=== PATIENT | male | born 1975 | race Caucasian/White ===

== ENCOUNTER 2024-06-02 18:22 | Outpatient (CLI) | payer OTHER, SELFPAY ==
[2024-06-02 18:29] LABS: Abs Immature Grans 0.01 10^3/uL (0.0-0.06); Absolute Basophil Count 0.06 10^3/uL (0.0-0.2); Absolute Eosinophil Count 0.09 10^3/uL (0.0-0.7); Absolute Lymphocyte Count 2.06 10^3/uL (1.2-3.4); Absolute Monocyte Count 0.54 10^3/uL (0.1-0.8); Absolute Neutrophil Count 3.02 10^3/uL (1.2-6.7); Eosinophils % 1.6 %; HCT 42.6 % (40.0-50.0); HGB 14.4 g/dL (13.5-17.5); Immature Grans % 0.2 %; Lymphocytes % 35.6 %; MCH 28.3 pg (27.0-33.0); MCHC 33.8 % (32.0-36.0); MCV 84 fL (80-95); Monocytes % 9.3 %; Neutrophils % 52.3 %; Platelet Count 220 10^3/uL (130-400); RBC 5.08 10^6/uL (4.36-5.78); RDW 12.6 % (11.8-14.1); RDW-SD 38.6 fL; WBC 5.78 10^3/uL (4.4-10.8)
[2024-06-02 18:44] LABS: ALT 31 U/L (16-63); AST 22 U/L (15-37); Albumin 4.4 g/dL (3.4-5.0); Alkaline Phosphatase 47 U/L (46-116); BUN 10 mg/dL (7-18); Bilirubin, Total 0.64 mg/dL (0.2-1.0); Calcium 8.9 mg/dL (8.5-10.1); Calculated LDL 93 mg/dL (<100); Chloride 105 mmol/L (98-107); Cholesterol 191 mg/dL (<200); Estimated GFR 93.42 (mL/min/1.73m2); Glucose 103 mg/dL (74-106); HDL Cholesterol 63 mg/dL (40-60); Potassium 4.5 mmol/L (3.5-5.1); Sodium 139 mmol/L (136-145); Total Protein 8.2 g/dL (6.4-8.2); Triglyceride 176 mg/dL (<150)
== END 2024-06-02 18:23 | disposition home or self-care (01) ==
LOC: LBO 18:23
PROVIDERS: PCP Nurse Practitioner; Visit Provider Nurse Practitioner
DX: I10 Essential (primary) hypertension (principal); E78.5 Hyperlipidemia, unspecified
CPT/HCPCS: 80053; 80061; 85025

== ENCOUNTER 2024-11-27 15:39 | Outpatient (CLI) | payer BC, SELFPAY ==
--- OUTSIDE RECORDS SUMMARY | 2024-11-27 15:41 | XMS_ITS | Referral Summary ---
Author Organization [facility] Address [address] [place] [address] Care Team Providers Care Hand Cigar Making Supervisor Name Role Phone None, Provider Primary Care Provider Unavailabl e Encounters Date Type Department Care Team Description 10/26/2024 Travel 10/26/2024 7:11 EST - 10/26/2024 7:37 EST Emergency [facility] Emergency Department [address] [place] [address] Raymundo Leslie MD Hypertension, unspecified type (Primary Dx) Discharge Disposition: Home or Self Care 10/24/2024 7:45 EST Phlebotomy Only [facility] - Outpatient Phlebotomy Drawing [address] [place], [place] [id number] Lab, [facility] Op Phlebotomy Immunity status testing from Last 3 Months Allergies No known active allergies Medications LORazepam (ATIVAN) 0.5 mg tabletIndications: Moderate anxiety,Psychophys iological insomnia Take 1 Tablet by mouth daily as needed for Anxiety. Daily Max: 0.5 mg 14 Tablet 1 2 Active polyethylene glycol 3350 (MIRALAX) 17 gram packet Take 17 g by mouth daily. Active irbesartan (AVAPRO) 300 mg tabletIndications: Essential (primary) hypertension Take 1 Tablet by mouth daily. 90 Tablet 3 3 Active fluocinonide (LIDEX) 0.05 % creamIndications:E czema, unspecified type 1 linda applied topically 3 times a day 30 g 1 3 Active rosuvastatin (CRESTOR) 20 mg tabletIndications: Mixed hyperlipidemia 1 tab(s) orally once a day (at bedtime) 90 Tablet 3 3 Active irbesartan (AVAPRO) 300 mg tablet Take 1 Tablet by mouth daily. 30 Tablet 4 Active Active Problems Problem Noted Date Diagnosed Date Essential (primary) hypertension 12/01/2019 Eczema 12/01/2019 Mixed hyperlipidemia 11/09/2019 Resolved Problems Problem Noted Date Diagnosed Date Resolved Date Ankle instability, left 12/29/2019/1 BMI 30.0-30.9,adult 12/29/2019 03/30/20 22 Hemangioma 12/29/2019 01/08/2020 History of basal cell cancer 12/29/2019 01/08/2020 Immunizations Name Administration Dates Next Due Covid-19 mRNA Booster Vaccin e (MODERNA COVID-19 BOOSTER) PF 0.25 mL IM (18 yrs+) 10/14/2021 Covid-19 mRNA Vaccine (MODER NA COVID-19) PF 0.5 ml IM (12 yrs+) 04/18/2021,03/21/2021 Covid-19 mRNA-LNP Bivalent V accine (Wellness[employer] BIVALENT VACCINE) PF 0.3 mL IM (12 yrs+) 12/07/2022 Hepatitis B Vaccine Adult IM 07/07/2021,02/04/20 21,01/03/2021 Historical Influenza Vaccine, Unspecified 2020 Influenza Vaccine Quad (AFLU MERON) PF 0.5 ml IM (3 yrs+) 09/22/2019,12/25/2016 Influenza Vaccine Quad (FLUZ ONE) MDV w/preserv 0.5 ml IM (6 mos+) 12/07/2022 Influenza Vaccine Quad PF 0. 5 ml IM (6 mos+) 08/30/2020 PPD Skin Test Placement 04/16/2021 Td (Adult) (TDVAX) 2 Lf Vaccine =>7yo IM 021,01/08/2020 Tdap Vaccine =>7YO IM 01/29/2010 Social History Tobacco Use Types Packs/Day Years Used Date Smoking Tobacco: Former Smokeless Tobacco: Never Tobacco Cessation:Counseling Given: Not Answered Humiliation, Afraid, Rape, and Kick questionnair e Answer Date Recorded Within the last year, have y ou been afraid of your partner or ex-partner? No 07/08/2020 Within the last year, have y ou been humiliated or emotionally abused in other ways by your partner or ex-partner? No Within the last year, have y ou been kicked, hit, slapped, or otherwise physically hurt by your partner or ex-partner? No 07/08/2020 Within the last year, have y ou been raped or forced to have any kind of sexual activity by your partner or ex-partner? No 07/08/2020 Overall Financial Resource Strain (CARDIA) Answe r Date Recorded How hard is it for you to pa y for the very basics like food, housing, medical care, and heating? Not hard at all 12/02/2021 PHQ-2 Answer Date Recorded PHQ-2 SUBTOTAL 0 05/06/2022 Hunger Vital Sign Answer Date Recorded Within the past 12 months, y ou worried that your food would run out before you got the money to buy more. Never true 12/02/19 22 Within the past 12 months, t he food you bought just didn't last and you didn't have money to get more. Never true 12/02/2021 PRAPARE - Transportation Answer Date Re corded In the past 12 months, has l ack of transportation kept you from medical appointments or from getting medications? No 02/2022 In the past 12 months, has l ack of transportation kept you from meetings, work, or from getting things needed for daily living? No 12/02/2021 Housing Stability Vital Sign Answer Brenton e Recorded In the last 12 months, was t here a time when you were not able to pay the mortgage or rent on time? No 12/02/2021 Number of Places Lived in the Last Year Not on f ile 12/02/2021 In the last 12 months, was t here a time when you did not have a steady place to sleep or slept in a assisted (including now)? No 12/02/2021 Interpersonal Safety Answer Date Record ed How often does anyone, melvin jeong family, hit, punch or physically hurt you? Never 12/02/2021 How often does anyone, melvin jeong family, insult, scream, curse or threaten to hurt you? Never 12/02/2021 Sex and Gender Information Value Date Recorded Sex Assigned at Male 10/24/2024 7:41 EST Legal Sex Male 18:41 EST Gender Identity Male 01/03/2020 14:38 EST Sexual Orientation Not on file Last Filed Vital Signs Vital Sign Reading Time Taken Comments Blood Pressure 180/106 10/26/2024 0737 EST Pulse 45 10/26/2024 0737 EST Temperature 36.7 ??C (98 ??F) 10/26/2024 0712 EST Respiratory Rate 16 10/26/2024 0737 EST Oxygen Saturation 99% 10/26/2024 0737 EST Inhaled Oxygen Concentration - - Weight 93.4 kg (206 lb) 10/26/2024 0727 EST Height 172.7 cm (5' 8) 10/26/2024 0721 EST Body Mass Index 31.32 10/26/2024 0721 EST Plan of Treatment Not on file Procedures Procedure Name Priority Date/Time Associated Diagnosis Comments HEPATITIS B SURFACE ANTIBODY Routine 10/24/2024 7:47 EST Immunity status testing VARICELLA IGG ANTIBODY Routine 10/24/2024 7:47 EST Immunity status testing HEPATITIS C AB W REFLEX TO HCV RNA BY PCR Routine 12/15/2022 12:55 EST Routine screening for STI (sexually transmitted infection) HIV 1/2 ANTIGEN AND ANTIBODY, 4TH GENERATION Routine 12/15/2022 12:55 EST Routine screening for STI (sexually transmitted infection) LIPID PROFILE (INCLUDES CHOLESTEROL, TRIGLYCERIDES, HDL, LDL) Routine 12/15/2022 12:55 EST Mixed hyperlipidemia from Last 3 Months or Most Recently Relevant to Health Maintenance Results * HEPATITIS B SURFACE ANTIBODY (10/24/2024 7:47 EST) Hep B Surface Ab, Quantitative >1,000.0 See Note mIU/mL 10/24/2024 12:28 EST [facility] Comment: Clinical Interpretation of Immune Status: Anti-HBs detected at >10 mIU/mL. Patient is considered to be immune to infection with HBV. It has not been determined what the clinical significance is for values greater than or = 12 mIU/mL, other than the individual is considered to be immune to HBV infection. Reference Range for Hep B Surface Ab, Quant: Positive: ?>= 12.00 mIU/mL Negative: ?< 5.00 mIU/mL Indeterminate: ??>= 5.00 mIU/mL and < 12.00 mIU/mL Blood VENOUS BLOOD / Unknown Venipuncture / Unknown 10/24/2024 7:47 EST 10/24/2024 8:39 EST us Alondra Head MD CHEMISTRY & BLOOD GAS ORDERABL ES Final Result Performing Organization Address [facility] Co de Phone Number [facility] [address] [place] [phone] * VARICELLA IGG ANTIBODY (10/24/2024 7:47 EST) Varicella IgG Ab Positive See Note 10/24/2024 20:49 EST [facility] Blood VENOUS BLOOD / Unknown Venipuncture / Unknown 10/24/2024 7:47 EST 10/24/2024 8:39 EST us Alondra Head MD IMMUNOLOGY AND SEROLOGY ORDERA BLES Final Result Performing Organization Address [facility] Co de Phone Number [facility] [address] [place], [place] [phone] * HEPATITIS C AB W REFLEX TO HCV RNA BY PCR (12/15/2022 12:55 EST) Hep C Antibody Negative Negative 12/15/2022 15:23 EST [facility] Blood VENOUS BLOOD / Unknown Venipuncture / Unknown 12/15/2022 12:55 EST 12/15/2022 13:49 EST Carlee Castillo DNP CHEMISTRY & BLOOD GAS ORDERABLES Final Result Performing Organization Address [facility]/ZIP Co de Phone Number [facility] [address] [place] [address] * HIV 1/2 ANTIGEN AND ANTIBODY, 4TH GENERATION (12/15/2022 12:55 EST) Pathologist [facility] HIV 1 and 2 Antibody/p24 Antigen, 4th Generation Negative Negative 12/15/2022 15:10 [facility] Comment:If acute HIV-1 infec tion is suspected in a high risk patient, submit plasma specimen for HIV-1 RNA quantitation test. Blood VENOUS BLOOD / Unknown Venipuncture / Unknown 12/15/2022 12:55 EST 12/15/2022 13:49 EST us Carlee Castillo DNP IMMUNOLOGY AND SEROLOGY ORDERABL ES Final Result [facility] [address] [place] [address] * (ABNORMAL) LIPID PROFILE (INCLUDES CHOLESTEROL, TRIGLYCERIDES, HDL, LDL) (12/15/2022 12:55 EST) [facility] Cholesterol 167 <200 mg/dL 12/15/2022 14:32 [facility] Comment:Note that therapeuti c goals will differ between patients based on cardiac risk factors and current medical therapy. HDL 54 >=40 mg/dL 12/15/2022 14:32 [facility] Comment:Note that therapeuti c goals will differ between patients based on cardiac risk factors and current medical therapy. LDL, Calculated 67 <160 mg/dL 14:32 [facility] Comment:Note that therapeuti c goals will differ between patients based on cardiac risk factors and current medical therapy. Triglyceride 232(H) <=150 mg/dL 12/15/2022 14:32 [facility] Comment:Note that therapeuti c goals will differ between patients based on cardiac risk factors and current medical therapy. Chol/HDL Ratio 3.1 See Note 12/15/2022 14:32 [facility] Comment: NOTE: Desirable Ratio = <4.1 Patient At Risk Ratio = >5.0(Males) ?>6.0(Females) Non HDL Cholesterol 113 <160 mg/dL 12/15/2022 14:32 EST [facility] Comment:Note that therapeuti c goals will differ between patients based on cardiac risk factors and current medical therapy. Blood VENOUS BLOOD / Unknown Venipuncture / Unknown 12/15/2022 12:55 EST 12/15/2022 13:49 EST Carlee Jonathan DNP CHEMISTRY & BLOOD GAS ORDERABLES Final Result Performing Organization Address City/State/[facility] Co de Phone Number [facility] [address] [place] [phone] from Last 3 Months or Most Recently Relevant to Health Maintenance Insurance [facility] Care Teams Hand Cigar Making Supervisor Relationship Specialty Start Date End Date None, Provider PCP - General 10/24/24
--- OUTSIDE RECORDS SUMMARY | 2024-11-27 15:41 | XMS_ITS | Clinical Summary ---
Author Organization [facility] Address [address] [place] [address] Care Team Providers Care Industrial Maintenance Repairer Helper Name Role Phone None, Provider Primary Care Provider Unavailabl e Allergies No known active allergies Medications LORazepam [...] Diagnosed Date Resolved Date Ankle instability, left 12/29/201912/30 BMI 30.0-30.9,adult 12/29/2019 03/30/20 22 Hemangioma 12/29/2019 01/08/2020 History of basal cell cancer 12/29/2019 01/08/2020 Encounters Date Type Department Care Team Description 10/26/2024 7:11 EST - 10/26/2024 7:37 EST Emergency [facility] Emergency Department [address] [place] [address] Raymundo Leslie MD Hypertension, unspecified type (Primary Dx) Discharge Disposition: Home or Self Care 10/26/2024 Travel 10/24/2024 7:45 EST Phlebotomy Only [facility] - Outpatient Phlebotomy Drawing [address] [place] [address] Lab, [facility] Op Phlebotomy Immunity status testing from Last 3 Months Immunizations Name Administration Dates Next Due Covid-19 mRNA Booster Vaccin e (MODERNA COVID-19 BOOSTER) PF 0.25 mL IM (18 yrs+) 10/14/2021 Covid-19 mRNA Vaccine (MODER NA COVID-19) PF 0.5 ml IM (12 yrs+) 04/18/2021,03/21/2021 Covid-19 mRNA-LNP Bivalent V accine ([employer] BIVALENT VACCINE) PF 0.3 mL IM (12 [...] IM 021,01/08/2020 Tdap Vaccine =>9YO IM 01/29/2010 Surgical History Surgery Date Site/Laterality Comments SKIN CANCER EXCISION age 24, basal cell VASECTOMY 11/29/2016 - 11/28/2017 Medical History Medical History Date Comments Hypertension Eczema Facial basal cell cancer Hyperlipemia Hemangioma 12/29/2019 History of basal cell cancer 12/29/2019 Ankle instability, left 12/29/2019 Family History Medical History Relation Comments Arthritis Father Colon Cancer Maternal Grandfather Cancer Mother High Cholesterol Mother Myelodysplastic syndrome Mother Anxiety Disorder Sister Depression Sister Relation Status Comments Brother Daughter 1 Alive Daughter 2 Alive Father Alive Maternal Grandfather Mother Sister Alive Social History Tobacco Use Types Packs/Day Years [...] place to sleep or slept in a longterm (including now)? No 12/02/2021 Interpersonal Safety Answer Date Record ed How often does anyone, incldejan jeong family, hit, punch or physically hurt you? Never 12/02/2021 How often does anyone, incldejan jeong family, insult, scream, curse or threaten to hurt you? Never 12/02/2021 Sex and Gender Information Value Date Recorded Sex Assigned at Male 10/24/2024 7:41 EST Legal Sex Male 18:41 EST Gender Identity Male 01/03/2020 14:38 EST Sexual Orientation Not on file Obstetrics History Last Filed Vital Signs Vital Sign Reading [...] 31.32 10/26/2024 0721 EST Plan of Treatment Health Maintenance Due Date Last Done Comments Advance Directive 1995 Preventive Care Visit 01/08/2022 01/08/2020 Cologuard (Colon Cancer Screening) 2022 Colonoscopy (Colon Cancer Screening) 2022 Colorectal Cancer Screening 2022 FIT Test (Colon Cancer Screening) 2022 Sigmoidoscopy (Colon Cancer Screening) 2022 Social Determinants Of Healt h (SDOH) 12/02/2022 12/02/2021, 07/08/2020 Depression Screening 05/06/2023 05/06/2022, 06/26/2021, 01/08/2020 COVID-19 Vaccine (2023- 5 season) 2024 12/07/2022, 10/14/2021, 04/18/2021, Additional history exists Influenza Immunization (Adul t) (#1) 2024 12/07/2022, 09/09/2021, 08/30/2020, Additional history exists Lipid Profile Screening (Cholesterol) 12/15/2027 12/15/2022, 12/11/2021, 10/30/2021, Additional history exists Tetanus (Adult) Immunization 12/06/203006/2021, 01/08/2020, 01/29/2010 Pertussis (Adult) Immunization Completed 01/29/2010 Hepatitis B Vaccine Completed 07/07/2021, 02/03/2021, 01/03/2021 HIV Screening Completed 12/15/2022, 10/30/2021 Hepatitis C Screen Completed 12/15/2022, 10/30/2021 Procedures Procedure Name Priority Date/Time Associated Diagnosis [...] HEPATITIS B SURFACE ANTIBODY (10/24/2024 7:47 EST) [facility] Signature Hep B Surface Ab, Quantitative >1,000.0 See Note mIU/mL 10/24/2024 12:28 EST [facility] Comment: Clinical Interpretation of [...] ORDERABL ES Final Result Performing Organization Address [facility]/ZIP Co de Phone Number [facility] [address] [place] [address] * VARICELLA IGG ANTIBODY (10/24/2024 7:47 EST) Pathologist [facility] Varicella IgG Ab Positive See Note 10/24/2024 20:49 EST [facility] Blood VENOUS BLOOD / Unknown Venipuncture / Unknown 10/24/2024 7:47 EST 10/24/2024 8:39 EST Result [facility] Alondra Head MD IMMUNOLOGY AND SEROLOGY ORDERA BLES Final Result Performing Organization Address [facility] Co de Phone Number [facility] [address] [place] [phone] * HEPATITIS C AB W REFLEX TO HCV RNA BY PCR (12/15/2022 12:55 EST) Pathologist [facility] Hep C Antibody Negative Negative 12/15/2022 15:23 EST [facility] Blood VENOUS BLOOD / Unknown Venipuncture / Unknown 12/15/2022 12:55 EST 12/15/2022 13:49 EST us Carlee Castillo DNP CHEMISTRY & BLOOD GAS ORDERABLES Final Result Performing Organization Address [facility] Co de Phone Number [facility] [address] [place] [address] * HIV 1/2 ANTIGEN AND ANTIBODY, 4TH GENERATION (12/15/2022 12:55 EST) Pathologist [facility] HIV 1 and 2 Antibody/p24 Antigen, 4th Generation Negative Negative 12/15/2022 15:10 EST [facility] Comment:If acute HIV-1 infec tion is suspected in a high risk patient, submit plasma specimen for HIV-1 RNA quantitation test. Blood VENOUS BLOOD / Unknown Venipuncture / Unknown 12/15/2022 12:55 EST 12/15/2022 13:49 EST us Carlee Castillo DNP IMMUNOLOGY AND SEROLOGY ORDERABL ES Final Result [facility] [address] [place] [address] * (ABNORMAL) LIPID PROFILE (INCLUDES CHOLESTEROL, TRIGLYCERIDES, HDL, LDL) (12/15/2022 12:55 EST) [facility] Cholesterol 167 <200 mg/dL 12/15/2022 14:32 [facility] Comment:Note that therapeuti c goals will differ between patients based on cardiac risk factors and current medical therapy. HDL 54 >=40 mg/dL 12/15/2022 14:32 [facility] Comment:Note that therapeuti c goals will differ between patients based on cardiac risk factors and current medical therapy. LDL, Calculated 67 <160 mg/dL 14:32 [facility] Comment:Note that therapeuti c goals will differ between patients based on cardiac risk factors and current medical therapy. Triglyceride 232(H) <=150 mg/dL 12/15/2022 14:32 [facility] Comment:Note that therapeuti c goals will differ between patients based on cardiac risk factors and current medical therapy. Chol/HDL Ratio 3.1 See Note 12/15/2022 14:32 [facility] Comment: NOTE: Desirable Ratio = <4.1 Patient At Risk Ratio = >5.0(Males) ?>6.0(Females) Non HDL Cholesterol 113 <160 mg/dL 12/15/2022 14:32 [facility] Comment:Note that therapeuti c goals will differ between patients based on cardiac risk factors and current medical therapy. Blood VENOUS BLOOD / Unknown Venipuncture / Unknown 12/15/2022 12:55 EST 12/15/2022 13:49 EST Carlee Castillo DNP CHEMISTRY & BLOOD GAS ORDERABLES Final Result [facility] [address] [place] [address] from Last 3 Months or Most Recently Relevant to Health Maintenance Insurance [facility] Care Teams Industrial Maintenance Repairer Helper Relationship Specialty Start Date End Date None, Provider PCP - General 10/24/24
--- OUTSIDE RECORDS SUMMARY | 2024-11-27 15:42 | XMS_ITS | Encounter Summary ---
Author Organization [facility] Address [address] [place] [address] Care Team Providers Care Teachers' Assistant Name Role Phone Carlee Castillo DNP Primary Care Provider [phone] Encounter Details Date Type Department Care Team (Late st Contact Info) Description 12/15/2022 12:50 EST Phlebotomy Only [facility] - Outpatient Phlebotomy Drawing [address] [place], [place] [id number] Lab, [facility]omy Essential (primary) hypertension; Mixed hyperlipidemia; Routine screening for STI (sexually transmitted infection) Social History Tobacco Use Types Packs/Day Years Used Date Smoking Tobacco: Former Smokeless Tobacco: Never Humiliation, Afraid, Rape, and Kick questionnair e [...] place to sleep or slept in a long term (including now)? No 12/02/2021 Interpersonal Safety Answer Date Record ed How often does anyone, inclu adenike family, hit, punch or physically hurt you? Never 12/02/2021 How often does anyone, inclu adenike family, insult, scream, curse or threaten to hurt you? Never 12/02/2021 Sex and Gender Information Value Date Recorded Sex Assigned at Male 10/24/2024 7:41 EST Legal Sex Male 18:41 EST Gender Identity Male 01/03/2020 14:38 EST Sexual Orientation Not on file documented as of this encounter Plan of Treatment Not on file documented as of this encounter Procedures Procedure Name Priority Date/Time Associated Diagnosis Comments SYPHILIS RPR SCREEN W/REFLEX Routine 12/15/2022 12:55 EST Routine screening for STI (sexually transmitted infection) CHLAMYDIA/N. GONORRHOEAE AMPLIFIED NUCLEIC ACID Routine 12/15/2022 12:55 EST Routine screening for STI (sexually transmitted infection) HEPATITIS C AB W REFLEX TO HCV RNA BY PCR Routine 12/15/2022 12:55 EST Routine screening for STI (sexually transmitted infection) HIV 1/2 ANTIGEN AND ANTIBODY, 4TH GENERATION Routine 12/15/2022 12:55 EST Routine screening for STI (sexually transmitted infection) LIPID PROFILE (INCLUDES CHOLESTEROL, TRIGLYCERIDES, HDL, LDL) Routine 12/15/2022 12:55 EST Mixed hyperlipidemia COMPREHENSIVE METABOLIC PANEL (CMP) Routine 12/15/2022 12:55 EST Essential (primary) hypertension Mixed hyperlipidemia documented in this encounter Results * SYPHILIS RPR SCREEN W/REFLEX (12/15/2022 12:55 EST) Rapid Plasma Reagin Screen (RPR) Nonreactive Nonreactive 12/17/2022 8:[address] [facility] Blood VENOUS BLOOD / Unknown Venipuncture / Unknown 12/15/2022 12:55 EST 12/15/2022 13:49 EST Carlee Castillo DNP IMMUNOLOGY AND SEROLOGY ORDERABL ES Final Result [facility] [address] [place] [address] * HEPATITIS C AB W REFLEX TO HCV RNA BY PCR (12/15/2022 12:55 EST) Hep C Antibody Negative Negative 12/15/2022 15:[address] [facility] Blood VENOUS BLOOD / Unknown Venipuncture / Unknown 12/15/2022 12:55 EST 12/15/2022 13:49 EST Carlee Castillo DNP CHEMISTRY & BLOOD GAS ORDERABLES Final Result [facility] [address] [place] [address] * HIV 1/2 ANTIGEN AND ANTIBODY, 4TH GENERATION (12/15/2022 12:55 EST) HIV 1 and 2 Antibody/p24 Antigen, 4th Generation Negative Negative 12/15/2022 15:[address] [facility] Comment:If acute HIV-1 infec tion is suspected in a high risk patient, submit plasma specimen for HIV-1 RNA quantitation test. Blood VENOUS BLOOD / Unknown Venipuncture / Unknown 12/15/2022 12:55 EST 12/15/2022 13:49 EST Carlee Castillo DNP IMMUNOLOGY AND SEROLOGY ORDERABL ES Final Result Performing Organization Address [facility] Co de Phone Number [facility] [address] [place] [address] * CHLAMYDIA/N. GONORRHOEAE AMPLIFIED RNA (12/15/2022 12:55 EST) Neisseria gonorrhoeae Result Negative Negative 12/15/2022 16:[address] [facility] Chlamydia trachomatis Result Negative Negative 12/15/2022 16:[address] [facility] Urine URINE / Unknown Urine Collect / Unknown 12/15/2022 12:55 EST 12/15/2022 13:[address] [facility] - 12/15/2022 16:57 EST ? ? Xpert CT/NG Assay performance has not been evaluated in patients less than 14 years of age. Carlee Castillo DNP MICROBIOLOGY - GENERAL ORDERABLE S Final Result Performing Organization Address [facility] de Phone Number [facility] [address] [place] [address] * (ABNORMAL) LIPID PROFILE (INCLUDES CHOLESTEROL, TRIGLYCERIDES, HDL, LDL) (12/15/2022 12:55 EST) Cholesterol 167 <200 mg/dL 12/15/2022 14:32 [facility] Comment:Note that therapeuti c goals will differ between patients based on cardiac risk factors and current medical therapy. HDL 54 >=40 mg/dL 12/15/2022 14:32 [facility] Comment:Note that therapeuti c goals will differ between patients based on cardiac risk factors and current medical therapy. LDL, Calculated 67 <160 mg/dL 14:32 [facility] Comment:Note that therapeuti c goals will differ between patients based on cardiac risk factors and current medical therapy. Triglyceride 232(H) <=150 mg/dL 12/15/2022 14:32 [facility] Comment:Note that therapeuti c goals will differ between patients based on cardiac risk factors and current medical therapy. Chol/HDL Ratio 3.1 See Note 12/15/2022 14:32 [facility] Comment: NOTE: Desirable Ratio = <4.1 Patient At Risk Ratio = >5.0(Males) ?>6.0(Females) Non HDL Cholesterol 113 <160 mg/dL 12/15/2022 14:32 [facility] Comment:Note that therapeuti c goals will differ between patients based on cardiac risk factors and current medical therapy. Blood VENOUS BLOOD / Unknown Venipuncture / Unknown 12/15/2022 12:55 EST 12/15/2022 13:49 EST Carlee Castillo [facility] CHEMISTRY & BLOOD GAS ORDERABLES Final Result [facility] [address] [place] [address] * (ABNORMAL) COMPREHENSIVE METABOLIC PANEL (CMP) (12/15/2022 12:55 EST) Sodium 142 136 - 145 mmol/L 12/15/2022 14:32 [facility] Potassium 4.5 3.5 - 5.0 mmol/L 12/15/2022 14:32 [facility] Chloride 103 96 - 110 mmol/L 12/15/2022 14:32 [facility] CO2 Total 27 22 - 32 mmol/L 12/15/2022 14:32 [facility] Glucose 101(H) 70 - 100 mg/dL 12/15/2022 14:32 [facility] BUN 12 10 - 26 mg/dL 12/15/2022 14:32 [facility] Creatinine 0.79 0.66 - 1.25 mg/dL 12/15/2022 14:32 [facility] eGFR 112 >60 mL/min/1.7 3m2 12/15/2022 14:32 [facility] Total Protein 7.9 6.3 - 8.2 g/dL 12/15/2022 14:32 [facility] Albumin 5.0(H) 3.4 - 4.9 g/dL 12/15/2022 14:32 [facility] Alkaline Phosphatase 43 38 - 126 U/L 12/15/2022 14:32 [facility] AST 28 15 - 46 U/L 12/15/2022 14:32 [facility] ALT 32 <50 U/L 12/15/2022 14:32 [facility] Bilirubin, Total 0.5 <1.4 mg/dL 12/15/19 14:32 [facility] Calcium 9.3 8.5 - 10.5 mg/dL 12/15/2022 14:32 [facility] Albumin/Globulin Ratio 1.7 1.0 - 2.5 12/15/2022 14:32 [facility] Anion Gap 12 5 - 14 12/15/2022 14:32 [facility] Blood VENOUS BLOOD / Unknown Venipuncture / Unknown 12/15/2022 12:55 EST 12/15/2022 13:49 EST Carlee Castillo DNP CHEMISTRY & BLOOD GAS ORDERABLES Final Result Performing Organization Address City/State/[facility] Co de Phone Number [facility] [address] [place] [address] documented in this encounter Visit Diagnoses Diagnosis Essential (primary) hypertension Unspecified essential hypertension Mixed hyperlipidemia Routine screening for STI (sexually transmitted infection) Screening examination for venereal disease documented in this encounter Care Teams Teachers' Assistant Relationship Specialty Start Date End Date Carlee Castillo DNP [address] [place] [id number] PCP - General 10/25/19 07/20/23 documented as of this encounter
--- OUTSIDE RECORDS SUMMARY | 2024-11-27 15:42 | XMS_ITS | Encounter Summary ---
Author Organization [facility] Address [address] [place] [address] Care Team Providers Care Labview Programmer Name Role Phone Carlee Castillo DNP Primary Care Provider [phone] None, Provider Primary Care Provider Unavailabl e Reason for Visit * Reason Onset Date Comments Appointment Related 07/22/2022 Encounter Details Date Type Department Care Team (Late st Contact Info) Description 07/22/2022 Telephone [facility] General Surgery [address] [place] [address] Ted Aranda MD [address] [facility], [facility] [address] [place] [address] Appointment Related Social History Tobacco Use Types Packs/Day Years [...] place to sleep or slept in a fpc (including now)? No 12/02/2021 Interpersonal Safety Answer [...] on file documented as of this encounter Miscellaneous Notes * Telephone Encounter - Wendy Avina - 07/22/2022 1702 EDT Left message for patient to call back to reschedule his appointment. Please transfer the call to Wendy to schedule documented in this encounter Plan of Treatment Not on file documented as of this encounter Visit Diagnoses Not on filedocumented in this encounter Care Teams Labview Programmer Relationship Specialty Start Date End Date Carlee Castillo DNP [address] [place] [id number] PCP - General 10/25/19 07/20/23 None, Provider PCP - General 10/24/24 documented as of this encounter
--- OUTSIDE RECORDS SUMMARY | 2024-11-27 15:42 | XMS_ITS | Encounter Summary ---
Author Organization [facility] Address [address] [place] [address] Care Team Providers Care Community Cultural Development Officer Name Role Phone Unavailable Primary Care Provider Unavailabl e Encounter Details Date Type Department Care Team (Late st Contact Info) Description 07/06/2024 10:25 EDT Phlebotomy Only [facility] - Outpatient Phlebotomy Drawing [address] [place] [address] Lab, [facility] [place] [facility] Phlebotomy Immunity status testing; Screening-pulmonary TB Social History Tobacco Use Types Packs/Day Years [...] place to sleep or slept in a snf (including now)? No 12/02/2021 Interpersonal Safety Answer [...] Procedure Name Priority Date/Time Associated Diagnosis Comments QUANTIFERON MITOGEN (PERFORMABLE) Routine 07/06/2024 10:40 EDT Screening-pulmonar y TB QUANTIFERON TB2 (PERFORMABLE) Routine 07/06/2024 10:40 EDT Screening-pulmonar y TB QUANTIFERON TB1 (PERFORMABLE) Routine 07/06/2024 10:40 EDT Screening-pulmonar y TB QUANTIFERON NIL (PERFORMABLE) Routine 07/06/2024 10:40 EDT Screening-pulmonar y TB QUANTIFERON INTERPRETATION (PERFORMABLE) Today 07/06/2024 10:40 EDT Screening-pulmonar y TB QUANTIFERON TB GOLD PLUS Routine 07/06/2024 10:40 EDT Screening-pulmonar y TB MEASLES IGG AB Routine 07/06/2024 10:40 EDT Immunity status testing RUBELLA IGG ANTIBODY Routine 07/06/2024 10:40 EDT Immunity status testing HEPATITIS B SURFACE ANTIBODY Routine 07/06/2024 10:40 EDT Immunity status testing VARICELLA IGG ANTIBODY Routine 10:40 EDT Immunity status testing MUMPS ANTIBODY IGG Routine 07/06/2024 10 :40 EDT Immunity status testing documented in this encounter Results * QUANTIFERON INTERPRETATION (PERFORMABLE) (07/06/2024 10:40 EDT) [facility] Quantiferon Interpretation Negative Negative 07/10/2024 12:33 EDT [facility] Comment:No interferon-gamma response to M. tuberculosis antigens was detected. ??Infection with M. tuberculosis is unlikely. A single negative result does not exclude infection with M. tuberculosis. ??In patients at high risk for M. tuberculosis infection, a second test should be considered. TB1 Ag minus Nil 0.00 IU/ml 07/10/20 24 12:33 EDT [facility] TB2 Ag minus Nil 0.00 IU/mL 07/10/20 24 12:33 EDT [facility] Blood VENOUS BLOOD / Unknown Venipuncture / Unknown 07/06/2024 10:40 EDT 07/10/2024 11:46 EDT us Alondra Head MD IMMUNOLOGY AND SEROLOGY ORDERA BLES Final Result [facility] [address] [place] [address] * QUANTIFERON MITOGEN (PERFORMABLE) (07/06/2024 10:40 EDT) Blood VENOUS BLOOD / Unknown Venipuncture / Unknown 07/06/2024 10:40 EDT 07/06/2024 15:24 EDT us Alondra Head MD IMMUNOLOGY AND SEROLOGY ORDERA BLES Final Result Performing Organization Address City/[facility]/ZIP Co de Phone Number [facility] [address] [place] [address] * QUANTIFERON TB2 (PERFORMABLE) (07/06/2024 10:40 EDT) Blood VENOUS BLOOD / Unknown Venipuncture / Unknown 07/06/2024 10:40 EDT 07/06/2024 12:45 EDT us Alondra Head MD IMMUNOLOGY AND SEROLOGY ORDERA BLES Final Result Performing Organization Address [facility] Co de Phone Number [facility] [address] [place] [phone] * QUANTIFERON TB1 (PERFORMABLE) (07/06/2024 10:40 EDT) Blood VENOUS BLOOD / Unknown Venipuncture / Unknown 07/06/2024 10:40 EDT 07/06/2024 12:45 EDT us Alondra Head MD IMMUNOLOGY AND SEROLOGY ORDERA BLES Final Result Performing Organization Address City/[facility]/ZIP Co de Phone Number [facility] [address] [place] [address] * QUANTIFERON NIL (PERFORMABLE) (07/06/2024 10:40 EDT) Blood VENOUS BLOOD / Unknown Venipuncture / Unknown 07/06/2024 10:40 EDT 07/06/2024 12:45 EDT us Alondra Head MD IMMUNOLOGY AND SEROLOGY ORDERA BLES Final Result Performing Organization Address City/[facility]/ZIP Co de Phone Number [facility] [address] [place] [phone] * HEPATITIS B SURFACE ANTIBODY (07/06/2024 10:40 EDT) Hep B Surface Ab, Quantitative 4.3 See Note mIU/mL 07/06/2024 12:45 EDT [facility] Comment: Clinical Interpretation of Immune Status: Patient is considered to be not immune to infection with HBV. Reference Range for Hep B Surface Ab, Quant: Positive: ?>= 12.00 mIU/mL Negative: ?< 5.00 mIU/mL Indeterminate: ??>= 5.00 mIU/mL and < 12.00 mIU/mL Blood VENOUS BLOOD / Unknown Venipuncture / Unknown 07/06/2024 10:40 EDT 07/06/2024 11:30 EDT us Alondra Head MD CHEMISTRY & BLOOD GAS ORDERABL ES Final Result Performing Organization Address City/[facility]/ZIP Co de Phone Number [facility] [address] [place] [address] * VARICELLA IGG ANTIBODY (07/06/2024 10:40 EDT) Pathologist [facility] Varicella IgG Ab Negative See Note 07/07/2024 23:29 EDT [facility] Blood VENOUS BLOOD / Unknown Venipuncture / Unknown 07/06/2024 10:40 EDT 07/06/2024 11:30 EDT us Alondra Head MD IMMUNOLOGY AND SEROLOGY ORDERA BLES Final Result Performing Organization Address [facility]/ZIP Co de Phone Number [facility] [address] [place] [address] * RUBELLA IGG ANTIBODY (07/06/2024 10:40 EDT) Rubella IgG Ab Positive See Note 07/06/2024 12:24 EDT [facility] Comment:The presence of Rube lla IgG suggests immunity against Rubella. Blood VENOUS BLOOD / Unknown Venipuncture / Unknown 07/06/2024 10:40 EDT 07/06/2024 11:30 EDT us Alondra Head MD CHEMISTRY & BLOOD GAS ORDERABL ES Final Result Performing Organization Address [facility]/ZIP Co de Phone Number [facility] [address] [place] [address] * MUMPS ANTIBODY IGG (07/06/2024 10:40 EDT) Mumps Antibody IgG Positive See Note 07/07/2024 22:21 EDT [facility] Comment:Presence of detectab le mumps virus IgG antibodies. Blood VENOUS BLOOD / Unknown Venipuncture / Unknown 07/06/2024 10:40 EDT 07/06/2024 11:30 EDT us Alondra Head MD IMMUNOLOGY AND SEROLOGY ORDERA BLES Final Result Performing Organization Address [facility] Co de Phone Number [facility] [address] [place] [address] * MEASLES IGG AB (07/06/2024 10:40 EDT) Measles IgG Ab Positive See Note 07/07/2024 22:22 EDT [facility] Comment:Presence of detectab le measles virus IgG antibodies. Blood VENOUS BLOOD / Unknown Venipuncture / Unknown 07/06/2024 10:40 EDT 07/06/2024 11:30 EDT us Alondra Head MD IMMUNOLOGY AND SEROLOGY ORDERA BLES Final Result Performing Organization Address [facility]/ZIP Co de Phone Number [facility] [address] [place] [phone] documented in this encounter Visit Diagnoses Diagnosis Immunity status testing Antibody response examination Screening-pulmonary TB Screening examination for pulmonary tuberculosis documented in this encounter
--- OUTSIDE RECORDS SUMMARY | 2024-11-27 15:42 | XMS_ITS | Encounter Summary ---
Author Organization [facility] Address [address] [place] [address] Care Team Providers Care Associate Biological Sales Name Role Phone None, Provider Primary Care Provider Unavailabl e Encounter Details Date Type Department Care Team (Late st Contact Info) Description 09/23/2023 Lab Requisition [facility] Pathology & Laboratory Medicine - [facility] [address] [place] [address] Outr Resulting Lab, Provider Social History Tobacco Use Types Packs/Day Years [...] place to sleep or slept in a long-term (including now)? No 12/02/2021 Interpersonal Safety Answer [...] Date/Time Associated Diagnosis Comments QUANTIFERON MITOGEN (PERFORMABLE) Today 09/22/2023 14:10 EDT QUANTIFERON TB2 (PERFORMABLE) Today 09/22/2023 14:10 EDT QUANTIFERON TB1 (PERFORMABLE) Today 09/22/2023 14:10 EDT QUANTIFERON NIL (PERFORMABLE) Today 09/22/2023 14:10 EDT QUANTIFERON INTERPRETATION (PERFORMABLE) Today 09/22/2023 14:10 EDT QUANTIFERON TB GOLD PLUS Routine 09/22/2023 14:10 EDT documented in this encounter Results * QUANTIFERON INTERPRETATION (PERFORMABLE) (09/22/2023 14:10 EDT) Quantiferon Interpretation Negative Negative 09/24/2023 11:32 EDT [facility] Comment:No interferon-gamma response to M. tuberculosis antigens was detected. ??Infection with M. tuberculosis is unlikely. A single negative result does not exclude infection with M. tuberculosis. ??In patients at high risk for M. tuberculosis infection, a second test should be considered. TB1 Ag minus Nil 0.00 IU/ml 09/24/20 11:32 EDT [facility] TB2 Ag minus Nil 0.00 IU/mL 09/24/20 11:32 EDT [facility] Blood VENOUS BLOOD / Unknown 09/22/2023 14:10 EDT 09/24/2023 10:40 EDT Narrative [facility] - 09/24/2023 11:32 EDT Results were obtained with the [employer] QuantiFERON-TB Gold Plus CLIA. New platform in use 08/06/2021 us Provider Outr Resulting Lab IMMUNOLOGY AND SEROL OGY ORDERABLES Final Result Performing Organization Address [facility] Co de Phone Number [facility] [address] [place] [address] * QUANTIFERON MITOGEN (PERFORMABLE) (09/22/2023 14:10 EDT) Blood VENOUS BLOOD / Unknown 09/22/2023 14:10 EDT 09/23/2023 19:35 EDT us Provider Outr Resulting Lab IMMUNOLOGY AND SEROL OGY ORDERABLES Final Result Performing Organization Address City/[facility]/ZIP Co de Phone Number [facility] [address] [place] [address] * QUANTIFERON TB2 (PERFORMABLE) (09/22/2023 14:10 EDT) Blood VENOUS BLOOD / Unknown 09/22/2023 14:10 EDT 09/23/2023 19:35 EDT us Provider Outr Resulting Lab IMMUNOLOGY AND SEROL OGY ORDERABLES Final Result Performing Organization Address City/[facility]/ZIP Co de Phone Number [facility] [address] [place] [address] * QUANTIFERON TB1 (PERFORMABLE) (09/22/2023 14:10 EDT) Blood VENOUS BLOOD / Unknown 09/22/2023 14:10 EDT 09/23/2023 19:35 EDT us Provider Outr Resulting Lab IMMUNOLOGY AND SEROL OGY ORDERABLES Final Result Performing Organization Address [facility] Co de Phone Number [facility] [address] [place] [address] * QUANTIFERON NIL (PERFORMABLE) (09/22/2023 14:10 EDT) Blood VENOUS BLOOD / Unknown 09/22/2023 14:10 EDT 09/23/2023 19:35 EDT us Provider Outr Resulting Lab IMMUNOLOGY AND SEROL OGY ORDERABLES Final Result Performing Organization Address City/[facility] Co de Phone Number [facility] [address] [place] [address] documented in this encounter Visit Diagnoses Not on filedocumented in this encounter Care Teams Associate Biological Sales Relationship Specialty Start Date End Date None, Provider PCP - General 10/24/24 documented as of this encounter
--- OUTSIDE RECORDS SUMMARY | 2024-11-27 15:42 | XMS_ITS | Encounter Summary ---
Author Organization [facility] Address [address] [place] [address] Care Team Providers Care Electric Deicer Inspector Name Role Phone Carlee Castillo DNP Primary Care Provider [phone] Reason for Visit * Reason Comments Mood Disorder Follow up Encounter Details Date Type Department Care Team (Latest Contact Info) Description 05/06/2022 14:00 EDT Office Visit [facility] Family Medicine [address] [address] Carlee Castillo DNP [address] [place] [address] Anxiety (Primary Dx); Mild depression (HCC-CMS); Essential (primary) hypertension; Mixed hyperlipidemia Social History Tobacco Use Types Packs/Day Years [...] 14:38 EST Sexual Orientation Not on file COVID-19 Exposure Response Date Recorded In the last 10 days, have yo u been in contact with someone who was confirmed or suspected to have Coronavirus/COVID-19? No / Unsure 05/06/2022 13:53 EDT documented as of this encounter Last Filed Vital Signs Vital Sign Reading Time Taken Comments Blood Pressure 129/82 05/06/2022 1402 EDT Pulse 86 05/06/2022 1356 EDT Temperature 36.7 ??C (98 ??F) 05/06/2022 1356 EDT Respiratory Rate 18 05/06/2022 1356 EDT Oxygen Saturation 99% 05/06/2022 1356 EDT Inhaled Oxygen Concentration - - Weight - - Height - - Body Mass Index - - documented in this encounter Progress Notes * Carlee Castillo NP - 05/06/2022 1400 EDT [facility] [place] Subjective: Chief Complaint(s): Mood Disorder (Follow up) JERRY Mckeon is here for follow-up of hypertension and hyperlipidemia. Medications: compliant with irbesartan 100mg/day and rosuvastatin 20mg/day Side effects: None Home BP monitoring: checks occasionally at home Diet: Healthy Exercise: Active with gardening Weight change: No change Last BMP: 12/11/2021 Follow up mood. He reports he is feeling good, less anxious and stressed. Continues counseling. Is taking sertraline 50mg/day. Behavioral Health Screen Summary Interpretation PHQ-2: 0 PHQ-9: 3 Minimal Depression JASMIN-2: 1 JASMIN-7: 1 Minimal Anxiety SASQ: More than once AUDIT-10: 4 Low-risk alcohol use. SSASQ: Never DAST-10: . I have reviewed patient's tobacco history: reports that he has quit smoking. He has never used smokeless tobacco. I have reviewed current problem list and current medications. Medications: Current Outpatient Medications on File Prior to Visit Medication Sig Dispense Refill ??? fluocinonide (LIDEX) 0.05 % cream 1 linda applied topically 3 times a day 30 g 1 ??? irbesartan (AVAPRO) 300 mg tablet Take 1 Tablet by mouth daily. 90 Tablet 4 ??? LORazepam (ATIVAN) 0.5 mg tablet Take 1 Tablet by mouth daily as needed for Anxiety. Daily Max:0.5 mg 14 Tablet 1 ??? rosuvastatin (CRESTOR) 20 mg tablet 1 tab(s) orally once a day (at bedtime) 90 Tablet 3 ??? sertraline (ZOLOFT) 50 mg tablet Take 1 Tablet by mouth daily. 90 Tablet 1 ??? zolpidem (AMBIEN) 10 mg tablet Take 1 Tablet by mouth at bedtime as needed for Sleep. Daily Max: 10 mg 30 Tablet 0 No current facility-administered medications on file prior to visit. Review of Systems Constitutional: Negative for fatigue and unexpected weight change. Eyes: Negative for visual disturbance. Cardiovascular: Negative for chest pain, palpitations and leg swelling. Psychiatric/Behavioral: Negative for dysphoric mood and sleep disturbance. The patient is not nervous/anxious. Objective: Examination: Vitals: BP 129/82 Pulse 86 Temp 36.7 ??C (98 ??F) Resp 18 SpO2 99% There is no height or weight on file to calculate BMI. Physical Exam Vitals reviewed. Constitutional: Appearance: Normal appearance. Cardiovascular: Heart sounds: Normal heart sounds. No murmur heard. Neurological: Mental Status: He is alert. Psychiatric: Attention and Perception: Attention and perception normal. Mood and Affect: Mood and affect normal. Speech: Speech normal. Behavior: Behavior normal. Thought Content: Thought content normal. Judgment: Judgment normal. Data reviewed with patient (past results): Reviewed and/or ordered active problem list, medication list, allergies, social history, health maintenance, notes from last encounter Assessment & Plan: Mike was seen today for mood disorder. Diagnoses and all orders for this visit: Anxiety Improvement in mood with reduced anxiety and depression as the stressors with his divorce and custody decrease. He will continue sertraline for the next few weeks and then taper off of this medication. We will send an update if his symptoms worsen. We will continue counseling and other self-care activities. Mild depression (HCC-CMS) (HCC) Same as above. Essential (primary) hypertension Blood pressure reviewed, at goal. Continue irbesartan 300 mg daily along with eating a low-salt healthy diet and regular exercise. Follow-up in approximately 6 months. Go for fasting blood work priorto this appointment. Return in about 7 months (around 12/06/2022) for HTN, mood, lipids after fasting labs. Speech recognition software was used to complete this progress note. Typographical errors may be present. documented in this encounter Plan of Treatment Not on file documented as of this encounter Results * (ABNORMAL) LIPID PROFILE (INCLUDES CHOLESTEROL, TRIGLYCERIDES, [...] 12:55 EST 12/15/2022 13:49 EST Carlee Castillo [facility] CHEMISTRY & BLOOD GAS ORDERABLES Final Result [facility] [address] [place] [address] * (ABNORMAL) COMPREHENSIVE METABOLIC PANEL (CMP) (12/15/2022 [...] CHEMISTRY & BLOOD GAS ORDERABLES Final Result [facility] [address] [place] [address] documented in this encounter Visit Diagnoses Diagnosis Anxiety- Primary Anxiety state, unspecified Mild depression Depressive disorder, not elsewhere classified Essential (primary) hypertension Unspecified essential hypertension Mixed hyperlipidemia documented in this encounter Care Teams Electric Deicer Inspector Relationship Specialty Start Date End Date Carlee Castillo DNP [address] [place] [phone] PCP - General 10/25/19 07/20/23 documented as of this encounter
--- OUTSIDE RECORDS SUMMARY | 2024-11-27 15:42 | XMS_ITS | Encounter Summary ---
Author Organization [facility] Address [address] [place] [address] Care Team Providers Care Activated Sludge Attendant Name Role Phone Carlee Castillo DNP Primary Care Provider [phone] Reason for Visit * Reason Onset Date Comments Medications Refill 01/18/2023 Encounter Details Date Type Department Care Team (Late st Contact Info) Description 01/18/2023 Refill [facility] Integrative Family Medicine [address] [address] Carlee Castillo DNP [address] [place] [address] Medications Refill Social History Tobacco Use Types Packs/Day Years [...] place to sleep or slept in a mcc (including now)? No 12/02/2021 Interpersonal Safety Answer [...] suspected to have Coronavirus/COVID-19? No / Unsure 01/05/2023 14:18 EST documented as of this encounter Ordered Prescriptions Prescription Sig Dispense Quantity Refills Last Filled Start Date End Date fluocinonide (LIDEX) 0.05 % creamIndications:E czema, unspecified type 1 linda applied topically 3 times a day 30 g 1 01/18/2023 documented in this encounter Miscellaneous Notes * Telephone Encounter - Deidra Tomas RN - 01/18/2023 1524 EST LIONEL - 01/05/23 NOV - 07/08/23 Rx(s) escribed to pharmacy. * Telephone Encounter - Deidra Tomas RN - 01/18/2023 1523 ESTFrom: Mike Stovall To: Office of Carlee Castillo NP Sent: 01/18/2023 11:54 EST Subject: Medication Renewal Request Refills have been requested for the following medications: fluocinonide (LIDEX) 0.05 % cream [Carlee Castillo] Patient Comment: Refill order 11/11/22 Preferred pharmacy: [id number] documented in this encounter Plan of Treatment Not on file documented as of this encounter Visit Diagnoses Diagnosis Eczema, unspecified type- Primary documented in this encounter Discontinued Medications Medication Sig Discontinue Reason Start Date End Da te fluocinonide (LIDEX) 0.05 % creamIndications:Eczema , unspecified type 1 linda applied topically 3 times a day Reorder 11/11/2021 01/18/2023 documented as of this encounter Care Teams Activated Sludge Attendant Relationship Specialty Start Date End Date Carlee Castillo DNP [address] [place] [id number] PCP - General 10/25/19 07/20/23 documented as of this encounter
--- OUTSIDE RECORDS SUMMARY | 2024-11-27 15:42 | XMS_ITS | Encounter Summary ---
Author Organization [facility] Address [address] [place] [address] Care Team Providers Care [employer] Social Science Teacher Name Role Phone Carlee Castillo DNP Primary Care Provider [phone] Reason for Visit * Reason Comments Follow-up Hypertension Encounter Details Date Type Department Care Team (Latest Contact Info) Description 01/05/2023 14:30 EST Office Visit [facility] Integrative Family Medicine [address] [address] Carlee Castillo DNP [address] [place] [address] Essential (primary) hypertension (Primary Dx); Mixed hyperlipidemia Social History Tobacco Use Types [...] 14:18 EST documented as of this encounter Last Filed Vital Signs Vital Sign Reading Time Taken Comments Blood Pressure 146/94 01/05/2023 1419 EST Pulse 53 01/05/2023 1419 EST Temperature - - Respiratory Rate - - Oxygen Saturation 97% 01/05/2023 1419 EST Inhaled Oxygen Concentration - - Weight 91.4 kg (201 lb 6.4 oz) 01/05/[address] Height 172.7 cm (5' 8) 01/05/2023 1419 EST Body Mass Index 30.62 01/05/2023 1419 EST documented in this encounter Ordered Prescriptions Prescription Sig Dispense Quantity Refills Last Filled Start Date End Date amLODIPine (NORVASC) 2.5 mg tabletIndications: Essential (primary) hypertension Take 1 Tablet by mouth daily. 90 Tablet 2 01/05/2023 02/01/2023 documented in this encounter Progress Notes * Carlee Castillo, HARJIT - 01/05/2023 1430 EST [facility] [place] Subjective: Chief Complaint(s): Follow-up and Hypertension HPI Mike is here for follow-up of hypertension and hyperlipidemia. Medications: compliant with irbesartan 300mg/day. Side effects: None Home BP monitoring: Occasionally, 140's/ 80's-90's Diet: No change Exercise: Active, no formal exercise. Weight change:No change Sleep apnea: None Last BMP: 12/15/2022 Denies: chest pain, shortness of breath, edema, dizziness, syncope. I have reviewed patient's tobacco history: reports [...] Tablet by mouth daily. 90 Tablet 3 ??? LORazepam (ATIVAN) 0.5 mg tablet Take 1 Tablet by mouth daily as needed for Anxiety. Daily Max:0.5 mg 14 Tablet 1 ??? polyethylene glycol 3350 (MIRALAX) 17 gram packet Take 17 g by mouth daily. ??? rosuvastatin (CRESTOR) 20 mg tablet 1 tab(s) orally once a day (at bedtime) 90 Tablet 3 No current facility-administered medications on file prior to visit. Review of Systems Respiratory: Negative for apnea. Cardiovascular: Negative for chest pain, palpitations and leg swelling. Neurological: Negative for dizziness and light-headedness. Objective: Examination: Vitals: BP (!) 146/94 (BP Cuff Location: Right arm, BP Patient Position: Sitting, BP Cuff Sizes: Adult, regular) Pulse 53 Ht 172.7 cm (68) Wt 91.4 kg (201 lb 6.4 oz) SpO2 97% BMI 30.62 kg/m?? Bodymass index is 30.62 kg/m??. Physical Exam Vitals reviewed. Constitutional: Appearance: Normal appearance. Eyes: Conjunctiva/sclera: Conjunctivae normal. Cardiovascular: Rate and Rhythm: Bradycardia present. Heart sounds: Normal heart sounds. Pulmonary: Effort: Pulmonary effort is normal. Breath sounds: Normal breath sounds. Skin: General: Skin is warm and dry. Neurological: Mental Status: He is alert. Psychiatric: Mood and Affect: Mood normal. Behavior: Behavior normal. Data reviewed with patient (past results): Reviewed and/or ordered active problem list, medication list, allergies, family history, social history, health maintenance, lab results Recent Results (from the past 672 hour(s)) COMPREHENSIVE METABOLIC PANEL (CMP) Collection Time: 12/15/22 12:55 Result Value Ref Range Sodium 142 136 - 145 mmol/L Potassium 4.5 3.5 - 5.0 mmol/L Chloride 103 96 - 110 mmol/L CO2 Total 27 22 - 32 mmol/L Glucose 101 (H) 70 - 100 mg/dL BUN 12 10 - 26 mg/dL Creatinine 0.79 0.66 - 1.25 mg/dL eGFR 112 >60 mL/min/1.73m2 Total Protein 7.9 6.3 - 8.2 g/dL Albumin 5.0 (H) 3.4 - 4.9 g/dL Alkaline Phosphatase 43 38 - 126 U/L AST 28 15 - 46 U/L ALT 32 <50 U/L Bilirubin, Total 0.5 <1.4 mg/dL Calcium 9.3 8.5 - 10.5 mg/dL Albumin/Globulin Ratio 1.7 1.0 - 2.5 Anion Gap 12 5 - 14 LIPID PROFILE (INCLUDES CHOLESTEROL, TRIGLYCERIDES, HDL, LDL) Collection Time: 12/15/22 12:55 Result Value Ref Range Cholesterol 167 <200 mg/dL HDL 54 >=40 mg/dL LDL, Calculated 67 <160 mg/dL Triglyceride 232 (H) <=150 mg/dL Chol/HDL Ratio 3.1 See Note Non HDL Cholesterol 113 <160 mg/dL CHLAMYDIA/N. GONORRHOEAE AMPLIFIED RNA Collection Time: 12/15/22 12:55 Specimen: Urine, Initial Void Result Value Ref Range Gonococcus Result Negative Negative Chlamydia Result Negative Negative Narrative ??? Xpert CT/NG Assay performance has not been evaluated in patients less than 14 years of age. HIV 1/2 ANTIGEN AND ANTIBODY, 4TH GENERATION Collection Time: 12/15/22 12:55 Result Value Ref Range HIV 1 and 2 Antibody/p24 Antigen, 4th Generation Negative Negative HEPATITIS C AB W REFLEX TO HCV RNA BY PCR Collection Time: 12/15/22 12:55 Result Value Ref Range Hep C Antibody Negative Negative SYPHILIS RPR SCREEN W/REFLEX Collection Time: 12/15/22 12:55 Result Value Ref Range Rapid Plasma Reagin Screen (RPR) Nonreactive Nonreactive Nonfasting labs The 10-year ASCVD risk score (Soni ADKINS, et al., 2019) is: 2% Values used to calculate the score: Age: 47 years Sex: Male Is Non- : No Diabetic: No Tobacco smoker: No Systolic Blood Pressure: 146 mmHg Is BP treated: Yes HDL Cholesterol: 54 mg/dL Total Cholesterol: 167 mg/dL Assessment & Plan: Mike was seen today for follow-up and hypertension. Diagnoses and all orders for this visit: Essential (primary) hypertension Blood pressure reviewed, above goal which has been consistent with his readings at home and in other medical offices. I recommend continuing irbesartan 300 mg daily and start amlodipine 2.5 mg daily.Monitor your blood pressure at home, if your readings are consistently greater than 140/90 then increase amlodipine to 5 mg daily. We will continue to titrate to 10 mg if needed. Continue a low-salt, heart healthy diet. Try to incorporate some aerobic exercise at least 30 minutes most days of the week. Follow-up in 6 months and as needed. - amLODIPine (NORVASC) 2.5 mg tablet; Take 1 Tablet by mouth daily. Mixed hyperlipidemia Nonfasting lipid panel reviewed. Continue rosuvastatin 20 mg daily. Return in about 6 months (around 07/05/2023) for HTN. Speech recognition software was used to complete this progress note. Typographical errors may be present. documented in this encounter Plan of Treatment Not on file documented as of this encounter Visit Diagnoses Diagnosis Essential (primary) hypertension- Primary Unspecified essential hypertension Mixed hyperlipidemia documented in this encounter Care Teams [employer] Social Science Teacher Relationship Specialty Start Date End Date Carlee Castlilo DNP [address] [place] [id number] PCP - General 10/25/19 07/20/23 documented as of this encounter
--- OUTSIDE RECORDS SUMMARY | 2024-11-27 15:42 | XMS_ITS | Encounter Summary ---
Author Organization [facility] Address [address] [place] [address] Care Team Providers Care Adzing And Boring Machine Helper Name Role Phone None, Provider Primary Care Provider Unavailabl e Reason for Visit * Reason Comments Hypertension Arrives with elevate d BP, mild headache. Was using the restroom when he noticed his nose was bleeding. BP 200 systolic. Hx of htn, on medication but has been out for several weeks while trying to change pharmacies. Encounter Details Date Type Department Care Team (Late st Contact Info) Description 10/26/2024 7:11 EST - 10/26/2024 7:37 EST Emergency [facility] Emergency Department [address] [place] [address] Raymundo Leslie MD [address] [place] [address] Hypertension, unspecified type (Primary Dx) Discharge Disposition: Home or Self Care Social History Tobacco Use Types Packs/Day Years [...] place to sleep or slept in a correction (including now)? No 12/02/2021 Interpersonal Safety Answer Date Record ed How often does anyone, incldejan adenike family, hit, punch or physically hurt you? Never 12/02/2021 How often does anyone, incldejan adenike family, insult, scream, curse or threaten to hurt you? Never 12/02/2021 Sex and Gender Information Value Date Recorded Sex Assigned at Male 10/24/2024 7:41 EST Legal Sex Male 18:41 EST Gender Identity Male 01/03/2020 14:38 EST Sexual Orientation Not on file documented as of this encounter Last Filed [...] Body Mass Index 31.32 10/26/2024 0721 EST documented in this encounter Discharge Instructions * Discharge Instructions* Raymundo Leslie MD - 10/26/2024 7:23 EST You were seen in the ED for high blood pressure. Resume your usual dose of irbesartan 300 mg daily. Consider checking your blood pressure at home a few times per week. It is best to take your blood pressure about an hour after taking your blood pressure medication when you have been sitting with your legs uncrossed for least 10 to 15 minutes. Please follow-up with your primary care provider. Return to the ED for any worsening symptoms. documented in this encounter Medications at Time of Discharge fluocinonide (LIDEX) 0.05 % creamIndications:Ecz kaden, unspecified type 1 linda applied topically 3 times a day 30 g 1 01/18/2023 irbesartan (AVAPRO) 300 mg tablet Take 1 Tablet by mouth daily. 30 Tablet 10/26/2024 irbesartan (AVAPRO) 300 mg tabletIndications:Es sential (primary) hypertension Take 1 Tablet by mouth daily. 90 Tablet 3 12/07/2022 LORazepam (ATIVAN) 0.5 mg tabletIndications:Mo derate anxiety,Psychophysio logical insomnia Take 1 Tablet by mouth daily as needed for Anxiety. Daily Max: 0.5 mg 14 Tablet 1 02/13/2022 polyethylene glycol 3350 (MIRALAX) 17 gram packet Take 17 g by mouth daily. rosuvastatin (CRESTOR) 20 mg tabletIndications:Mi xed hyperlipidemia 1 tab(s) orally once a day (at bedtime) 90 Tablet 3 02/01/2023 documented as of this encounter Ordered Prescriptions Prescription Sig Dispense Quantity Refills Last Filled Start Date End Date irbesartan (AVAPRO) 300 mg tablet Take 1 Tablet by mouth daily. 30 Tablet 10/26/2024 documented in this encounter Discharge Disposition Disposition Code Departure Means Destination Comment s Home or Self Assisted documented in this encounter ED Notes * Raymundo Leslie MD - 10/26/2024 0707 EST Emergency Department Visit Medical Decision Making 49 y.o. patient with hypertension and hyperlipidemia who presents to the ED for hypertension in thesetting of being out of his irbesartan 300 mg daily for the last 2 weeks. Had a nosebleed and mild headache during his shift last night but currently asymptomatic without any evidence of endorgan damage. Blood pressure in the ED is 221/118. He was given his usual dose of irbesartan 300 mg and I wrote a prescription for a 30-day supply. I recommended he take his blood pressure a few times per weekat home and follow-up with his PCP. Medical Decision Making Final diagnoses: Hypertension, unspecified type Disposition: Discharged Chief complaint: Hypertension HPI Mike Stovall is a 49 y.o. patient with hypertension and hyperlipidemia who presents to the ED for hypertension. 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 A colleague took his blood pressure and it was 200/110. He takes irbesartan 300 mg daily for blood pressure but has been out of his medication for about 2 weeks because he is changing pharmacies and his PCP is at [facility]. Had a slight headache last night as well that has resolved. Nosebleed resolved. Denies chest pain, severe headache, severe abdominal pain, syncope. History was provided by: Patient Patient's pertinent PMH, FH, SH were reviewed and edited as necessary. Nursing notes reviewed. A medical screening exam was performed. Physical Exam BP (!) 221/118 (BP Cuff Location: Left arm, BP Patient Position: Sitting) Pulse 50 Temp 36.7 ??C (98 ??F) (Oral) Resp 16 Ht 172.7 cm (68) Wt 93 kg (205 lb) SpO2 98% BMI 31.17 kg/m?? Physical Exam Vitals and nursing note reviewed. Constitutional: General: He is not in acute distress. Appearance: Normal appearance. HENT: Head: Normocephalic and atraumatic. Right Ear: External ear normal. Left Ear: External ear normal. Nose: Nose normal. Mouth/Throat: Mouth: Mucous membranes are moist. Eyes: Extraocular Movements: Extraocular movements intact. Conjunctiva/sclera: Conjunctivae normal. Pupils: Pupils are equal, round, and reactive to light. Cardiovascular: Rate and Rhythm: Normal rate and regular rhythm. Heart sounds: Normal heart sounds. Pulmonary: Effort: Pulmonary effort is normal. Breath sounds: Normal breath sounds. Musculoskeletal: General: No swelling or deformity. Normal range of motion. Cervical back: Normal range of motion and neck supple. Skin: General: Skin is warm and dry. Neurological: General: No focal deficit present. Mental Status: He is alert and oriented to person, place, and time. Psychiatric: Mood and Affect: Mood normal. Behavior: Behavior normal. Procedures Procedures documented in this encounter Plan of Treatment Not on file documented as of this encounter Visit Diagnoses Diagnosis Hypertension, unspecified type- Primary documented in this encounter Administered Medications Inactive Administered Medications - up to 3 most recent administrations Medication Order MAR Action Action Date Dose Rate Site irbesartan (AVAPRO) tablet 300 mg 300 mg, oral, NOW X1, 1 dose, On Hellen 10/26/24 at 0745, Routine Given 10/26/2024 7:35 EST 300 mg documented in this encounter Discontinued Medications Medication Sig Discontinue Reason Start Date End Da te amLODIPine (NORVASC) 10 mg tabletIndications:Essenti al (primary) hypertension Take 1 Tablet by mouth daily. 02/01/2023 10/26/2024 documented as of this encounter Active and Recently Administered Medications Times are shown in EST. Scheduled Medication Order 10/24/2024 10/25/2024 10/26/2024 irbesartan (AVAPRO) tablet 300 mg (COMPLETED) 300 mg, oral, NOW X1, 1 dose, On Hellen 10/26/24 at 0745, Routine 0735 (Given - Provid er: Guanako aTpia RN) documented in this encounter Orders Medications Ordered That [place] ht Not Have Been Administered Count Last Ordered Date First Ordered Date irbesartan (AVAPRO) tablet 300 mg 1 024 documented in this encounter Care Teams Adzing And Boring Machine Helper Relationship Specialty Start Date End Date None, Provider PCP - General 10/24/24 documented as of this encounter
--- OUTSIDE RECORDS SUMMARY | 2024-11-27 15:42 | XMS_ITS | Encounter Summary ---
Author Organization [facility] Address [address] [place] [address] Care Team Providers Care Senior Procurement Specialist Name Role Phone Carlee Castillo DNP Primary Care Provider [phone] Reason for Visit * Reason Onset Date Comments Appointment Related 07/22/2022 Encounter Details Date Type Department Care Team (Late st Contact Info) Description 07/22/[address] [facility] [address] [place] [address] Carlee Castillo DNP [address] [place] [phone] Appointment Related Social History Tobacco Use Types [...] encounter Miscellaneous Notes * Telephone Encounter - Miesha Covarrubias - 07/22/2022 1521 EDT Patient needs to reschedule his new patient appointment on 07/31/2022 as something has come up. Please call at [phone] documented in this encounter Plan of Treatment Not on file documented as of this encounter Visit Diagnoses Not on filedocumented in this encounter Care Teams Senior Procurement Specialist Relationship Specialty Start Date End Date Carlee Castillo DNP [address] [place] [address] PCP - General 10/25/19 07/20/23 documented as of this encounter
--- OUTSIDE RECORDS SUMMARY | 2024-11-27 15:42 | XMS_ITS | Encounter Summary ---
Author Organization [facility] Address [address] [place] [address] Care Team Providers Care Prepleater Name Role Phone Carlee Castillo DNP Primary Care Provider [phone] Reason for Visit * Laboratory Services (Routine) - New Request Specialty Diagnoses / Procedures [facility] Referred To Contact Diagnoses Essential (primary) hypertension Procedures COMPREHENSIVE METABOLIC PANEL (CMP) Carlee Castillo DNP Phone: tel: fax: Referral ID Status Reason Start Date Expiration Date V isits Requested Visits Authorized [id number] New Request 06/03/2021 1 1 Encounter Details Date Type Department Care Team (Late st Contact Info) Description 12/11/2021 11:30 EST Phlebotomy Only [facility] - Outpatient Phlebotomy Drawing [address] [place] [address] Lab, [facility] [place] Op Phlebotomy No immunization history record; Essential (primary) hypertension; Mixed hyperlipidemia; 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 No 12/02/2021 Interpersonal Safety Answer [...] Exposure Response Date Recorded In the last month, have you been in contact with someone who was confirmed or suspected to have Coronavirus / COVID-19? No / Unsure 12/02/2021 7:50 EST documented as of this encounter Plan of Treatment Not on file documented as of this encounter Procedures Procedure Name Priority Date/Time Associated Diagnosis Comments RUBELLA IGG ANTIBODY Routine 12/11/2021 11:34 EST No immunization history record HEPATITIS B SURFACE ANTIBODY Routine 12/11/2021 11:34 EST Lack of immunity to hepatitis B virus demonstrated by serologic test LIPID PROFILE (INCLUDES CHOLESTEROL, TRIGLYCERIDES, HDL, LDL) Routine 12/11/2021 11:34 EST Mixed hyperlipidemia COMPREHENSIVE METABOLIC PANEL (CMP) Routine 12/11/2021 11:34 EST Essential (primary) hypertension documented in this encounter Results * HEPATITIS B SURFACE ANTIBODY (12/11/2021 11:34 EST) Hep B Surface Ab, Quantitative 196.0 See Note mIU/mL 12/11/2021 14:[address] [facility] Comment: Clinical Interpretation of Immune Status: Anti-HBs detected at >10 mIU/mL. Patient is considered to be immune to infection with HBV. It has not been determined what the clinical significance is for values greater than or = 12 mIU/mL, other than the individual is considered to be immune to HBV infection. The results of this assay can be falsely lowered due to the consumption of Biotin. Reference Range for Hep B Surface Ab, Quant: Positive: ?>= 12.00 mIU/mL Negative: ?< 5.00 mIU/mL Indeterminate: ??>= 5.00 mIU/mL and < 12.00 mIU/mL Blood VENOUS BLOOD / Unknown Venipuncture / Unknown 12/11/2021 11:34 EST 12/11/2021 12:41 EST us Carlee Castillo DNP CHEMISTRY & BLOOD GAS ORDERABLES Final Result [facility] [address] [place] [address] * LIPID PROFILE (INCLUDES CHOLESTEROL, TRIGLYCERIDES, HDL, LDL) (12/11/2021 11:34 EST) Cholesterol 198 See Note mg/dL 12/11/2021 13:11 [facility] Comment: Acceptable: ?<200 mg/dL Borderline High: 200-239 mg/dL High: ?> or = 240 mg/dL HDL 52 See Note mg/dL 12/11/2021 13:11 [facility] Comment: Low: ? <40 mg/dL Normal: ??40-60 mg/dL High: ?>60 mg/dL LDL, Calculated 88 See Note mg/dL 12/11/2021 13:11 [facility] Comment: Optimal: ? <100 mg/dL Near Optimal: ?100-129 mg/dL Borderline High: 130-159 mg/dL High: ?160-189 mg/dL Very High: ? > or = 190 mg/dL Triglyceride 292 See Note mg/dL 12/11/2021 13:11 [facility] Comment: Normal: ? <150 mg/dL Borderline High: ??150 - 199 mg/dL High: ? 200 - 499 mg/dL Very High: ?> or = 500 mg/dL Chol/HDL Ratio 3.8 See Note 12/11/2021 13:11 [facility] Comment: NOTE: Desirable Ratio = <4.1 Patient At Risk Ratio = >5.0(Males) ?>6.0(Females) Non HDL Cholesterol 146 See Note mg/dL 12/11/2021 13:11 [facility] Comment: Desirable: ?<130 mg/dL Borderline High: ??130-159 mg/dL High: ? 160-189 mg/dL Very High: ?> or = 190 mg/dL Blood VENOUS BLOOD / Unknown Venipuncture / Unknown 12/11/2021 11:34 EST 12/11/2021 12:41 EST Carlee Castillo DNP CHEMISTRY & BLOOD GAS ORDERABLES Final Result [facility] [address] [place] [address] * (ABNORMAL) COMPREHENSIVE METABOLIC PANEL (CMP) (12/11/2021 11:34 EST) Sodium 139 136 - 145 mmol/L 12/11/2021 13:11 [facility] Potassium 4.8 3.5 - 5.0 mmol/L 12/11/2021 13:11 [facility] Chloride 100 96 - 110 mmol/L 12/11/2021 13:11 [facility] CO2 Total 24 22 - 32 mmol/L 12/11/2021 13:11 [facility] Glucose 116(H) 70 - 100 mg/dL 12/11/2021 13:11 [facility] BUN 12 10 - 26 mg/dL 12/11/2021 13:11 [facility] Creatinine 0.95 0.66 - 1.25 mg/dL 12/11/2021 13:11 [facility] eGFR 97 >60 mL/min/1.7 3m2 12/11/2021 13:11 [facility] Total Protein 8.4(H) 6.3 - 8.2 g/dL 12/11/2021 13:11 [facility] Albumin 5.2(H) 3.4 - 4.9 g/dL 12/11/2021 13:11 [facility] Alkaline Phosphatase 42 38 - 126 U/L 12/11/2021 13:11 [facility] AST 32 15 - 46 U/L 12/11/2021 13:11 [facility] ALT 31 <50 U/L 12/11/2021 13:11 [facility] Bilirubin, Total 0.7 <1.4 mg/dL 12/11/19 13:11 [facility] Calcium 9.9 8.5 - 10.5 mg/dL 12/11/2021 13:11 [facility] Albumin/Globulin Ratio 1.6 1.0 - 2.5 12/11/2021 13:11 [facility] Anion Gap 15 8 - 16 12/11/2021 13:11 [facility] Blood VENOUS BLOOD / Unknown Venipuncture / Unknown 12/11/2021 11:34 EST 12/11/2021 12:[address] [facility] CHEMISTRY & BLOOD GAS ORDERABLES Final Result Performing Organization Address City/[facility]/ZIP Co de Phone Number [facility] [address] [place] [address] * RUBELLA IGG ANTIBODY (12/11/2021 11:34 EST) Rubella IgG Ab Positive See Note 12/11/2021 14:48 [facility] Comment:The presence of Rube lla IgG suggests immunity against Rubella. Blood VENOUS BLOOD / Unknown Venipuncture / Unknown 12/11/2021 11:34 EST 12/11/2021 12:[address] [facility] CHEMISTRY & BLOOD GAS ORDERABLES Final Result Performing Organization Address City/[facility]/ZIP Co de Phone Number [facility] [address] [place] [address] documented in this encounter Visit Diagnoses Diagnosis No immunization history record Essential (primary) hypertension Unspecified essential hypertension Mixed hyperlipidemia Lack of immunity to hepatitis B virus demonstrated by serologic test Has received third dose of hepatitis B vaccine documented in this encounter Care Teams Prepleater Relationship Specialty Start Date End Date Carlee Castillo DNP [address] [place] [address] PCP - General 10/25/19 07/20/23 documented as of this encounter
--- OUTSIDE RECORDS SUMMARY | 2024-11-27 15:42 | XMS_ITS | Encounter Summary ---
Author Organization [facility] Address [address] [place] [address] Care Team Providers Care Meat Soaker Name Role Phone Carlee Castillo DNP Primary Care Provider [phone] Reason for Visit * Reason Onset Date Comments Medications Refill 12/06/2022 Encounter Details Date Type Department Care Team (Late st Contact Info) Description 12/06/2022 Refill [facility] Family Medicine [address] [address] Carlee Castillo DNP [address] [place] [address] Medications Refill Social History Tobacco Use [...] place to sleep or slept in a usp (including now)? No 12/02/2021 Interpersonal Safety Answer [...] suspected to have Coronavirus/COVID-19? No / Unsure 11/06/2022 9:37 EST documented as of this encounter Ordered Prescriptions Prescription Sig Dispense Quantity Refills Last Filled Start Date End Date irbesartan (AVAPRO) 300 mg tabletIndications:E ssential (primary) hypertension Take 1 Tablet by mouth daily. 90 Tablet 3 12/07/2022 documented in this encounter Miscellaneous Notes * Telephone Encounter - Deidra Tomas RN - 12/07/2022 1416 EST [facility]ION[facility] - 05/06/22 NOV - none last BMP - 12/11/21 Rx(s) escribed to pharmacy. * Telephone Encounter - Deidra Tomas RN - 12/07/2022 1416 ESTFrom: Mike Stovall To: Office of Carlee Castillo NP Sent: 12/06/2022 19:18 EST Subject: Medication Renewal Request Refills have been requested for the following medications: irbesartan (AVAPRO) 300 mg tablet [Carlee Castillo] Preferred pharmacy: [id number] documented in this encounter Plan of Treatment Not on file documented as of this encounter Visit Diagnoses Diagnosis Essential (primary) hypertension- Primary Unspecified essential hypertension documented in this encounter Discontinued Medications Medication Sig Discontinue Reason Start Date End Da te irbesartan (AVAPRO) 300 mg tabletIndications:Essenti al (primary) hypertension Take 1 Tablet by mouth daily. Reorder 02/13/2022 12/06/2022 documented as of this encounter Care Teams Meat Soaker Relationship Specialty Start Date End Date Carlee Castillo DNP [address] [place] [address] PCP - General 10/25/19 07/20/23 documented as of this encounter
--- OUTSIDE RECORDS SUMMARY | 2024-11-27 15:42 | XMS_ITS | Encounter Summary ---
Author Organization [facility] Address [address] [place] [address] Care Team Providers Care Child Therapist Name Role Phone None, Provider Primary Care Provider Unavailabl e Encounter Details Date Type Department Care Team (Latest Contact Info) Description 10/26/2024 Travel Social History Tobacco Use Types Packs/Day Years [...] place to sleep or slept in a retirement (including now)? No 12/02/2021 Interpersonal Safety Answer [...] on filedocumented in this encounter Care Teams Child Therapist Relationship Specialty Start Date End Date None, Provider PCP - General 10/24/24 documented as of this encounter
--- OUTSIDE RECORDS SUMMARY | 2024-11-27 15:42 | XMS_ITS | Encounter Summary ---
Author Organization [facility] Address [address] [place] [address] Care Team Providers Care Fur Dry Cleaner Name Role Phone Carlee Castillo DNP Primary Care Provider [phone] Reason for Visit * Reason Onset Date Comments Insomnia 02/11/2022 Encounter Details Date Type Department Care Team (Late st Contact Info) Description 02/11/2022 Telephone [facility] Family Medicine [address] [address] Carlee Castillo DNP [address] [place] [address] Insomnia Social History Tobacco Use Types Packs/Day Years [...] place to sleep or slept in a alf (including now)? No 12/02/2021 Interpersonal Safety Answer [...] encounter Miscellaneous Notes * Telephone Encounter - Lee Colón - 02/11/2022 1238 EDT Patient booked with [facility] 02/13. * Telephone Encounter - Aleyda Bryant - 02/11/2022 1217 EDT Left vm on Jeffrey's phone * Telephone Encounter - Carlee Castillo NP - 02/11/2022 1206 EDT Yes, appointment zoom or clinic. Im out of the office next week so he could see another clinician if he is comfortable with this. He has a therapist in place already. Carlee Castillo NP * Telephone Encounter - Dusty Rodríguez RN - 02/11/2022 1155 EDT I assume that this would require a visit, but checking with you first before scheduling. * Telephone Encounter - Lee Colón - 02/11/2022 1129 EDT Patient is going through a difficult divorce and is having a great deal of trouble sleeping. Patient is wondering if something can be prescribed to help him sleep. Patient can be reached via brother's cell phone as listed on the TE. documented in this encounter Plan of Treatment Not on file documented as of this encounter Visit Diagnoses Not on filedocumented in this encounter Care Teams Fur Dry Cleaner Relationship Specialty Start Date End Date Carlee Castillo DNP [address] [place] [address] PCP - General 10/25/19 07/20/23 documented as of this encounter
--- OUTSIDE RECORDS SUMMARY | 2024-11-27 15:42 | XMS_ITS | Encounter Summary ---
Author Organization [facility] Address [address] [place] [address] Care Team Providers Care Arcade Technician Name Role Phone Carlee Castillo DNP Primary Care Provider [phone] Reason for Visit * Reason Comments PPD Reading Encounter Details Date Type Department Care Team (Late st Contact Info) Description 03/13/2022 16:00 EDT Nurse Only [facility] Integrative Family Medicine [address] [address] Nurse, [facility] Screening-pulmonary TB (Primary Dx) Social History Tobacco Use Types Packs/Day Years [...] PHQ-2 Answer Date Recorded PHQ-2 SUBTOTAL 2 03/09/2022 Hunger Vital Sign Answer Date Recorded Within [...] suspected to have Coronavirus/COVID-19? No / Unsure 03/13/2022 15:46 EDT documented as of this encounter Progress Notes * Samantha Fenton, RN - 03/13/2022 1600 EDT Patient presents to the office for a PPD read. Procedure Note: PPD Negative Patient tolerates procedure well and leaves the suite without complaint. Patient instructed to contact the office with any further questions or concerns. I was supervised by Virginie Ramirez MD who was present and immediately available in the office suite. SAMANTHA FENTON RN 03/13/2022 15:55 documented in this encounter Miscellaneous Notes * Addendum Note - Samantha Fenton RN - 03/13/2022 1600 EDTAddended by: SAMANTHA FENTON on: 03/13/2022 15:57 Modules accepted: Level of Service documented in this encounter Plan of Treatment Not on file documented as of this encounter Visit Diagnoses Diagnosis Screening-pulmonary TB- Primary Screening examination for pulmonary tuberculosis documented in this encounter Care Teams Arcade Technician Relationship Specialty Start Date End Date Carlee Castillo DNP [address] [place] [address] PCP - General 10/25/19 07/20/23 documented as of this encounter
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
--- OUTSIDE RECORDS SUMMARY | 2024-11-27 15:42 | XMS_ITS | Encounter Summary ---
Author Organization [facility] Address [address] [place] [address] Care Team Providers Care Lunchroom Aide Name Role Phone Carlee Castillo DNP Primary Care Provider [phone] Encounter Details Date Type Department Care Team (Latest Contact Info) Description 03/11/2022 Travel Social History Tobacco Use Types Packs/Day [...] place to sleep or slept in a residential (including now)? No 12/02/2021 Interpersonal Safety Answer [...] suspected to have Coronavirus/COVID-19? No / Unsure 03/11/2022 15:57 EDT documented as of this encounter Plan of Treatment Not on file documented as of this encounter Visit Diagnoses Not on filedocumented in this encounter Care Teams Lunchroom Aide Relationship Specialty Start Date End Date Carlee Castillo DNP [address] [place] [id number] PCP - General 10/25/19 07/20/23 documented as of this encounter
--- OUTSIDE RECORDS SUMMARY | 2024-11-27 15:42 | XMS_ITS | Encounter Summary ---
Author Organization [facility] Address [address] [place] [address] Care Team Providers Care Front Office Manager Name Role Phone None, Provider Primary Care Provider Unavailabl e Encounter Details Date Type Department Care Team (Late st Contact Info) Description 08/22/2024 Orders Only [facility] - [facility] [place] [place] [facility] [address] [place] [address] Keeley Boyd RN Immunity status testing (Primary Dx) Social History Tobacco Use Types [...] documented as of this encounter Results * HEPATITIS B SURFACE ANTIBODY (10/24/2024 7:47 EST) Hep B Surface Ab, Quantitative >1,000.0 See Note mIU/mL 10/24/2024 12:28 EST [facility] Comment: Clinical Interpretation of [...] ORDERABL ES Final Result Performing Organization Address City/[facility]/ZIP Co de Phone Number [facility] [address] [place] [address] * VARICELLA IGG ANTIBODY (10/24/2024 7:47 EST) Varicella IgG Ab Positive See Note 10/24/2024 20:49 EST [facility] Blood VENOUS BLOOD / Unknown Venipuncture / Unknown 10/24/2024 7:47 EST 10/24/2024 8:39 EST us Alondra Head MD IMMUNOLOGY AND SEROLOGY ORDERA BLES Final Result Performing Organization Address City/[facility]/ZIP Co de Phone Number [facility] [address] [place] [phone] documented in this encounter Visit Diagnoses Diagnosis Immunity status testing- Primary Antibody response examination documented in this encounter Care Teams Front Office Manager Relationship Specialty Start Date End Date None, Provider PCP - General 10/24/24 documented as of this encounter
--- OUTSIDE RECORDS SUMMARY | 2024-11-27 15:42 | XMS_ITS | Encounter Summary ---
Author Organization [facility] Address [address] [place] [address] Care Team Providers Care Roller Print Tender Name Role Phone Carlee Castillo DNP Primary Care Provider [phone] Reason for Visit * Reason Onset Date Comments Medications Refill 11/10/2021 Encounter Details Date Type Department Care Team (Late st Contact Info) Description 11/10/2021 Telephone [facility] [address] [address] Carlee Castillo DNP [address] [place] [address] Medications Refill Social History Tobacco Use [...] by your partner or ex-partner? No 07/08/2020 PHQ-2 Answer Date Recorded PHQ-2 SUBTOTAL 2 06/26/2021 Interpersonal Safety Answer Date Record ed Physically Hurt Never 06/30/2020 Verbally Threaten Not on file 06/30/2020 Sex and Gender Information Value Date Recorded Sex Assigned at Male 10/24/2024 7:41 EST Legal Sex Male 18:41 EST Gender Identity Male 01/03/2020 14:38 EST Sexual Orientation Not on file documented as of this encounter Ordered Prescriptions Prescription Sig Dispense Quantity Refills Last Filled Start Date End Date fluocinonide (LIDEX) 0.05 % creamIndications:E czema, unspecified type 1 linda applied topically 3 times a day 30 g 1 11/11/2021 3 documented in this encounter Miscellaneous Notes * Telephone Encounter - Deidra Tomas, RN - 11/11/2021 1216 EST [facility] - 06/26/21 NOV - 12/02/21 Rx(s) escribed to pharmacy. * Telephone Encounter - Edith Broussard - 11/10/2021 1501 EST Pt calling to request a refill on : fluocinonide (LIDEX) 0.05 % cream [facility] pharmacy documented in this encounter Plan of Treatment Not on file documented as of this encounter Visit Diagnoses Diagnosis Eczema, unspecified type- Primary documented in this encounter Discontinued Medications Medication Sig Discontinue Reason Start Date End Da te fluocinonide (LIDEX) 0.05 % creamIndications:Eczema , unspecified type 1 linda applied topically 3 times a day Reorder 11/18/2020 11/11/2021 documented as of this encounter Care Teams Roller Print Tender Relationship Specialty Start Date End Date Carlee Catsillo DNP [address] [place] [address] PCP - General 10/25/19 07/20/23 documented as of this encounter
--- OUTSIDE RECORDS SUMMARY | 2024-11-27 15:42 | XMS_ITS | Encounter Summary ---
Author Organization [facility] Address [address] [place] [address] Care Team Providers Care Marketing Operations Consultant Name Role Phone Carlee Castillo DNP Primary Care Provider [phone] Encounter Details Date Type Department Care Team (Late st Contact Info) Description 03/13/2022 Orders Only [address] [address] Samantha Hartley RN Social History Tobacco Use Types Packs/Day Years [...] place to sleep or slept in a [facility] (including now)? No 12/02/2021 Interpersonal Safety Answer [...] 15:46 EDT documented as of this encounter Plan of Treatment Not on file documented as of this encounter Visit Diagnoses Not on filedocumented in this encounter Care Teams Marketing Operations Consultant Relationship Specialty Start Date End Date Carlee Castillo DNP [address] [place] [address] PCP - General 10/25/19 07/20/23 documented as of this encounter
--- OUTSIDE RECORDS SUMMARY | 2024-11-27 15:42 | XMS_ITS | Encounter Summary ---
Author Organization [facility] Address [address] [place] [address] Care Team Providers Care Green Lumber Grader Name Role Phone Carlee Castillo DNP Primary Care Provider [phone] Reason for Visit * Reason Comments Hemorrhoids Had a hemorrhoidecto my 2012. They are back * Consult (See Order Priority) - Order Cancelled Specialty Diagnoses / Procedures [facility] To Contact General Surgery Diagnoses Hemorrhoids, unspecified hemorrhoid type Carlee Castillo DNP Phone: tel: fax: [facility] General Surgery [address] [place] [address] Phone: tel: fax: Referral ID Status Reason Start Date Expiration Date Visits Requested Visits Authorized [id number] Order Cancelled Specialty Services Required 06/04/2022 1 1 Encounter Details Date Type Department Care Team (Late st Contact Info) Description 11/06/2022 9:[address] [facility] General Surgery [address] [place] [address] Ted Aranda MD [address] [facility] [address] [place] [address] Internal hemorrhoids (Primary Dx) Social History Tobacco Use Types [...] place to sleep or slept in a senior living (including now)? No 12/02/2021 Interpersonal Safety Answer [...] 9:37 EST documented as of this encounter Last Filed Vital Signs Vital Sign Reading Time Taken Comments Blood Pressure 171/102 11/06/2022 0948 EST Pulse 64 11/06/2022 0948 EST Temperature - - Respiratory Rate - - Oxygen Saturation - - Inhaled Oxygen Concentration - - Weight 90.7 kg (200 lb) 11/06/2022947 EST Height 172.7 cm (5' 8) 11/06/2022947 EST Body Mass Index 30.41 11/06/2022947 EST documented in this encounter Patient Instructions * Patient Instructions* Ted Aranda MD - 11/06/2022 9:45 EST Images from the original note were not included. Division of General and Gastrointestinal Surgery [address] [place] [address] [address] [place], [place], [address] Office: [phone] General Instructions for Anorectal Care Diet Please maintain a high-fiber diet (bran cereals, whole grain breads, fruits, and vegetables). Goal fiber consumption is 30g daily. Fiber Supplementation Instructions Also, please take a fiber supplement (Metamucil, Citrucel, Benefiber or other equivalent) availableover the counter. Take 2 tablespoons daily in one glass of water or juice. Drink 8-10 glasses (8oz per glass) of water daily as well. It is ok to start with half the recommended dose for the first 3-5 days. Sitz Bath Instructions Use for perianal pain, discomfort, or itching. Please fill a bathtub with warm water (as hot as youcan safely tolerate). Soak in the tub for 15-20 minutes. Repeat 2-4 times daily, especially after bowel movements. Pat dry, do not wipe excessively. Bowel Hygiene Please minimize the amount of time you spend on the toilet and avoid straining. Both can make your symptoms worse. Hemorrhoid Banding (Ignore if you did not receive banding) If you had hemorrhoid banding today, you may expect some pressure in the anal area for roughly two days. - Do not take any pain medication which contains Aspirin. Ibuprofen (e.g Advil) and Acetaminophen (e.g. Tylenol) are fine to take. - In seven to ten days, the banded tissue and the rubber bands will pass, usually unnoticeably, with a bowel movement. Occasionally the healing area left behind will bleed a small amount. If the bleeding seems excessive, call the office. REASONS TO CALL THE OFFICE -Excessive bleeding (bleeding that does not stop with direct pressure or soaks through dressings and clothing) -If you pass a large amount of blood (1 cup or more) or feel faint from bleeding -If you are unable to urinate for more than 6 hours -If you have a persistent fever greater than 101 degrees -If you have nausea and vomiting that persists making it difficult for you to keep fluids down -Firm painful lump with green/yellow, smelly discharge Follow-up You will already have a follow-up appointment if needed. Please call the office if you need to change or cancel the appointment, or if you have any questions. documented in this encounter Progress Notes * Ted Aranda MD - 11/06/2022 0945 EST Colorectal Surgery Clinic Note Chief Complaint: Hemorrhoids HPI: Patient is a 47 y.o. male being seen at the request of Carlee Castillo NP for evaluation of recurrent hemorrhoids. Mike reports a several year history of prolapsing tissue associated with every bowel movement. He has to manually reduce his hemorrhoids every time. He did undergo a surgical hemorrhoidectomy in 2012 stage III. Is unclear how many of his hemorrhoidal columns were removed. He denies bleeding, mucusdrainage, or difficulty with hygiene. He takes 5 Metamucil capsules daily and denies constipation or straining with bowel movements. No abdominal pain, change in bowel habits, or weight loss. He is scheduled for colonoscopy in November. No first-degree relatives with colorectal cancer or IBD. Review of Symptoms: Reviewed in detail. He has no pertinent positives on extensive review of systems other than as described above. PMH PSH Past Medical History: Diagnosis Date ??? 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 Eczema ??? Facial basal cell cancer ??? Hemangioma 12/29/2019 ??? History of basal cell cancer 12/29/2019 ??? Hyperlipemia ??? Hypertension Past Surgical History: Procedure Laterality Date ??? SKIN CANCER EXCISION age 24, basal cell ??? VASECTOMY 2017 Social History Family history Social History Tobacco Use ??? Smoking status: Former ??? Smokeless tobacco: Never Substance Use Topics ??? Alcohol use: Not on file Family History Problem Relation Age of Onset ??? High Cholesterol Mother ??? Cancer Mother ??? Myelodysplastic syndrome Mother ??? Arthritis Father ??? Depression Sister ??? Anxiety Disorder Sister ??? Colon Cancer Maternal Grandfather Current Outpatient Medications Medication ??? fluocinonide (LIDEX) 0.05 % cream ??? irbesartan (AVAPRO) 300 mg tablet ??? LORazepam (ATIVAN) 0.5 mg tablet ??? polyethylene glycol 3350 (MIRALAX) 17 gram packet ??? rosuvastatin (CRESTOR) 20 mg tablet No current facility-administered medications for this visit. Allergies No Known Allergies Objective: Blood pressure (!) 171/102, pulse 64, height 172.7 cm (68), weight 90.7 kg (200 lb). Physical Exam: Gen: awake, alert, and oriented x 3, NAD Neck: soft, no thyromegaly, no carotid bruits, no cervical lymphadenopathy CV: regular rate Pulm: CTA bilat, no wheezes or rhonchi Abd: soft non-tender Ext: warm, well perfused,no edema Anorectal: External: Normal perianal skin, no fissures or enlarged external hemorrhoids Internal: No masses or gross blood Function: Normal Office Anoscopy/Proctoscopy I explained the procedure including the risks, benefits, and alternative. Verbal consent for the procedure was obtained. A pre-procedure verification was conducted prior to the procedure. The patient's identity, procedure, and when applicable the: side/site, patient position, availability of special equipment or special requirements was verbally confirmed prior to the procedure. Procedure: Diagnostic anoscopy Findings: Enlarged internal hemorrhoidal columns in the right anterior and right posterior position. Grade 2 prolapse. No stigmata of recent bleeding. Right posterior column more pronounced. Left lateral column not enlarged with evidence of surgical scarring. Complications: none The patient tolerated the procedure without issue. A technology risk intern was present for the entirety of the exam. Frailty Assessment: 1: Very Fit Data Review: Labs: No results found for: WBC, HGB, HCT, PLT Lab Results Component Value Date CREATININE 0.95 12/11/2021 BUN 12 12/11/2021 NA 139 12/11/2021 K 4.8 12/11/2021 CL 100 12/11/2021 CO2 24 12/11/2021 CALCIUM 9.9 12/11/2021 Lab Results Component Value Date TP 8.4 (H) 12/11/2021 LABALBU 5.2 (H) 12/11/2021 TBIL 0.7 12/11/2021 Radiology: none Assessment: Mike Stovall is a(n) 47 y.o. old male with symptomatic internal hemorrhoids with prolapse. He did have a previous hemorrhoidectomy in 2012 which likely treated his left lateral column and possibly his right anterior column. However the right posterior column looks untreated. Given his symptoms arepredominantly related to prolapse will recommend banding. Plan: Follow-up 2 months for hemorrhoids banding Increase fiber supplementation to 2 tablespoons Metamucil daily Drink plenty water Ted Aranda MD 11/06/2022 9:59 documented in this encounter Plan of Treatment Not on file documented as of this encounter Visit Diagnoses Diagnosis Internal hemorrhoids- Primary Internal hemorrhoids without mention of complication documented in this encounter Discontinued Medications Medication Sig Discontinue Reason Start Date End Da te polyethylene glycol (MIRALAX) 17 gram/dose powderIndications:Scr een for colon cancer Instructions mailed once procedure scheduled. 06/04/2022 11/06/2022 sertraline (ZOLOFT) 50 mg tabletIndications:Mil d depression Take 1 Tablet by mouth daily. 03/30/2022 11/06/2022 zolpidem (AMBIEN) 10 mg tablet Take 1 Tablet by mouth at bedtime as needed for Sleep. Daily Max: 10 mg 03/09/2022 11/06/2022 documented as of this encounter Historical Medications * This list may reflect changes made after this encounter. polyethylene glycol 3350 (MIRALAX) 17 gram packet Take 17 g by mouth daily. added in this encounter Care Teams Green Lumber Grader Relationship Specialty Start Date End Date Carlee Castillo DNP [address] [place] [address] PCP - General 10/25/19 07/20/23 documented as of this encounter
--- OUTSIDE RECORDS SUMMARY | 2024-11-27 15:42 | XMS_ITS | Encounter Summary ---
Author Organization [facility] Address [address] [place] [address] Care Team Providers Care Inspector Packager Name Role Phone Carlee Castillo DNP Primary Care Provider [phone] Encounter Details Date Type Department Care Team (Latest Contact Info) Description 05/06/2022 Travel Social History Tobacco Use Types Packs/Day [...] 13:53 EDT documented as of this encounter Plan of Treatment Not on file documented as of this encounter Visit Diagnoses Not on filedocumented in this encounter Care Teams Inspector Packager Relationship Specialty Start Date End Date Carlee Castillo DNP [address] [place] [address] PCP - General 10/25/19 07/20/23 documented as of this encounter
--- OUTSIDE RECORDS SUMMARY | 2024-11-27 15:42 | XMS_ITS | Encounter Summary ---
Author Organization [facility] Address [address] [place] [address] Care Team Providers Care Interactive Designer Name Role Phone Carlee Castillo DNP Primary Care Provider [phone] Reason for Visit * Reason Onset Date Comments Appointment Related 07/02/2023 Encounter Details Date Type Department Care Team (Late st Contact Info) Description 07/02/2023 Telephone [facility] Family [address] [address] Nurse, [facility] Appointment Related Social History Tobacco Use Types [...] place to sleep or slept in a care home (including now)? No 12/02/2021 Interpersonal Safety Answer Date Record ed How often does anyone, incldejan adenike family, hit, punch or physically hurt you? Never 12/02/2021 How often does anyone, heatherdejan adenike family, insult, scream, curse or threaten to hurt you? Never 12/02/2021 Sex and Gender Information Value Date Recorded Sex Assigned at Male 10/24/2024 7:41 EST Legal Sex Male 18:41 EST Gender Identity Male 01/03/2020 14:38 EST Sexual Orientation Not on file documented as of this encounter Miscellaneous Notes * Telephone Encounter - Keanu Bryant - 07/21/2023 0956 EDT Patient has transferred care to [place] * Telephone Encounter - Mirna Costa - 07/05/2023 0988 EDT LVM for pt to call back to explain. * Telephone Encounter - Keanu Bryant - 07/02/2023 0802 EDT Patient cancelled upcoming appt due to insurance coverage. Waiting for cb to discuss -- if another provider in office is covered, patient can continue to receive care. documented in this encounter Plan of Treatment Not on file documented as of this encounter Visit Diagnoses Not on filedocumented in this encounter Care Teams Interactive Designer Relationship Specialty Start Date End Date Carlee Castillo DNP [address] [place] [address] PCP - General 10/25/19 07/20/23 documented as of this encounter
--- OUTSIDE RECORDS SUMMARY | 2024-11-27 15:42 | XMS_ITS | Encounter Summary ---
Author Organization [facility] Address [address] [place] [address] Care Team Providers Care Sensor Specialist Name Role Phone Carlee Castillo DNP Primary Care Provider [phone] Encounter Details Date Type Department Care Team (Latest Contact Info) Description 12/02/2021 Travel Social History Tobacco Use Types Packs/Day [...] on filedocumented in this encounter Care Teams Sensor Specialist Relationship Specialty Start Date End Date Carlee Castillo DNP [address] [place] [address] PCP - General 10/25/19 07/20/23 documented as of this encounter
--- OUTSIDE RECORDS SUMMARY | 2024-11-27 15:42 | XMS_ITS | Encounter Summary ---
Author Organization [facility] Address [address] [place] [address] Care Team Providers Care Jewel Sawyer Name Role Phone Carlee Castillo DNP Primary Care Provider [phone] Reason for Visit * Reason Comments Other Mood and meds Encounter Details Date Type Department Care Team (Late st Contact Info) Description 03/09/2022 9:30 EDT Telemedicine [facility] [address] [address] Carlee Castillo DNP [address] [place] [address] Moderate major depression, single episode (HCC) (Primary Dx); Anxiety; Psychophysiological insomnia Social History Tobacco Use Types Packs/Day Years [...] Sign Reading Time Taken Comments Blood Pressure 131/85 03/09/2022 0903 EDT Pulse - - Temperature - - Respiratory Rate - - Oxygen Saturation - - Inhaled Oxygen Concentration - - Weight 87.1 kg (192 lb) 03/09/2022902 EDT Height 174 cm (5' 8.5) 03/09/2022902 EDT Body Mass Index 28.77 03/09/2022902 EDT documented in this encounter Ordered Prescriptions Prescription Sig Dispense Quantity Refills Last Filled Start Date End Date zolpidem (AMBIEN) 10 mg tablet Take 1 Tablet by mouth at bedtime as needed for Sleep. Daily Max: 10 mg 30 Tablet 03/09/2022 documented in this encounter Progress Notes * Carlee Castillo NP - 03/09/2022929 ED[place] [facility] [place] Today's visit was provided through telemedicine video conferencing: The location of the patient: Home The location of the provider: Home office Verbal consent: The concept of ???Telemedicine?? has been described to the patient.Patient has been informed of the anticipated benefits and possible risks. Patient understands the information provided regarding telemedicine, has had the opportunity to ask questions about this information, and all questions have been answered to patient???s satisfaction. Patient consents for the use of telemedicine in his/her medical care and authorizes the transmission of any relevant medical information to providers and their staff involved in patient???s medical or mental health care. Verbal consent obtained by myself or auxiliary staff: yes. Subjective: Chief Complaint(s): Other (Mood and meds) HPI: Last appointment 02/13/2022: - PHQ-9 = 13 - JASMIN 7 = 13 Prescribed sertraline 50mg, take 1/2 tab daily x 1 week, then increase to 1 tab. Prescribed lorazepam 0.5mg PRN insomnia or severe anxiety. Behavioral Health Screen Summary Interpretation PHQ-2: 2 PHQ-9: (!) 11 Moderate Depression JASMIN-2: 2 JASMIN-7: 2 Minimal Anxiety SASQ: AUDIT-10: SSASQ: DAST-10: . He has seen his daughters three times x 2 hours since our last appointment. He feels really down when he has to say goodbye. He reports his physical symptoms of anxiety (racing heart, sweats) has diminished. He is feeling more depressed. He thinks the intensity of his anxiety covered up how depressed he is feeling. He continues to have poor sleep with difficulty with sleep maintenance. He sleep for 3-5 hours and then is unable to fall back asleep. He has tried melatonin and benadryl without improvement. Low motivation, unusually low get up and go. He is tolerating sertraline 50mg/day without side effects. I have reviewed current problem list and current medications. ROS Review of Systems Psychiatric/Behavioral: Positive for dysphoric mood and sleep disturbance. The patient is nervous/anxious. Objective: Examination: Home Vitals: BP 131/85 Ht 174 cm (68.5) Wt 87.1 kg (192 lb) BMI 28.77 kg/m?? Pertinent exam findings: APPEARANCE: well groomed BEHAVIOR: appropriate, no psychomotor agitation or retardation, appropriate eye contact. THOUGHT PROCESS: logical, coherent. THOUGHT CONTENT: appropriate, no SI, misses his daughters SPEECH: normal rate and tone. MOOD: sad AFFECT: congruent with mood JUDGEMENT: good. INSIGHT: good. COGNITION: normal. Data reviewed with patient: last note Assessment & Plan: 1. Moderate major depression, single episode (HCC) Continue sertraline 50 mg daily along with counseling. Discussed that he may have more of a therapeutic effect in the next few weeks. If not, will consider increasing it or adding bupropion SR 100 mgdaily in the morning. Follow up via zoom 5/2, sooner if needed. 2. Anxiety His anxiety has improved since our last appointment. He has taken the lorazepam only once. Continuesertraline 50 mg daily along with counseling. Follow up via zoom 5/2, sooner if needed. 3. Psychophysiological insomnia I discussed the therapeutic benefits and side effects of zolpidem as needed. The goal is that he will take it for a few nights and get 7 to 8 hours of uninterrupted sleep and that this will reset hissleep schedule. He will then take it sparingly as needed. Follow up via zoom 5/2, sooner if needed. I spent a total of 35 minutes on the date of this encounter meeting with the patient and reviewing documentation/coordinating care as described in the above note. The following individuals and their role did participate in today's encounter visit: Provider: Carlee Castillo APRN Patient Portions of this document may contain text elements generated through computerized voice recognition technology. Undetected computer-generated word errors are possible. Please notify the signing provider if clarification or correction is needed. documented in this encounter Plan of Treatment Not on file documented as of this encounter Visit Diagnoses Diagnosis Moderate major depression, single episode ([facility])- Primary Major depressive disorder, single episode, moderate Anxiety Anxiety state, unspecified Psychophysiological insomnia Persistent disorder of initiating or maintaining sleep documented in this encounter Care Teams Jewel Sawyer Relationship Specialty Start Date End Date Carlee Castillo DNP [address] [place] [address] PCP - General 10/25/19 07/20/23 documented as of this encounter
--- OUTSIDE RECORDS SUMMARY | 2024-11-27 15:42 | XMS_ITS | Encounter Summary ---
Author Organization [facility] Address [address] [place] [address] Care Team Providers Care Automotive Heavy Mechanic Name Role Phone Carlee Castillo DNP Primary Care Provider [phone] Encounter Details Date Type Department Care Team (Latest Contact Info) Description 02/13/2022 Travel Social History Tobacco Use Types Packs/Day [...] 10:34 EDT documented as of this encounter Plan of Treatment Not on file documented as of this encounter Visit Diagnoses Not on filedocumented in this encounter Care Teams Automotive Heavy Mechanic Relationship Specialty Start Date End Date Carlee Castillo DNP [address] [place] [address] PCP - General 10/25/19 07/20/23 documented as of this encounter
--- OUTSIDE RECORDS SUMMARY | 2024-11-27 15:42 | XMS_ITS | Encounter Summary ---
Author Organization [facility] Address [address] [place] [address] Care Team Providers Care Direct Care Worker Name Role Phone Carlee Castillo DNP Primary Care Provider [phone] Encounter Details Date Type Department Care Team (Latest Contact Info) Description 03/13/2022 Travel Social History Tobacco Use Types Packs/Day [...] place to sleep or slept in a custodial (including now)? No 12/02/2021 Interpersonal Safety Answer [...] on filedocumented in this encounter Care Teams Direct Care Worker Relationship Specialty Start Date End Date Carlee Castillo DNP [address] [place] [address] PCP - General 10/25/19 07/20/23 documented as of this encounter
--- OUTSIDE RECORDS SUMMARY | 2024-11-27 15:42 | XMS_ITS | Encounter Summary ---
Author Organization [facility] Address [address] [place] [address] Care Team Providers Care Mineralogy Professor Name Role Phone Carlee Castillo DNP Primary Care Provider [phone] Encounter Details Date Type Department Care Team (Latest Contact Info) Description 01/05/2023 Travel Social History Tobacco Use Types Packs/Day [...] 14:18 EST documented as of this encounter Plan of Treatment Not on file documented as of this encounter Visit Diagnoses Not on filedocumented in this encounter Care Teams Mineralogy Professor Relationship Specialty Start Date End Date Carlee Castillo DNP [address] [place] [address] PCP - General 10/25/19 07/20/23 documented as of this encounter
--- OUTSIDE RECORDS SUMMARY | 2024-11-27 15:42 | XMS_ITS | Encounter Summary ---
Author Organization [facility] Address [address] [place] [address] Care Team Providers Care Flow Specialist Name Role Phone Carlee Castillo DNP Primary Care Provider [phone] Reason for Visit * Reason Onset Date Comments Medications Refill 02/01/2023 Encounter Details Date Type Department Care Team (Late st Contact Info) Description 02/01/2023 Refill [facility] [address] [address] Carlee Castillo DNP [address] [place] [address] Medications Refill Social History Tobacco Use [...] Refills Last Filled Start Date End Date rosuvastatin (CRESTOR) 20 mg tabletIndications:Mi xed hyperlipidemia 1 tab(s) orally once a day (at bedtime) 90 Tablet 3 02/01/2023 documented in this encounter Miscellaneous Notes * Telephone Encounter - Deidra Tomas RN - 02/01/2023 1321 EST LIONEL -01/05/23 NOV - 07/08/23 last lipids - 12/15/22 Rx(s) escribed to pharmacy. * Telephone Encounter - Deidra Tomas RN - 02/01/2023 1321 ESTFrom: Mike Stovall To: Office of Carlee Castillo NP Sent: 02/01/2023 13:02 EST Subject: Medication Renewal Request Refills have been requested for the following medications: rosuvastatin (CRESTOR) 20 mg tablet [Carlee Castillo] Preferred pharmacy: [id number] - [facility] documented in this encounter Plan of Treatment Not on file documented as of this encounter Visit Diagnoses Diagnosis Mixed hyperlipidemia- Primary documented in this encounter Discontinued Medications Medication Sig Discontinue Reason Start Date End Da te rosuvastatin (CRESTOR) 20 mg tabletIndications:Mixed hyperlipidemia 1 tab(s) orally once a day (at bedtime) Reorder 02/13/2022 02/01/2023 documented as of this encounter Care Teams Flow Specialist Relationship Specialty Start Date End Date Carlee Castillo DNP [address] [place] [address] PCP - General 10/25/19 07/20/23 documented as of this encounter
--- OUTSIDE RECORDS SUMMARY | 2024-11-27 15:42 | XMS_ITS | Encounter Summary ---
Author Organization [facility] Address [address] [place] [address] Care Team Providers Care Information And Referral Director Name Role Phone Carlee Castillo DNP Primary Care Provider [phone] Reason for Visit * Reason Comments Follow-up mood // insomnia Encounter Details Date Type Department Care Team (Late st Contact Info) Description 03/30/2022 11:30 EDT Telemedicine [facility] [address] [address] Carlee Castillo DNP [address] [place] [address] Anxiety (Primary Dx); Mild depression ([facility]); Psychophysiological insomnia Social History Tobacco Use Types [...] 12/02/2021 PHQ-2 Answer Date Recorded PHQ-2 SUBTOTAL 1 03/30/2022 Hunger Vital Sign Answer Date Recorded Within [...] 15:46 EDT documented as of this encounter Last Filed Vital Signs Vital Sign Reading Time Taken Comments Blood Pressure 122/86 03/30/2022 0924 EDT Pulse 52 03/30/2022 0924 EDT Temperature - - Respiratory Rate - - Oxygen Saturation - - Inhaled Oxygen Concentration - - Weight 87.1 kg (192 lb) 03/30/2022923 EDT Height 174 cm (5' 8.5) 03/30/2022923 EDT Body Mass Index 28.77 03/30/2022923 EDT documented in this encounter Ordered Prescriptions Prescription Sig Dispense Quantity Refills Last Filled Start Date End Date sertraline (ZOLOFT) 50 mg tabletIndications: Mild depression Take 1 Tablet by mouth daily. 90 Tablet 1 03/30/2022 11/06/2022 documented in this encounter Progress Notes * Carlee Castillo NP - 03/30/2022 1130 EDT [facility] [place] Visit Today's visit was provided through [...] or auxiliary staff: yes. Subjective: Chief Complaint(s): Follow-up (mood // insomnia) HPI: Last appointment 03/09/2022: - PHQ-9 = 11 - JASMIN 7 = 2 Last appointment sertraline 50mg was continued and zolpidem was prescribed as needed for insomnia. He has rarely taken zolpidem. Mike reports he is feeling better. His daughters spent 2 days/nights with him with supervision. Heand they were very happy to be together at home. They will be with him 2 days/nights per week for the forseeable future. The divorce remains stressful as his ex has been very challenging to work with. 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 He has completed his 3rd semester at [employer]. He has one week off and then will begin his next semester. He will graduate October 2022. Behavioral Health Screen Summary Interpretation PHQ-2: 1 PHQ-9: 5 Mild Depression JASMIN-2: 2 JASMIN-7: 4 Minimal Anxiety SASQ: AUDIT-10: SSASQ: DAST-10: . I have reviewed current problem list and current medications. ROS Review of Systems Psychiatric/Behavioral: Positive for dysphoric mood (mild). The patient is nervous/anxious (mild). Objective: Examination: Home Vitals: BP 122/86 Pulse 52 Ht 174 cm (68.5) Wt 87.1 kg (192 lb) BMI 28.77 kg/m?? Pertinent exam findings: GENERAL APPEARANCE: no acute distress, pleasant, cooperative. HEENT EYES:, conjunctiva clear. NECK: supple LUNGS: unlabored SKIN: warm & dry. NEUROLOGIC EXAM: alert & oriented x3 PSYCH: mood appropriate, affect full range Data reviewed with patient: last note Assessment & Plan: 1. Mild depression (HCC-CMS) (HCC) Continue sertraline 50 mg daily, counseling, self-care. Follow-up May 06 as scheduled, sooner if needed. 2. Anxiety Same as 1. 3. Psychophysiological insomnia Symptoms improved. Zolpidem 10mg take 1/2 to 1 tab as needed. I spent a total of 30 minutes on the date of this encounter [...] as of this encounter Visit Diagnoses Diagnosis Anxiety- Primary Anxiety state, unspecified Mild depression Depressive disorder, not elsewhere classified Psychophysiological insomnia Persistent disorder of initiating or maintaining sleep documented in this encounter Discontinued Medications Medication Sig Discontinue Reason Start Date End Da te ibuprofen (MOTRIN) 400 mg tablet Take 1 Tab by mouth every 6 hours. Therapy completed 03/30/2022 sertraline (ZOLOFT) 50 mg tabletIndications:Moderat e anxiety,Moderate major depression, single episode (HCC-CMS) Take 1/2 tab by mouth daily x 1 week, then take 1 tab by mouth daily 02/13/2022 03/30/2022 documented as of this encounter Care Teams Information And Referral Director Relationship Specialty Start Date End Date Carlee Castillo DNP [address] [place] [id number] PCP - General 10/25/19 07/20/23 documented as of this encounter
--- OUTSIDE RECORDS SUMMARY | 2024-11-27 15:42 | XMS_ITS | Encounter Summary ---
Author Organization [facility] Address [address] [place] [address] Care Team Providers Care Center Administrator Name Role Phone None, Provider Primary Care Provider Unavailabl e Encounter Details Date Type Department Care Team (Late st Contact Info) Description 07/06/2024 Orders Only [facility] - [facility] [address] [place] [address] Keeley Boyd RN Immunity status testing (Primary Dx); Screening-pulmonary TB Social History Tobacco Use Types [...] the money to buy more. Never true 01/04/20 22 Within the past 12 months, t [...] place to sleep or slept in a skilled nursing (including now)? No 12/02/2021 Interpersonal Safety Answer Date Record ed How often does anyone, melvin jeong family, hit, punch or physically hurt you? Never 12/02/2021 How often does anyone, melivn jeong family, insult, scream, curse or threaten [...] encounter Results * HEPATITIS B SURFACE ANTIBODY (07/06/2024 10:40 EDT) Hep B Surface Ab, Quantitative 4.3 See Note mIU/mL 07/06/2024 12:45 EDT [facility] Comment: Clinical Interpretation of Immune [...] ORDERABL ES Final Result Performing Organization Address [facility] Co de Phone Number [facility] [address] [place] [address] * VARICELLA IGG ANTIBODY (07/06/2024 10:40 EDT) Varicella IgG Ab Negative See Note 07/07/2024 23:29 EDT [facility] Blood VENOUS BLOOD / Unknown Venipuncture / Unknown 07/06/2024 10:40 EDT 07/06/2024 11:30 EDT us Alondra Head MD IMMUNOLOGY AND SEROLOGY ORDERA BLES Final Result Performing Organization Address [facility] Co de Phone Number [facility] [address] [place], [place] [phone] * RUBELLA IGG ANTIBODY (07/06/2024 10:40 EDT) Rubella IgG Ab Positive See Note 07/06/2024 12:24 EDT [facility] Comment:The presence of Rube lla IgG suggests immunity against Rubella. Blood VENOUS BLOOD / Unknown Venipuncture / Unknown 07/06/2024 10:40 EDT 07/06/2024 11:30 EDT us Alondra Head MD CHEMISTRY & BLOOD GAS ORDERABL ES Final Result Performing Organization Address [facility] Co de Phone Number [facility] [address] [place] [address] * MUMPS ANTIBODY IGG (07/06/2024 10:40 EDT) Mumps Antibody IgG Positive See Note 07/07/2024 22:21 EDT [facility] Comment:Presence of detectab le mumps virus IgG antibodies. Blood VENOUS BLOOD / Unknown Venipuncture / Unknown 07/06/2024 10:40 EDT 07/06/2024 11:30 EDT Alondra Head MD IMMUNOLOGY AND SEROLOGY ORDERA BLES Final Result Performing Organization Address [facility]/ZIP Co de Phone Number [facility] [address] [place] [address] * MEASLES IGG AB (07/06/2024 10:40 EDT) Measles IgG Ab Positive See Note 07/07/2024 22:22 EDT [facility] Comment:Presence of detectab le measles virus IgG antibodies. Blood VENOUS BLOOD / Unknown Venipuncture / Unknown 07/06/2024 10:40 EDT 07/06/2024 11:30 EDT Alondra Head MD IMMUNOLOGY AND SEROLOGY ORDERA BLES Final Result Performing Organization Address [facility] Co de Phone Number [facility] [address] [place] [address] documented in this encounter Visit Diagnoses Diagnosis Immunity status testing- Primary Antibody response examination Screening-pulmonary TB Screening examination for pulmonary tuberculosis documented in this encounter Care Teams Center Administrator Relationship Specialty Start Date End Date None, Provider PCP - General 10/24/24 documented as of this encounter
--- OUTSIDE RECORDS SUMMARY | 2024-11-27 15:42 | XMS_ITS | Encounter Summary ---
Author Organization [facility] Address [address] [place] [address] Care Team Providers Care Eyeglass Lens Grinder Name Role Phone Carlee Castillo DNP Primary Care Provider [phone] Reason for Visit * Reason Comments PPD Placement Encounter Details Date Type Department Care Team (Late st Contact Info) Description 03/11/2022 16:00 EDT Nurse Only [facility] [address] [address] Nurse, [facility] Screening-pulmonary TB (Primary Dx) Social History [...] 15:57 EDT documented as of this encounter Last Filed Vital Signs Vital Sign Reading Time Taken Comments Blood Pressure - - Pulse - - Temperature 36.9 ??C (98.5 ??F) 03/11/2022 1601 EDT Respiratory Rate - - Oxygen Saturation - - Inhaled Oxygen Concentration - - Weight - - Height - - Body Mass Index - - documented in this encounter Progress Notes * Patti Gaona LPN - 03/11/2022 1600 EDT Patient presents to the office for a PPD placement. Procedure Note: PPD Placement note Mike Stovall, 46 y.o. male is here today for placement of PPD test. Placed to L inner forearm. F/u appointment made for PPD read. Patient tolerates procedure well and leaves the suite without complaint. Patient instructed to contact the office with any further questions or concerns. I was supervised by Carlee Castillo DNP, BUSINESS ADMINISTRATOR who was present and immediately available in the office suite. PATTI GAONA LPN 03/11/2022 16:09 documented in this encounter Plan of Treatment Not on file documented as of this encounter Procedures Procedure Name Priority Date/Time Associated Diagnosis Comments PLACE PPD Routine 03/13/2022 15:54 EDT Screening-pulmonary TB documented in this encounter Results * PLACE PPD (03/13/2022 15:54 EDT) TB Skin Test negative [facility] P OINT OF CARE Induration 0 [facility] POI NT OF CARE Skin TISSUE SPECIMEN FROM SKIN / Unknown 03/13/2022 15:54 EDT Carlee Castillo DNP POINT OF CARE TEST ORDERABLES Fi nal Result [facility] POINT OF CARE documented in this encounter Visit Diagnoses Diagnosis Screening-pulmonary TB- Primary Screening examination for pulmonary tuberculosis documented in this encounter Care Teams Eyeglass Lens Grinder Relationship Specialty Start Date End Date Carele Castillo DNP [address] [place] [address] PCP - General 10/25/19 07/20/23 documented as of this encounter
--- OUTSIDE RECORDS SUMMARY | 2024-11-27 15:42 | XMS_ITS | Encounter Summary ---
Author Organization [facility] Address [address] [place] [address] Care Team Providers Care Staff Certified Nurse Midwife Name Role Phone Carlee Castillo DNP Primary Care Provider [phone] Reason for Visit * Reason Onset Date Comments Medications Refill 11/17/2021 Encounter Details Date Type Department Care Team (Late st Contact Info) Description 11/17/2021 Refill [facility] [address] [address] Carlee Castillo DNP [address] [place] [address] Medications Refill Social History Tobacco Use [...] a day (at bedtime) 90 Tablet 3 11/17/2021 2 documented in this encounter Miscellaneous Notes * Telephone Encounter - Tyra Pinon MA - 11/17/2021 1529 EST Medication Requested: Crestor 20mg HS Last OV: 06/26/2021 Next OV: 12/02/2021 Last Refill: 11/18/2020 Last Lipid: 10/30/2021 Pharmacy Of Choice: [facility] documented in this encounter Plan of Treatment Not on file documented as of this encounter Visit Diagnoses Diagnosis Mixed hyperlipidemia- Primary documented in this encounter Discontinued Medications Medication Sig Discontinue Reason Start Date End Da te rosuvastatin (CRESTOR) 20 mg tabletIndications:Mixed hyperlipidemia 1 tab(s) orally once a day (at bedtime) Reorder 11/18/2020 11/17/2021 documented as of this encounter Care Teams Staff Certified Nurse Midwife Relationship Specialty Start Date End Date Carlee Castillo DNP [address] [place] [address] PCP - General 10/25/19 07/20/23 documented as of this encounter
--- OUTSIDE RECORDS SUMMARY | 2024-11-27 15:42 | XMS_ITS | Encounter Summary ---
Author Organization [facility] Address [address] [place] [address] Care Team Providers Care Mogul Operator Name Role Phone Carlee Castillo DNP Primary Care Provider [phone] Reason for Visit * Reason Comments Hypertension Encounter Details Date Type Department Care Team (Latest Contact Info) Description 12/02/2021 8:20 EST Office Visit [facility] Family Medicine [address] [address] Carlee Castillo DNP [address] [place] [address] Essential (primary) hypertension (Primary Dx) Social History Tobacco Use Types [...] place to sleep or slept in a chcf (including now)? No 12/02/2021 Interpersonal Safety Answer [...] 7:50 EST documented as of this encounter Last Filed Vital Signs Vital Sign Reading Time Taken Comments Blood Pressure 124/82 12/02/2021 0816 EST Pulse 70 12/02/2021 0816 EST Temperature - - Respiratory Rate 16 12/02/2021 0816 EST Oxygen Saturation 98% 12/02/2021 0816 EST Inhaled Oxygen Concentration - - Weight 89.4 kg (197 lb) 12/02/2021 0816 EST Height 174 cm (5' 8.5) 12/02/2021 0816 EST Body Mass Index 29.51 12/02/2021 0816 EST documented in this encounter Ordered Prescriptions Prescription Sig Dispense Quantity Refills Last Filled Start Date End Date irbesartan (AVAPRO) 300 mg tabletIndications: Essential (primary) hypertension Take 1 Tablet by mouth daily. 90 Tablet 4 12/02/2021 02/13/2022 documented in this encounter Progress Notes * CastilloAbby garzaily, NFL PLAYER - 12/02/2021 0820 EST [facility] [place] Subjective: Chief Complaint(s): Hypertension HPI Follow up hypertension. He is prescribed lisinopril 40mg/day. Compliant with medication. He has had a chronic dry cough and needs to clear his throat occasionally. He is curious if this is a side effect of the lisinopril. 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 He denies any wheezing, shortness of breath, reflux, fever, chills. He is fully vaccinated from COVID-19 having received 2 shots and a booster. He continues to have a high stress level related to separation from his and planning for theirdivorce. He is working with a therapist, Donald Willson. He is motivated to set up his treadmill and resume regular exercise for physical and mental health benefits. I have reviewed patient's tobacco history: reports [...] 1 Tab by mouth every 6 hours. ??? rosuvastatin (CRESTOR) 20 mg tablet 1 tab(s) orally once a day (at bedtime) 90 Tablet 3 No current facility-administered medications on file prior to visit. Review of Systems Constitutional: Negative for activity change, appetite change, fatigue, fever and unexpected weightchange. Respiratory: Positive for cough. Negative for chest tightness, shortness of breath and wheezing. Gastrointestinal: Negative for abdominal pain. Objective: Examination: Vitals: BP 124/82 Pulse 70 Resp 16 Ht 174 cm (68.5) Wt 89.4 kg (197 lb) SpO2 98% BMI 29.51 kg/m?? Body mass index is 29.51 kg/m??. Physical Exam GENERAL APPEARANCE: no acute distress, pleasant, cooperative. HEENT EYES:, conjunctiva clear. HEART: normal S1S2, no murmurs. LUNGS: good air entry bilaterally, clear to auscultation. SKIN: warm & dry. NEUROLOGIC EXAM: alert & oriented x3, gait normal. Data reviewed with patient (past results): Reviewed and/or ordered active problem list, medication list, allergies, social history, health maintenance, lab results Recent Results (from the past 1008 hour(s)) HEPATITIS C AB W REFLEX TO HCV RNA BY PCR Collection Time: 10/30/21 8:51 Result Value Ref Range Hep C Antibody Negative Negative HIV 1/2 ANTIGEN AND ANTIBODY, 4TH GENERATION Collection Time: 10/30/21 8:51 Result Value Ref Range HIV 1 and 2 Antibody/p24 Antigen, 4th Generation Negative Negative SYPHILIS RPR SCREEN W/REFLEX Collection Time: 10/30/21 8:51 Result Value Ref Range Rapid Plasma Reagin Screen (RPR) Nonreactive Nonreactive COMPREHENSIVE METABOLIC PANEL (CMP) Collection Time: 10/30/21 8:51 Result Value Ref Range Sodium 137 136 - 145 mmol/L Potassium 4.7 3.5 - 5.0 mmol/L Chloride 96 96 - 110 mmol/L CO2 Total 27 22 - 32 mmol/L Glucose 94 70 - 100 mg/dL BUN 15 10 - 26 mg/dL Creatinine 0.91 0.66 - 1.25 mg/dL eGFR 102 >60 mL/min/1.73m2 Total Protein 8.4 (H) 6.3 - 8.2 g/dL Albumin 5.1 (H) 3.4 - 4.9 g/dL Alkaline Phosphatase 40 38 - 126 U/L AST 39 15 - 46 U/L ALT 51 (H) <50 U/L Bilirubin, Total 0.6 <1.4 mg/dL Calcium 9.9 8.5 - 10.5 mg/dL Albumin/Globulin Ratio 1.5 1.0 - 2.5 Anion Gap 14 8 - 16 LIPID PROFILE (INCLUDES CHOLESTEROL, TRIGLYCERIDES, HDL, LDL) Collection Time: 10/30/21 8:51 Result Value Ref Range Cholesterol 207 See Note mg/dL HDL 54 See Note mg/dL LDL, Calculated 121 See Note mg/dL Triglyceride 160 See Note mg/dL Chol/HDL Ratio 3.8 See Note Non HDL Cholesterol 153 See Note mg/dL CHLAMYDIA/N. GONORRHOEAE AMPLIFIED RNA Collection Time: 10/30/21 8:52 Specimen: Urine, Dirty Urine Result Value Ref Range Gonococcus Result Negative Negative Chlamydia Result Negative Negative Narrative ??? Xpert CT/NG Assay performance has not been evaluated in patients less than 14 years of age. Assessment & Plan: 1. Essential (primary) hypertension We will discontinue lisinopril 40 mg daily and start irbesartan 300 mg daily. Home blood pressure monitoring recommended. Send me an update in 1 month with your average blood pressure readings. Recheck a BMP in 1 to 2 weeks. Follow-up in 6 months, sooner if your blood pressure is greater than 140/90. Continue healthy diet, stress management, regular exercise recommended. - irbesartan (AVAPRO) 300 mg tablet; Take 1 Tablet by mouth daily. Dispense: 90 Tablet; Refill: 4 - BASIC METABOLIC PANEL (BMP); Future Return in about 6 months (around 06/01/2022) for HTN. Speech recognition software was used to complete this progress note. Typographical errors may be present. * Ivonne Aceves MA - 12/02/2021 0820 EST Hypertension Last seen: 06/26/21 Taking: Lisinopril 40 mg tab Last CMP: 10/30/21 documented in this encounter Plan of Treatment Not on file documented as of this encounter Visit Diagnoses Diagnosis Essential (primary) hypertension- Primary Unspecified essential hypertension documented in this encounter Discontinued Medications Medication Sig Discontinue Reason Start Date End Da te lisinopriL (PRINIVIL) 40 mg tabletIndications:Essenti al (primary) hypertension 1 tab(s) orally once a day Therapy completed 06/03/2021 12/02/2021 documented as of this encounter Orders Lab Orders Without Results Count Last Ordered D ate First Ordered Date BASIC METABOLIC PANEL (BMP) 1 12/02/2021 documented in this encounter Care Teams Mogul Operator Relationship Specialty Start Date End Date Carlee Castillo DNP [address] [place] [id number] PCP - General 10/25/19 07/20/23 documented as of this encounter
--- OUTSIDE RECORDS SUMMARY | 2024-11-27 15:42 | XMS_ITS | Encounter Summary ---
Author Organization [facility] Address [address] [place] [address] Care Team Providers Care Kennel Worker Name Role Phone Carlee Castillo DNP Primary Care Provider [phone] Encounter Details Date Type Department Care Team (Latest Contact Info) Description 11/06/2022 Travel Social History Tobacco Use Types Packs/Day [...] place to sleep or slept in a group home (including now)? No 12/02/2021 Interpersonal Safety [...] 9:37 EST documented as of this encounter Plan of Treatment Not on file documented as of this encounter Visit Diagnoses Not on filedocumented in this encounter Care Teams Kennel Worker Relationship Specialty Start Date End Date Carlee Castillo DNP [address] [place] [id number] PCP - General 10/25/19 07/20/23 documented as of this encounter
--- OUTSIDE RECORDS SUMMARY | 2024-11-27 15:42 | XMS_ITS | Encounter Summary ---
Author Organization [facility] Address [address] [place] [address] Care Team Providers Care Production Line Welder Name Role Phone None, Provider Primary Care Provider Unavailabl e Encounter Details Date Type Department Care Team (Late st Contact Info) Description 10/24/2024 7:45 EST Phlebotomy Only [facility] - Outpatient Phlebotomy Drawing [address] [place] [address] [place], [facility] [place] Immunity status testing Social History Tobacco Use Types Packs/Day Years [...] place to sleep or slept in a prison (including now)? No 12/02/2021 Interpersonal Safety Answer [...] Routine 10/24/2024 7:47 EST Immunity status testing documented in this encounter Results * HEPATITIS B SURFACE ANTIBODY (10/24/2024 7:47 EST) Hep B Surface Ab, Quantitative >1,000.0 See Note mIU/mL 10/24/2024 12:28 EST [facility] Comment: Clinical Interpretation of [...] ORDERABL ES Final Result Performing Organization Address [facility]/ZIP Co de Phone Number [facility] [address] [place] [address] * VARICELLA IGG ANTIBODY (10/24/2024 7:47 EST) Varicella IgG Ab Positive See Note 10/24/2024 20:49 EST [facility] Blood VENOUS BLOOD / Unknown Venipuncture / Unknown 10/24/2024 7:47 EST 10/24/2024 8:39 EST us Alondra Head MD IMMUNOLOGY AND SEROLOGY ORDERA BLES Final Result Performing Organization Address [facility]/ZIP Co de Phone Number [facility] [address] [place] [address] documented in this encounter Visit Diagnoses Diagnosis Immunity status testing Antibody response examination documented in this encounter Care Teams Production Line Welder Relationship Specialty Start Date End Date None, Provider PCP - General 10/24/24 documented as of this encounter
--- OUTSIDE RECORDS SUMMARY | 2024-11-27 15:43 | XMS_ITS | Encounter Summary ---
Author Organization [facility] Address [address] [place] [address] Care Team Providers Care Correction Officer Penitentiary Name Role Phone CastilloCarlee JOSH Primary Care Provider [phone] Reason for Visit * Reason Onset Date Comments Medications Refill 04/16/2020 Encounter Details Date Type Department Care Team (Late st Contact Info) Description 04/16/2020 Refill [facility] Integrative Family Medicine [address] [address] Deidra Ott, RN Medications Refill Social History Tobacco Use Types Packs/Day Years Used Date Smoking Tobacco: Former Smokeless Tobacco: Never Sex and Gender Information Value Date Recorded Sex Assigned at Male 10/24/2024 7:41 EST Legal Sex Male 18:41 EST Gender Identity Male 01/03/2020 14:38 EST Sexual Orientation Not on file documented as of this encounter Ordered Prescriptions Prescription Sig Dispense Quantity Refills Last Filled Start Date End Date lisinopriL (PRINIVIL) 40 mg tabletIndications: Essential (primary) hypertension 1 tab(s) orally once a day 90 Tab 3 04/16/2020 07/08/2020 documented in this encounter Miscellaneous Notes * Telephone Encounter - Deidra Ott RN - 04/16/20201 EDT Refill lisinopril 40mg LIONEL - 01/08/20 NOV - 07/08/20 last BMP - 01/07/20 Rx(s) escribed to pharmacy. DEIDRA OTT RN documented in this encounter Plan of Treatment Not on file documented as of this encounter Visit Diagnoses Diagnosis Essential (primary) hypertension- Primary Unspecified essential hypertension documented in this encounter Discontinued Medications Medication Sig Discontinue Reason Start Date End Da te lisinopril (PRINIVIL) 40 mg tabletIndications:Radha al (primary) hypertension 1 tab(s) orally once a day Reorder 12/01/2019 04/16/2020 documented as of this encounter Care Teams Correction Officer Penitentiary Relationship Specialty Start Date End Date Carlee Castillo DNP [address] [place] [id number] PCP - General 10/25/19 07/20/23 documented as of this encounter
--- OUTSIDE RECORDS SUMMARY | 2024-11-27 15:43 | XMS_ITS | Encounter Summary ---
Author Organization [facility] Address [address] [place] [address] Care Team Providers Care Commercial Installer Name Role Phone Carlee Castillo DNP Primary Care Provider [phone] Reason for Visit * Reason Comments Follow-up HTN Encounter Details Date Type Department Care Team (Latest Contact Info) Description 12/06/2020 8:20 EST Office Visit [facility] Family Medicine [address] [address] Carlee Castillo DNP [address] [place] [address] Essential (primary) hypertension (Primary Dx); Immunization deficiency; Mixed hyperlipidemia Social History Tobacco Use Types [...] No 07/08/2020 PHQ-2 Answer Date Recorded PHQ-2 Score 0 06/30/2020 Interpersonal Safety Answer Date Record ed Physically [...] have Coronavirus / COVID-19? No / Unsure 12/06/2020 8:15 EST documented as of this encounter Last Filed Vital Signs Vital Sign Reading Time Taken Comments Blood Pressure 124/82 12/06/2020 0825 EST Pulse 63 12/06/2020 0825 EST Temperature - - Respiratory Rate 16 12/06/2020 0825 EST Oxygen Saturation 97% 12/06/2020 0825 EST Inhaled Oxygen Concentration - - Weight 91.4 kg (201 lb 9.6 oz) 12/06/[address] Height 174 cm (5' 8.5) 12/06/2020 0825 EST Body Mass Index 30.2 12/06/2020 0825 EST documented in this encounter Progress Notes * Carlee Castillo APRN - 12/06/2020 0820 EST [facility] Primary Care Subjective: Chief Complaint(s): Follow-up (HTN) HPI Follow up hypertension and paperwork completion for the BSN program at [facility]. Compliant with lisinopril 40mg/day. No side effects. Healthy diet. Active at home. Last labs 01/07/2020 I have reviewed patient's tobacco history: reports [...] Tab by mouth every 6 hours. ??? lisinopriL (PRINIVIL) 40 mg tablet 1 tab(s) orally once a day 90 Tab 3 ??? pseudoephedrine (SUDAFED) 30 mg tablet Take 1 Tab by mouth every 6 hours. ??? rosuvastatin (CRESTOR) 20 mg tablet 1 tab(s) orally once a day (at bedtime) 90 Tab 3 No current facility-administered medications on file prior to visit. Review of Systems Respiratory: Negative for cough and shortness of breath. Cardiovascular: Negative for chest pain, palpitations and leg swelling. Objective: Examination: Vitals: BP 124/82 Pulse 63 Resp 16 Ht 174 cm (68.5) Wt 91.4 kg (201 lb 9.6 oz) SpO2 97% BMI 30.20 kg/m?? Body mass index is 30.2 kg/m??. Physical Exam GENERAL APPEARANCE: no acute distress, pleasant, cooperative. HEENT EYES:, conjunctiva clear. NECK: supple, no lymphadenopathy. HEART: normal S1S2, no murmurs. LUNGS: good air entry bilaterally, clear to auscultation. ABDOMEN: soft, NT/ND, BS present, no masses felt, no hepatosplenomegaly. SKIN: warm & dry. NEUROLOGIC EXAM: alert & oriented x3, gait normal. Data reviewed with patient (past results): Reviewed and/or ordered active problem list, medication list, allergies, family history, social history, health maintenance, notes from last encounter tests Assessment & Plan: 1. Essential (primary) hypertension Blood pressure reviewed, at goal, continue current treatment. - COMPREHENSIVE METABOLIC PANEL (CMP) 2. Immunization deficiency Labs to verify immunity for BSN program at [facility]. Will complete paperwork when labs received. - RUBELLA IGG ANTIBODY - MEASLES IGG AB - MUMPS ANTIBODY IGG - HEPATITIS B SURFACE ANTIBODY - VARICELLA IGG ANTIBODY - TD (ADULT) 2 LF VACCINE =>9YO IM 3. Mixed hyperlipidemia Fasting lipids today. - COMPREHENSIVE METABOLIC PANEL (CMP) - LIPID PROFILE (INCLUDES CHOLESTEROL, TRIGLYCERIDES, HDL, LDL) * Tyra Pinon - 12/06/2020 0820 EST Performed by Tyra Pinon [facility] Site Collected Left Antecubital Space Volume Withdrawn STT; 8.5ml Patient Response Patient tolerated venipuncture well, Number of attempts 1 and Butterfly used Ordering Provider Carlee Castillo APRN documented in this encounter Miscellaneous Notes * Result Encounter Note - Carlee Castillo APRN - 12/06/2020 0820 EST Lipids at goal. Not immune to Hepatitis B, will need to schedule a nurse visit for 3 shot series (1st dose, 2nd dose 2 months later, 3rd dose 6 months after first dose). Glucose high (prediabetes) ifyou had only black coffee this morning. Other labs pending. documented in this encounter Plan of Treatment Not on file documented as of this encounter Procedures Procedure Name Priority Date/Time Associated Diagnosis Comments MEASLES IGG AB Routine 12/06/2020 9:00 EST Immunization deficiency RUBELLA IGG ANTIBODY Routine 12/06/2020 9:00 EST Immunization deficiency HEPATITIS B SURFACE ANTIBODY Routine 12/06/2020 9:00 EST Immunization deficiency VARICELLA IGG ANTIBODY Routine 12/06/2020 9:00 EST Immunization deficiency MUMPS ANTIBODY IGG Routine 12/06/2020 9: 00 EST Immunization deficiency LIPID PROFILE (INCLUDES CHOLESTEROL, TRIGLYCERIDES, HDL, LDL) Routine 12/06/2020 9:00 EST Mixed hyperlipidemia COMPREHENSIVE METABOLIC PANEL (CMP) Routine 12/06/2020 9:00 EST Essential (primary) hypertension Mixed hyperlipidemia documented in this encounter Results * LIPID PROFILE (INCLUDES CHOLESTEROL, TRIGLYCERIDES, HDL, LDL) (12/06/2020 9:00 EST) Triglyceride 208 <150 mg/dL 12/06/2020 14:02 EST [facility] Comment: Adult: Normal: ?<150 mg/dl ? Borderline High: 150-199 mg/dl ? High: ?200-499 mg/dl ? Very High: >eb=[id number] Cholesterol 175 <200 mg/dL 12/06/2020 14:02 [facility] Comment: Acceptable: ??<200 Borderline: ??200-239 High: ?> or = 240 Chol/HDL Ratio 4.3 0 - 5.0 12/06/2020 14:02 [facility] Comment: DESIRABLE RATIO IS LESS THAN 4.1 PATIENTS ARE CONSIDERED AT RISK: WOMEN RATIO >5 MEN RATIO >6 FASTING? - [facility] Yes 13:43 [facility] HDL 40 40 - 60 mg/dL 12/06/2020 14:02 [facility] Comment: ?? Reference Range Low: ? < 40 ??mg/dL Normal: ??40-60 mg/dL High: ?>= 60 mg/dL LDL CHOLESTEROL - [facility] 93 60 - 100 mg/dL 12/06/2020 14:02 [facility] Non HDL Cholesterol 135 mg/dl 12/06/2020 14:02 [facility] Comment: Desirable: ?Less than 130 Borderline High: ??130-159 High: ? 160-189 Very High: ?Greater than or equal to 190 Blood VENOUS BLOOD / Unknown 12/06/2020 9:00 EST 12/06/2020 13:39 EST Carlee Castillo [facility] CHEMISTRY & BLOOD GAS ORDERABLES Final Result Performing Organization Address City/State/[facility] Co de Phone Number [facility] [address] [place] [address] * (ABNORMAL) COMPREHENSIVE METABOLIC PANEL (CMP) (12/06/2020 9:00 EST) Albumin % 4.9 3.4 - 4.9 g/dL 12/06/2020 14:02 [facility] ALKALINE PHOSPHATASE - [facility] 45 38 - 126 U/L 12/06/2020 14:02 [facility] BILIRUBIN TOTAL 0.6 0.2 - 1.3 mg/dL 12/06/2020 14:02 [facility] BUN - [facility] 15 10 - 26 mg/dL 12/06/2020 14:02 [facility] CALCIUM - [facility] 10.2 8.5 - 10.5 mg/dL 12/06/2020 14:02 [facility] Chloride 103 96 - 110 mmol/L 12/06/2020 14:02 [facility] CO2 Total 22 21 - 32 mEq/L 12/06/2020 14:02 [facility] CREATININE 0.82 0.66 - 1.25 mg/dL 12/06/2020 14:02 [facility] eGFR >60 12/06/2020 14:02 [facility] Comment: Chronic renal impairment is defined as GFR <60 Multiply result by 1.210 for patients. Anion Gap 13 0 - 18 12/06/2020 14:02 [facility] GLUCOSE - [facility] 111(H) 70 - 100 mg/dL 12/06/2020 14:02 [facility] Potassium 4.5 3.5 - 5.0 mEq/L 12/06/2020 14:02 [facility] Sodium 138 136 - 145 mEq/L 12/06/2020 14:02 [facility] TOTAL PROTEIN - [facility] 7.8 6.2 - 8.2 gm/dL 12/06/2020 14:02 [facility] SGOT/AST - [facility] 36 17 - 59 U/L 12/06/2020 14:02 [facility] SGPT/ALT - [facility] 40 0 - 50 U/L 14:02 [facility] Blood VENOUS BLOOD / Unknown 12/06/2020 9:00 EST 12/06/2020 13:39 EST us Carlee Castillo DNP CHEMISTRY & BLOOD GAS ORDERABLES Final Result [facility] [address] [place] [address] * VARICELLA IGG ANTIBODY (12/06/2020 9:00 EST) Varicella IgG Ab Positive Negative 12/06/2020 23:48 EST [facility] Comment:Presumed immune to V aricella infection. Blood VENOUS BLOOD / Unknown 12/06/2020 9:00 EST 12/06/2020 13:39 EST Carlee Castillo [facility] IMMUNOLOGY AND SEROLOGY ORDERABL ES Final Result Performing Organization Address [facility] de Phone Number [facility] [address] [place] [address] * HEPATITIS B SURFACE ANTIBODY (12/06/2020 9:00 EST) Pathologist [facility] Hep B Surface Ab, Qualitative 0 12/06/2020 14:51 EST [facility] Comment: ?Interpretative Guidelines < 5.00 mIU/mL = ?Negative Clinical Interpretation of Immune Status: Patient is considered to be not immune to infection with HBV. The results of this assay can be falsely lowered due to the consumption of Biotin. Blood VENOUS BLOOD / Unknown 12/06/2020 9:00 EST 12/06/2020 13:39 EST Carlee Castillo [facility] CHEMISTRY & BLOOD GAS ORDERABLES Final Result Performing Organization Address [facility] [address] [place] [address] * MUMPS ANTIBODY IGG (12/06/2020 9:00 EST) Pathologist [facility] Mumps Ab, IgG, S Positive Negative 12/06/2020 23:47 EST [facility] Comment:Presumed immune to M umps infection. Blood VENOUS BLOOD / Unknown 12/06/2020 9:00 EST 12/06/2020 13:39 EST Carlee Castillo [facility] IMMUNOLOGY AND SEROLOGY ORDERABL ES Final Result Performing Organization Address [facility] de Phone Number [facility] [address] [place] [address] * MEASLES IGG AB (12/06/2020 9:00 EST) RUBEOLA IGG ANTIBODY - [facility] Positive Negative 12/06/2020 23:48 EST [facility] Comment:Presumed immune to M easles infection. Blood VENOUS BLOOD / Unknown 12/06/2020 9:00 EST 12/06/2020 13:39 EST Carlee Castillo DNP IMMUNOLOGY AND SEROLOGY ORDERABL ES Final Result [facility] [address] [place] [address] * RUBELLA IGG ANTIBODY (12/06/2020 9:00 EST) RUBELLA IGG ANTIBODY - [facility] Positive 12/06/2020 22:52 EST [facility] Comment: Expected value: Positive The presence of Rubella IgG suggest immunity against rubella Blood VENOUS BLOOD / Unknown 12/06/2020 9:00 EST 12/06/2020 13:39 EST Carlee Castillo DNP CHEMISTRY & BLOOD GAS ORDERABLES Final Result Performing Organization Address City/[facility] Co de Phone Number [facility] [address] [place] [phone] documented in this encounter Visit Diagnoses Diagnosis Essential (primary) hypertension- Primary Unspecified essential hypertension Immunization deficiency Personal history of underimmunization status Mixed hyperlipidemia documented in this encounter Orders Immunization/Injection Count Last Ordered Date First Ordered Date TD (ADULT) 2 LF VACCINE =>9YO IM 1 12/06/19 21 documented in this encounter Care Teams Commercial Installer Relationship Specialty Start Date End Date Carlee Castillo DNP [address] [place] [id number] PCP - General 10/25/19 07/20/23 documented as of this encounter
--- OUTSIDE RECORDS SUMMARY | 2024-11-27 15:43 | XMS_ITS | Encounter Summary ---
Author Organization [facility] Address [address] [place] [address] Care Team Providers Care Crew Director Name Role Phone Carlee Castillo DNP Primary Care Provider [phone] Reason for Visit * Reason Comments Annual Exam Encounter Details Date Type Department Care Team (Late st Contact Info) Description 01/08/2020 9:20 EST Office Visit [facility] [address] [address] Carlee Castillo DNP [address] [place] [address] [phone] Annual physical exam (Primary Dx); Screening, lipid; Screening for diabetes mellitus; Need for Td vaccine Social History Tobacco Use Types Packs/Day Years Used Date Smoking Tobacco: Former Smokeless Tobacco: Never Sex and Gender Information Value Date Recorded Sex Assigned at Male 10/24/2024 7:41 EST Legal Sex Male 18:41 EST Gender Identity Male 01/03/2020 14:38 EST Sexual Orientation Not on file documented as of this encounter Last Filed Vital Signs Vital Sign Reading Time Taken Comments Blood Pressure 132/88 01/08/2020 0913 EST Pulse 58 01/08/2020 0913 EST Temperature - - Respiratory Rate 16 01/08/2020 0913 EST Oxygen Saturation - - Inhaled Oxygen Concentration - - Weight 91.2 kg (201 lb) 01/08/2020 0913 EST Height 174 cm (5' 8.5) 01/08/2020 0913 EST Body Mass Index 30.11 01/08/2020 0913 EST documented in this encounter Progress Notes * Deidra TomasSHERRY - 01/08/2020 0920 EST Due for Td. - CD * Carlee Castillo APRN - 01/08/2020 0920 EST [facility] COMPLAINT: Chief Complaint Patient presents with ??? Annual Exam HPI: Mike Stovall, a 44 y.o. male is here today for a Health Maintenance Exam. Colonoscopy: at age 52 Labs: Drawn 01/08/20 Immunizations: Due for Td Patient Active Problem List Diagnosis ??? Mixed hyperlipidemia ??? Essential (primary) hypertension ??? Eczema ??? BMI 30.0-30.9,adult Current Outpatient Medications on File Prior to Visit Medication Sig Dispense Refill ??? fluocinonide (LIDEX) 0.05 % cream 1 linda applied topically 3 times a day 1 Tube 0 ??? ibuprofen (MOTRIN) 400 mg tablet Take 1 Tab by mouth every 6 hours. ??? lisinopril (PRINIVIL) 40 mg tablet 1 tab(s) orally once a day 90 Tab 0 ??? pseudoephedrine (SUDAFED) 30 mg tablet Take 1 Tab by mouth every 6 hours. ??? rosuvastatin (CRESTOR) 20 mg tablet 1 tab(s) orally once a day (at bedtime) 90 Tab 0 No current facility-administered medications on file prior to visit. No Known Allergies Past Medical History: Diagnosis Date ??? 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 Eczema ??? Facial basal cell cancer ??? Hemangioma 12/29/2019 ??? History of basal cell cancer 12/29/2019 ??? Hyperlipemia ??? Hypertension Family History Problem Relation Age of Onset ??? Myelodysplastic syndrome Mother ??? Depression Sister ??? Anxiety Disorder Sister Social History Tobacco Use ??? Smoking status: Former Smoker ??? Smokeless tobacco: Never Used Substance Use Topics ??? Alcohol use: Not on file ??? Drug use: Not on file Behavioral Health Screen PHQ-2 Little interest or pleasure in doing things?: Not at all Feeling down, depressed, or hopeless?: Not at all PHQ-2 SUBTOTAL: 0 JASMIN-2 Feeling nervous, anxious, or on edge?: several days Not being able to stop or control worrying?: not at all JASMIN-2 SUBTOTAL: 1 SASQ How many times in the past year have you had 5 or more drinks in a single day?: Never Prescription Misuse How many times in the past year have you used an illegal drug or used a prescription medication fornon-medical reasons?: Never DAST-10 Review of Systems Constitutional: Negative for chills, fever, malaise/fatigue and weight loss. HENT: Negative for congestion and hearing loss. Eyes: Negative for blurred vision and pain. Respiratory: Negative for cough and shortness of breath. Cardiovascular: Negative for chest pain and palpitations. Gastrointestinal: Negative for abdominal pain, constipation, diarrhea, heartburn and nausea. Genitourinary: Negative for dysuria and frequency. Musculoskeletal: Negative for joint pain and myalgias. Skin: Negative for itching and rash. Neurological: Negative for dizziness and headaches. Psychiatric/Behavioral: Negative for depression. The patient is not nervous/anxious and does not have insomnia. PHYSICAL EXAMINATION: Objective: Vitals: BP 132/88 Pulse 58 Resp 16 Ht 174 cm (68.5) Wt 91.2 kg (201 lb) BMI 30.11 kg/m?? General Exam: GENERAL APPEARANCE: no acute distress, pleasant, cooperative. HEENT EYES:, conjunctiva clear, EARS:, TM's normal, NOSE:, unremarkable, THROAT:, pharynx and tonsils normal. ORAL CAVITY: no lesions. NECK: supple, no lymphadenopathy, no thyromegaly. CHEST: normal shape and expansion. HEART: normal S1S2, no murmurs. LUNGS: clear to auscultation, unlabored. ABDOMEN: soft, NT/ND, BS present, no masses felt, no hepatosplenomegaly. EXTREMITIES: no clubbing, no cyanosis, no edema. PERIPHERAL PULSES: lower extremity pulse, 2+, bilaterally. MUSCULOSKELETAL: no abnormality noted. SKIN: warm & dry. FACE: no lesions. NEUROLOGIC EXAM: alert & oriented x3, gait normal. PSYCH: Appropriate. Labs: Results for orders placed or performed in visit on 01/07/20 (from the past 168 hour(s)) LIPID PROFILE (INCLUDES CHOLESTEROL, TRIGLYCERIDES, HDL, LDL) Collection Time: 01/07/20 8:17 Result Value Ref Range Triglyceride 365 <150 mg/dL Cholesterol 206 (H) <200 mg/dL Chol/HDL Ratio 4.9 0 - 5.0 FASTING? - [facility] [place] [place] Yes HDL 42 40 - 60 mg/dL LDL CHOLESTEROL - [facility] 91 60 - 100 mg/dL Non HDL Cholesterol 164 mg/dl Results for orders placed or performed in visit on 01/07/20 (from the past 168 hour(s)) BASIC METABOLIC PANEL (BMP) Collection Time: 01/07/20 8:17 Result Value Ref Range BUN - [facility] 15 10 - 26 mg/dL CALCIUM - [facility] 9.5 8.5 - 10.5 mg/dL Chloride 104 96 - 110 mmol/L CO2 Total 27 21 - 32 mEq/L Creatinine 0.91 0.66 - 1.25 mg/dL eGFR >60 Anion Gap 10 0 - 18 GLUCOSE - [facility] [place] 102 (H) 70 - 100 mg/dL Potassium 5.2 (H) 3.5 - 5.0 mEq/L Sodium 141 136 - 145 mEq/L IMPRESSION/PLAN: 1. Annual physical exam 2. Screening, lipid 3. Screening for diabetes mellitus 4. Need for Td vaccine 1. Annual physical exam - BASIC METABOLIC PANEL (BMP); Future Preventive care discussed. Td today. Labs reviewed. Glucose slightly above goal. Strategies to prevent diabetes discussed. Continue healthy diet, regular exercise, and stress management. 2. Screening, lipid - LIPID PROFILE (INCLUDES CHOLESTEROL, TRIGLYCERIDES, HDL, LDL); Future Triglycerides about goal; likely from being off statin. 3. Screening for diabetes mellitus - BASIC METABOLIC PANEL (BMP); Future documented in this encounter Plan of Treatment Not on file documented as of this encounter Visit Diagnoses Diagnosis Annual physical exam- Primary Routine general medical examination at a health care facility Screening, lipid Screening for lipoid disorders Screening for diabetes mellitus Need for Td vaccine Need for prophylactic vaccination with tetanus-diphtheria (Td) documented in this encounter Discontinued Medications Medication Sig Discontinue Reason Start Date End Da te amoxicillin-clavulanate (AUGMENTIN) 875-125 mg per tablet Take 1 Tab by mouth every 12 hours. Abstraction 08/22/2019 01/08/2020 guaiFENesin (MUCINEX) 600 mg SR tablet Take 600 mg by mouth every 12 hours. Abstraction 01/08/2020 documented as of this encounter Orders Immunization/Injection Count Last Ordered Date First Ordered Date TD (ADULT) 2 LF VACCINE =>7YO IM 1 01/08/20 20 documented in this encounter Care Teams Crew Director Relationship Specialty Start Date End Date Carlee Castillo DNP [address] [place] [id number] PCP - General 10/25/19 07/20/23 documented as of this encounter
--- OUTSIDE RECORDS SUMMARY | 2024-11-27 15:43 | XMS_ITS | Encounter Summary ---
Author Organization [facility] Address [address] [place] [address] Care Team Providers Care Ore Roaster Name Role Phone Carlee Castillo DNP Primary Care Provider [phone] Encounter Details Date Type Department Care Team (Latest Contact Info) Description 04/18/2021 Travel Social History Tobacco Use Types Packs/Day [...] have Coronavirus / COVID-19? No / Unsure 04/18/2021 14:56 EDT documented as of this encounter Plan of Treatment Not on file documented as of this encounter Visit Diagnoses Not on filedocumented in this encounter Care Teams Ore Roaster Relationship Specialty Start Date End Date Carlee Castillo DNP [address] [place] [id number] PCP - General 10/25/19 07/20/23 documented as of this encounter
--- OUTSIDE RECORDS SUMMARY | 2024-11-27 15:43 | XMS_ITS | Encounter Summary ---
Author Organization [facility] Address [address] [place] [address] Care Team Providers Care Rehabilitation Services Aide Name Role Phone Dennis Cooper MD Primary Care Provider [phone] Encounter Details Date Type Department Care Team (Late st Contact Info) Description 08/19/2018 Historical Results Only [facility] - Main [address] [address] Raymundo Brothers MD [address] [place] [phone] Social History Tobacco Use Types Packs/Day Years Used Date Smoking Tobacco: Never Assessed Sex and Gender Information Value Date Recorded Sex Assigned at Male 10/24/2024 7:41 EST Legal Sex Male 18:41 EST Gender Identity Male 01/03/2020 14:38 EST Sexual Orientation Not on file documented as of this encounter Plan of Treatment Not on file documented as of this encounter Procedures Procedure Name Priority Date/Time Associated Diagnosis Comments COMPREHENSIVE METABOLIC PANEL (CMP) Routine 08/19/2018 9:13 EDT documented in this encounter Results * COMPREHENSIVE METABOLIC PANEL (CMP) (08/19/2018 9:13 EDT) Albumin % 4.9 3.4 - 4.9 g/dL 08/19/2018 10:22 EDT [facility] ALKALINE PHOSPHATASE - [facility] 41 38 - 126 U/L 08/19/2018 10:22 EDT [facility] BILIRUBIN TOTAL 0.5 0.2 - 1.3 mg/dL 08/19/2018 10:22 [facility] BUN - [facility] 11 10 - 26 mg/dL 08/19/2018 10:22 [facility] CALCIUM - [facility] 9.5 8.5 - 10.5 mg/dL 08/19/2018 10:22 [facility] Chloride 101 96 - 110 mmol/L 08/19/2018 10:22 [facility] CO2 Total 25 21 - 32 mEq/L 08/19/2018 10:22 [facility] CREATININE 0.83 0.66 - 1.25 mg/dL 08/19/2018 10:22 [facility] eGFR >60 08/19/2018 10:22 [facility] Comment: Chronic renal impairment is defined as GFR <60 Multiply result by 1.210 for patients. Anion Gap 14 0 - 18 08/19/2018 10:22 [facility] GLUCOSE - [facility] 89 70 - 100 mg/dL 08/19/2018 10:22 [facility] Potassium 4.6 3.5 - 5.0 mEq/L 08/19/2018 10:22 [facility] Sodium 140 136 - 145 mEq/L 08/19/2018 10:22 [facility] TOTAL PROTEIN - [facility] 7.6 6.2 - 8.2 gm/dL 08/19/2018 10:22 [facility] SGOT/AST - [facility] 34 17 - 59 U/L 08/19/2018 10:22 [facility] SGPT/ALT - [facility] 59 21 - 72 U/L 08/19/2018 10:22 [facility] 08/19/2018 9:13 EDT 08/19/2018 9:13 [facility] Narrative [facility] - 08/19/2018 10:22 EDT Does PT Have a Latex Allergy? NO us Raymundo Brothers MD CHEMISTRY & BLOOD GAS ORDERABLE S Final Result [facility] documented in this encounter Visit Diagnoses Not on filedocumented in this encounter Care Teams Rehabilitation Services Aide Relationship Specialty Start Date End Date Dennis Cooper MD [address] [place] [address] PCP - General 01/29/14 10/24/19 documented as of this encounter
--- OUTSIDE RECORDS SUMMARY | 2024-11-27 15:43 | XMS_ITS | Encounter Summary ---
Author Organization [facility] Address [address] [place] [address] Care Team Providers Care Cheese Tester Name Role Phone Carlee Castillo DNP Primary Care Provider [phone] Reason for Visit * Reason Comments Hypertension Encounter Details Date Type Department Care Team (Latest Contact Info) Description 07/08/2020 9:20 EDT Office Visit [facility] [address] [address] Carlee Castillo DNP [address] [place] [phone] Essential (primary) hypertension (Primary Dx); Mixed [...] Sign Reading Time Taken Comments Blood Pressure 126/78 07/08/2020909 EDT Pulse 60 07/08/2020909 EDT Temperature 36.8 ??C (98.2 ??F) 07/08/2020909 EDT Respiratory Rate 16 07/08/2020909 EDT Oxygen Saturation 98% 07/08/2020909 EDT Inhaled Oxygen Concentration - - Weight 91.7 kg (202 lb 3.2 oz) 07/08/2020909 E DT Height 174 cm (5' 8.5) 07/08/2020909 EDT Body Mass Index 30.29 07/08/2020909 EDT documented in this encounter Ordered Prescriptions Prescription Sig Dispense Quantity Refills Last Filled Start Date End Date lisinopriL (PRINIVIL) 40 mg tabletIndications:Es sential (primary) hypertension 1 tab(s) orally once a day 90 Tab 3 07/08/2020 0 rosuvastatin (CRESTOR) 20 mg tabletIndications:Mi xed hyperlipidemia 1 tab(s) orally once a day (at bedtime) 90 Tab 3 07/08/2020 0 documented in this encounter Progress Notes * Carlee Castillo APRN - 07/08/2020 0920 EDT [facility] Primary Care Subjective: Chief Complaint(s): Hypertension HPI Hypertension: Mike is here for hypertension follow up. He is taking lisinopril 40mg daily. Last appointment 01/08/2020 BP 132/88 Hypertension medication compliance: compliant. Med side effects: none. Exercise: Enjoys running, has fallen out of the habit recently. Diet: healthy Weight changes: None * starts prerequisites for nursing school fall 2019. Will attend [employer] program at [employer]. I have reviewed patient's tobacco history: reports [...] Tab by mouth every 6 hours. ??? pseudoephedrine (SUDAFED) 30 mg tablet Take 1 Tab by mouth every 6 hours. No current facility-administered medications on file prior to visit. Review of Systems Constitutional: Negative for unexpected weight change. Respiratory: Negative for cough and shortness of breath. Cardiovascular: Negative for chest pain and leg swelling. Objective: Examination: Vitals: BP 126/78 Pulse 60 Temp 36.8 ??C (98.2 ??F) Resp 16 Ht 174 cm (68.5) Wt 91.7 kg (202 lb 3.2 oz) SpO2 98% BMI 30.29 kg/m?? Body mass index is 30.29 kg/m??. Physical Exam GENERAL APPEARANCE: no acute distress, pleasant, cooperative. HEENT EYES:, conjunctiva clear. NECK: supple LUNGS: unlabored SKIN: warm & dry. NEUROLOGIC EXAM: alert & oriented x3 PSYCH: mood appropriate, affect full range Data reviewed with patient (past results): Reviewed and/or ordered active problem list, medication list, allergies, social history, health maintenance, notes from last encounter tests Assessment & Plan: 1. Essential (primary) hypertension Blood pressure reviewed, at goal. Continue lisinopril 40 mg daily. Annual renal function and electrolytes ordered due in December. Will complete with fasting lipid panel. Regular aerobic exercise recommended. 2. Mixed hyperlipidemia Continue Crestor 20 mg daily. Fasting lipid panel in December. Continue healthy diet. Return in about 6 months (around 01/08/2021) for HTN. documented in this encounter Plan of Treatment Not on file documented as of this encounter Visit Diagnoses Diagnosis Essential (primary) hypertension- Primary Unspecified essential hypertension Mixed hyperlipidemia documented in this encounter Discontinued Medications Medication Sig Discontinue Reason Start Date End Da te rosuvastatin (CRESTOR) 20 mg tabletIndications:Mixed hyperlipidemia 1 tab(s) orally once a day (at bedtime) Reorder 04/12/2020 07/08/2020 lisinopriL (PRINIVIL) 40 mg tabletIndications:Essentia l (primary) hypertension 1 tab(s) orally once a day Reorder 04/16/2020 07/08/2020 documented as of this encounter Care Teams Cheese Tester Relationship Specialty Start Date End Date Carlee Castillo DNP [address] [place] [id number] PCP - General 10/25/19 07/20/23 documented as of this encounter
--- OUTSIDE RECORDS SUMMARY | 2024-11-27 15:43 | XMS_ITS | Encounter Summary ---
Author Organization [facility] Address [address] [place] [address] Care Team Providers Care Catalyst Supervisor Name Role Phone Carlee Castillo DNP Primary Care Provider [phone] Encounter Details Date Type Department Care Team (Late st Contact Info) Description 08/14/[address] [facility] [address] [address] Carlee Castillo DNP [address] [place] [address] Social History Tobacco Use Types Packs/Day Years [...] Diagnosis Comments HEPATITIS B SURFACE ANTIBODY Routine 08/14/2021 13:42 EDT documented in this encounter Results * HEPATITIS B SURFACE ANTIBODY (08/14/2021 13:42 EDT) Hep B Surface Ab, Qualitative 506 08/14/2021 15:59 EDT [facility] Comment: ? Interpretative Guidelines >=12.00 mIU/mL ??= Positive Clinical Interpretation of Immune Status: Anti-HBs detected at >10 mIU/mL. Patient is considered to be immune to infection with HBV. ??It has not been determined what the clinical significance is for values greater than or = 12 mIU/mL, other than the individual is considered to be immune to HBV infection. The results of this assay can be falsely lowered due to the consumption of Biotin. 08/14/2021 13:4 2 EDT 08/14/2021 13:50 EDT Narrative [facility] - 08/14/2021 15:59 EDT Does PT Have a Latex Allergy? NO Carlee Castillo DNP CHEMISTRY & BLOOD GAS ORDERABLES Final Result Performing Organization Address City/State/[facility] Co de Phone Number [facility] [address] [place] [address] documented in this encounter Visit Diagnoses Not on filedocumented in this encounter Care Teams Catalyst Supervisor Relationship Specialty Start Date End Date Carlee Castillo DNP [address] [place] [phone] PCP - General 10/25/19 07/20/23 documented as of this encounter
--- OUTSIDE RECORDS SUMMARY | 2024-11-27 15:43 | XMS_ITS | Encounter Summary ---
Author Organization [facility] Address [address] [place] [address] Care Team Providers Care Director Of Player Personnel Name Role Phone Carlee Castillo DNP Primary Care Provider [phone] Encounter Details Date Type Department Care Team (Late st Contact Info) Description 12/14/2019 Abstract [facility] [address] [place] [address] Ambulatory, Business Operations Consultant Social History Tobacco Use Types Packs/Day Years [...] Diagnoses Not on filedocumented in this encounter Historical Medications * This list may reflect changes made after this encounter. pseudoephedrine (SUDAFED) 30 mg tablet Take 1 Tab by mouth every 6 hours. 06/03/2021 amoxicillin-clavu lanate (AUGMENTIN) 875-125 mg per tablet Take 1 Tab by mouth every 12 hours. 08/22/2019 01/08/2020 guaiFENesin (MUCINEX) 600 mg SR tablet Take 600 mg by mouth every 12 hours. 01/08/2020 ibuprofen (MOTRIN) 400 mg tablet Take 1 Tab by mouth every 6 hours. 03/30/2022 added in this encounter Care Teams Director Of Player Personnel Relationship Specialty Start Date End Date Carlee Castillo DNP [address] [place] [id number] PCP - General 10/25/19 07/20/23 documented as of this encounter
--- OUTSIDE RECORDS SUMMARY | 2024-11-27 15:43 | XMS_ITS | Encounter Summary ---
Author Organization [facility] Address [address] [place] [address] Care Team Providers Care Hand Former Name Role Phone Carlee Castillo DNP Primary Care Provider [phone] Reason for Visit * Reason Onset Date Comments Medications Refill 04/12/2020 Encounter Details Date Type Department Care Team (Late st Contact Info) Description 04/12/2020 Telephone [facility] [address] [phone] Carlee Castillo DNP [address] [place], [place] [phone] Medications Refill Social History Tobacco Use Types [...] a day (at bedtime) 90 Tab 3 04/12/2020 0 documented in this encounter Miscellaneous Notes * Telephone Encounter - Deidra Tomas RN - 04/12/2020 1351 EDT [facility] - 01/08/20 NOV - 07/08/20 last lipids - 01/07/20 Rx(s) escribed to pharmacy. DEIDRA MELVIN-KITE, RN * Telephone Encounter - Genevieve Pederson - 04/12/2020 1345 EDT Received faxed refill request from [facility]: Rosuvastatin calcium 20 mg tab 20 documented in this encounter Plan of Treatment Not on file documented as of this encounter Visit Diagnoses Diagnosis Mixed hyperlipidemia- Primary documented in this encounter Discontinued Medications Medication Sig Discontinue Reason Start Date End Da te rosuvastatin (CRESTOR) 20 mg tabletIndications:Mixed hyperlipidemia 1 tab(s) orally once a day (at bedtime) Reorder 11/09/2019 04/12/2020 documented as of this encounter Care Teams Hand Former Relationship Specialty Start Date End Date Carlee Castillo DNP [address] [place] [id number] PCP - General 10/25/19 07/20/23 documented as of this encounter
--- OUTSIDE RECORDS SUMMARY | 2024-11-27 15:43 | XMS_ITS | Encounter Summary ---
Author Organization [facility] Address [address] [place] [address] Care Team Providers Care Fitness Sales Consultant Name Role Phone Carlee Castillo DNP Primary Care Provider Encounter Details Date Type Department Care Team (Latest Contact Info) Description 07/07/2021 Travel Social History Tobacco Use Types Packs/Day [...] have Coronavirus / COVID-19? No / Unsure 07/07/2021 8:06 EDT documented as of this encounter Plan of Treatment Not on file documented as of this encounter Visit Diagnoses Not on filedocumented in this encounter Care Teams Fitness Sales Consultant Relationship Specialty Start Date End Date Carlee Castillo DNP [address] [place] [phone] PCP - General 10/25/19 07/20/23 documented as of this encounter
--- OUTSIDE RECORDS SUMMARY | 2024-11-27 15:43 | XMS_ITS | Encounter Summary ---
Author Organization [facility] Address [address] [place] [address] Care Team Providers Care Cooking Show Host Name Role Phone Carlee Castillo DNP Primary Care Provider [phone] Encounter Details Date Type Department Care Team (Latest Contact Info) Description 10/30/2021 8:50 EST Phlebotomy Only [facility] - Outpatient Phlebotomy Drawing [address] [place], [place] [id number] Lab, [facility] Op Phlebotomy Routine screening for STI (sexually transmitted infection); Primary hypertension; Pure hypercholesterolemia Social History Tobacco Use Types Packs/Day Years [...] Procedure Name Priority Date/Time Associated Diagnosis Comments CHLAMYDIA/N. GONORRHOEAE AMPLIFIED NUCLEIC ACID Routine 10/30/2021 8:52 EST Routine screening for STI (sexually transmitted infection) SYPHILIS RPR SCREEN W/REFLEX Routine 10/30/2021 8:51 EST Routine screening for STI (sexually transmitted infection) HEPATITIS C AB W REFLEX TO HCV RNA BY PCR Routine 10/30/2021 8:51 EST Routine screening for STI (sexually transmitted infection) HIV 1/2 ANTIGEN AND ANTIBODY, 4TH GENERATION Routine 10/30/2021 8:51 EST Routine screening for STI (sexually transmitted infection) LIPID PROFILE (INCLUDES CHOLESTEROL, TRIGLYCERIDES, HDL, LDL) Routine 10/30/2021 8:51 EST Pure hypercholesterolemia COMPREHENSIVE METABOLIC PANEL (CMP) Routine 10/30/2021 8:51 EST Primary hypertension documented in this encounter Results * CHLAMYDIA/N. GONORRHOEAE AMPLIFIED RNA (10/30/2021 8:52 EST) Neisseria gonorrhoeae Result Negative Negative 10/30/2021 12:18 EST [facility] Chlamydia trachomatis Result Negative Negative 10/30/2021 12:18 EST [facility] Urine URINE / Unknown Urine Collect / Unknown 10/30/2021 8:52 EST 10/30/2021 10:14 EST Narrative [facility] - 10/30/2021 12:18 EST ? ? Xpert CT/NG Assay performance has not been evaluated in patients less than 14 years of age. us Carlee Castillo DNP MICROBIOLOGY - GENERAL ORDERABLE S Final Result [facility] [address] [place] [address] * LIPID PROFILE (INCLUDES CHOLESTEROL, TRIGLYCERIDES, HDL, LDL) (10/30/2021 8:51 EST) [facility] Signature Cholesterol 207 See Note mg/dL 10/30/2021 10:45 [facility] Comment: Acceptable: ?<200 mg/dL Borderline High: 200-239 mg/dL High: ?> or = 240 mg/dL HDL 54 See Note mg/dL 10/30/2021 10:45 [facility] Comment: Low: ? <40 mg/dL Normal: ??40-60 mg/dL High: ?>60 mg/dL LDL, Calculated 121 See Note mg/dL 10/30/2021 10:45 [facility] Comment: Optimal: ? <100 mg/dL Near Optimal: ?100-129 mg/dL Borderline High: 130-159 mg/dL High: ?160-189 mg/dL Very High: ? > or = 190 mg/dL Triglyceride 160 See Note mg/dL 10/30/2021 10:45 [facility] Comment: Normal: ? <150 mg/dL Borderline High: ??150 - 199 mg/dL High: ? 200 - 499 mg/dL Very High: ?> or = 500 mg/dL Chol/HDL Ratio 3.8 See Note 10/30/2021 10:45 [facility] Comment: NOTE: Desirable Ratio = <4.1 Patient At Risk Ratio = >5.0(Males) ?>6.0(Females) Non HDL Cholesterol 153 See Note mg/dL 10/30/2021 10:45 [facility] Comment: Desirable: ?<130 mg/dL Borderline High: ??130-159 mg/dL High: ? 160-189 mg/dL Very High: ?> or = 190 mg/dL Blood VENOUS BLOOD / Unknown Venipuncture / Unknown 10/30/2021 8:51 EST 10/30/2021 10:14 EST Carlee Castillo DNP CHEMISTRY & BLOOD GAS ORDERABLES Final Result [facility] [address] [place] [address] * (ABNORMAL) COMPREHENSIVE METABOLIC PANEL (CMP) (10/30/2021 8:51 EST) Sodium 137 136 - 145 mmol/L 10/30/2021 10:45 [facility] Potassium 4.7 3.5 - 5.0 mmol/L 10/30/2021 10:45 [facility] Chloride 96 96 - 110 mmol/L 10/30/2021 10:45 [facility] CO2 Total 27 22 - 32 mmol/L 10/30/2021 10:45 [facility] Glucose 94 70 - 100 mg/dL 10/30/2021 10:45 [facility] BUN 15 10 - 26 mg/dL 10/30/2021 10:45 [facility] Creatinine 0.91 0.66 - 1.25 mg/dL 10/30/2021 10:45 [facility] eGFR 102 >60 mL/min/1.7 3m2 10/30/2021 10:45 [facility] Total Protein 8.4(H) 6.3 - 8.2 g/dL 10/30/2021 10:45 [facility] Albumin 5.1(H) 3.4 - 4.9 g/dL 10/30/2021 10:45 [facility] Alkaline Phosphatase 40 38 - 126 U/L 10/30/2021 10:45 [facility] AST 39 15 - 46 U/L 10/30/2021 10:45 [facility] ALT 51(H) <50 U/L 10/30/2021 10:45 [facility] Bilirubin, Total 0.6 <1.4 mg/dL 10/30/20 10:45 [facility] Calcium 9.9 8.5 - 10.5 mg/dL 10/30/2021 10:45 [facility] Albumin/Globulin Ratio 1.5 1.0 - 2.5 10/30/2021 10:45 [facility] Anion Gap 14 8 - 16 10/30/2021 10:45 [facility] Blood VENOUS BLOOD / Unknown Venipuncture / Unknown 10/30/2021 8:51 EST 10/30/2021 10:14 EST Carlee Castillo [facility] CHEMISTRY & BLOOD GAS ORDERABLES Final Result Performing Organization Address City/[facility] Co de Phone Number [facility] [address] [place] [address] * SYPHILIS RPR SCREEN W/REFLEX (10/30/2021 8:51 EST) Rapid Plasma Reagin Screen (RPR) Nonreactive Nonreactive 11/06/2021 8:19 EST [facility] Blood VENOUS BLOOD / Unknown Venipuncture / Unknown 10/30/2021 8:51 EST 10/30/2021 10:14 EST Carlee Castillo [facility] IMMUNOLOGY AND SEROLOGY ORDERABL ES Final Result Performing Organization Address [facility] Co de Phone Number [facility] [address] [place] [address] * HIV 1/2 ANTIGEN AND ANTIBODY, 4TH GENERATION (10/30/2021 8:51 EST) HIV 1 and 2 Antibody/p24 Antigen, 4th Generation Negative Negative 10/30/2021 11:34 EST [facility] Comment:If acute HIV-1 infec tion is suspected in a high risk patient, submit plasma specimen for HIV-1 RNA quantitation test. Blood VENOUS BLOOD / Unknown Venipuncture / Unknown 10/30/2021 8:51 EST 10/30/2021 10:34 EST us Carlee Castillo DNP IMMUNOLOGY AND SEROLOGY ORDERABL ES Final Result Performing Organization Address City/[facility]/ZIP Co de Phone Number [facility] [address] [place] [address] * HEPATITIS C AB W REFLEX TO HCV RNA BY PCR (10/30/2021 8:51 EST) Hep C Antibody Negative Negative 10/30/2021 11:38 EST [facility] Blood VENOUS BLOOD / Unknown Venipuncture / Unknown 10/30/2021 8:51 EST 10/30/2021 10:14 EST us Carlee Castillo DNP CHEMISTRY & BLOOD GAS ORDERABLES Final Result Performing Organization Address City/[facility] Co de Phone Number [facility] [address] [place] [address] documented in this encounter Visit Diagnoses Diagnosis Routine screening for STI (sexually transmitted infection) Screening examination for venereal disease Primary hypertension Unspecified essential hypertension Pure hypercholesterolemia documented in this encounter Care Teams Cooking Show Host Relationship Specialty Start Date End Date Carlee Castillo DNP [address] [place] [address] PCP - General 10/25/19 07/20/23 documented as of this encounter
--- OUTSIDE RECORDS SUMMARY | 2024-11-27 15:43 | XMS_ITS | Encounter Summary ---
Author Organization [facility] Address [address] [place] [address] Care Team Providers Care Firearms Expert Name Role Phone Carlee Castillo DNP Primary Care Provider [phone] Encounter Details Date Type Department Care Team (Latest Contact Info) Description 12/06/2020 Travel Social History Tobacco Use Types Packs/Day [...] 8:15 EST documented as of this encounter Plan of Treatment Not on file documented as of this encounter Visit Diagnoses Not on filedocumented in this encounter Care Teams Firearms Expert Relationship Specialty Start Date End Date Carlee Castillo DNP [address] [place] [address] PCP - General 10/25/19 07/20/23 documented as of this encounter
--- OUTSIDE RECORDS SUMMARY | 2024-11-27 15:43 | XMS_ITS | Encounter Summary ---
Author Organization [facility] Address [address] [place] [address] Care Team Providers Care Boiler Attendant Name Role Phone Carlee Castillo DNP Primary Care Provider [phone] Reason for Visit * Reason Comments Immunizations Encounter Details Date Type Department Care Team (Late st Contact Info) Description 01/03/2021 8:00 EST Nurse Only [facility] [address] [address] Nurse, [facility] Need for vaccination (Primary Dx) Social History Tobacco Use Types [...] Pressure - - Pulse - - Temperature 36.8 ??C (98.3 ??F) 01/03/2021 0758 EST Respiratory Rate - - Oxygen Saturation - - Inhaled Oxygen Concentration - - Weight - - Height - - Body Mass Index - - documented in this encounter Progress Notes * Katie Carranza RN - 01/03/2021 0800 EST Here for Hep B#1 VIS given; SE reviewed and ?'s answered. documented in this encounter Plan of Treatment Not on file documented as of this encounter Visit Diagnoses Diagnosis Need for vaccination- Primary Need for prophylactic vaccination and inoculation against unspecified single disease documented in this encounter Orders Immunization/Injection Count Last Ordered Date First Ordered Date HEPATITIS B VACCINE ADULT IM 1 01/03/2021 documented in this encounter Care Teams Boiler Attendant Relationship Specialty Start Date End Date Carlee Castillo DNP [address] [place] [address] PCP - General 10/25/19 07/20/23 documented as of this encounter
--- OUTSIDE RECORDS SUMMARY | 2024-11-27 15:43 | XMS_ITS | Encounter Summary ---
Author Organization [facility] Address [address] [place] [address] Care Team Providers Care Perinatal Educator Name Role Phone Carlee Castillo DNP Primary Care Provider [phone] Encounter Details Date Type Department Care Team (Latest Contact Info) Description 04/16/2021 Travel Social History Tobacco Use Types Packs/Day [...] have Coronavirus / COVID-19? No / Unsure 04/16/2021 14:46 EDT documented as of this encounter Plan of Treatment Not on file documented as of this encounter Visit Diagnoses Not on filedocumented in this encounter Care Teams Perinatal Educator Relationship Specialty Start Date End Date Carlee Castillo DNP [address] [place] [address] PCP - General 10/25/19 07/20/23 documented as of this encounter
--- OUTSIDE RECORDS SUMMARY | 2024-11-27 15:43 | XMS_ITS | Encounter Summary ---
Author Organization [facility] Address [address] [place] [address] Care Team Providers Care Rail Setter Name Role Phone Carlee Castillo DNP Primary Care Provider [phone] Reason for Visit * Reason Comments Immunizations Encounter Details Date Type Department Care Team (Late st Contact Info) Description 08/30/2020 10:45 EDT Nurse Only [address] [address] Nurse, [facility] Need for influenza vaccination (Primary Dx) Social History Tobacco Use [...] Taken Comments Blood Pressure - - Pulse 98 08/30/2020 1057 EDT Temperature - - Respiratory Rate - - Oxygen Saturation - - Inhaled Oxygen Concentration - - Weight - - Height - - Body Mass Index - - documented in this encounter Progress Notes * Sasha Galo LPN - 08/30/2020 1045 EDT No hx of allergic reaction to eggs , No hx of allergy to any vaccine component (Thimerosal), No hx of a serious reaction to a previous dose of Influenza Vaccine, No moderate-severe fever or other acute infection, No hx of Guillain- Hanover' Syndrome (GBS), No hx of allergy to Chicken protein, No hx ofallergy to neomycin/polymixin, and Not already immunized Jul-February (this current flu season) documented in this encounter Plan of Treatment Not on file documented as of this encounter Visit Diagnoses Diagnosis Need for influenza vaccination- Primary Need for prophylactic vaccination and inoculation against influenza documented in this encounter Orders Immunization/Injection Count Last Ordered Date First Ordered Date INFLUENZA VACCINE QUAD PF 0. 5 ML IM (6 MOS+) 1 08/30/2020 documented in this encounter Care Teams Rail Setter Relationship Specialty Start Date End Date Carlee Castillo DNP [address] [place] [address] PCP - General 10/25/19 07/20/23 documented as of this encounter
--- OUTSIDE RECORDS SUMMARY | 2024-11-27 15:43 | XMS_ITS | Encounter Summary ---
Author Organization [facility] Address [address] [place] [address] Care Team Providers Care Application Packager Name Role Phone Abby Castilloily JOSH Primary Care Provider [phone] Reason for Visit * Reason Onset Date Comments Medications Refill 11/09/2019 Medications Refill 12/01/2019 Encounter Details Date Type Department Care Team (Late st Contact Info) Description 11/09/2019 Refill [facility] [address] [address] Deidra Ott, RN Medications Refill; Medications Refill Social History Tobacco Use Types [...] once a day (at bedtime) 90 Tab 11/09/2019 0 documented in this encounter Miscellaneous Notes * Telephone Encounter - Deidra Ott, SHERRY - 12/01/2019 0919 EST Pt again requested rosuvastatin as well as 2 other meds via separate encounters. Velvet had conversedwith him via [email or web address] regarding the details, so I just sent him a [employer] msg that the refills were processed and to pls contact for scheduling. Hopefully this will get a better response. * Telephone Encounter - Clair Mcgee - 11/20/2019 1502 EST Lm #2 for pt. * Telephone Encounter - Clair Mcgee - 11/10/2019 1521 EST Lm for pt. * Telephone Encounter - Deidra Ott RN - 11/09/2019 1408 EST Refill rosuvastatin 20mg to [facility] - 07/29/18 NOV - none last lipids - 08/19/18 Rx escribed for 90 days NR. DEIDRA OTT RN Pls call pt to schedule PE. documented in this encounter Plan of Treatment Not on file documented as of this encounter Visit Diagnoses Diagnosis Mixed hyperlipidemia- Primary documented in this encounter Discontinued Medications Medication Sig Discontinue Reason Start Date End Da te rosuvastatin (CRESTOR) 20 mg tablet 1 tab(s) orally once a day (at bedtime) Reorder 06/18/2017 11/09/2019 documented as of this encounter Historical Medications * This list may reflect changes made after this encounter. rosuvastatin (CRESTOR) 20 mg tablet 1 tab(s) orally once a day (at bedtime) 06/18/2017 11/09/2019 added in this encounter Care Teams Application Packager Relationship Specialty Start Date End Date Carlee Castillo DNP [address] [place] [address] PCP - General 10/25/19 07/20/23 documented as of this encounter
--- OUTSIDE RECORDS SUMMARY | 2024-11-27 15:43 | XMS_ITS | Encounter Summary ---
Author Organization [facility] Address [address] [place] [address] Care Team Providers Care Gold Leaf Laborer Name Role Phone Carlee Castillo DNP Primary Care Provider [phone] Encounter Details Date Type Department Care Team (Late st Contact Info) Description 01/07/2020 Results Only [facility] [address] [address] Carlee Castillo DNP [address] [place], [place] [id number] Social History Tobacco Use Types Packs/Day Years [...] Procedure Name Priority Date/Time Associated Diagnosis Comments LIPID PROFILE (INCLUDES CHOLESTEROL, TRIGLYCERIDES, HDL, LDL) Routine 01/07/2020 8:17 EST documented in this encounter Results * (ABNORMAL) LIPID PROFILE (INCLUDES CHOLESTEROL, TRIGLYCERIDES, HDL, LDL) (01/07/2020 8:17 EST) Triglyceride 365 <150 mg/dL 01/07/2020 10:06 EST [facility] Comment: Adult: Normal: ?<150 mg/dl ? Borderline High: 150-199 mg/dl ? High: ?200-499 mg/dl ? Very High: >oz=778 Cholesterol 206(H) <200 mg/dL 01/07/2020 10:06 [facility] Comment: Acceptable: ??<200 Borderline: ??200-239 High: ?> or = 240 Chol/HDL Ratio 4.9 0 - 5.0 01/07/2020 10:06 [facility] Comment: DESIRABLE RATIO IS LESS THAN 4.1 PATIENTS ARE CONSIDERED AT RISK: WOMEN RATIO >5 MEN RATIO >6 FASTING? - [facility] Yes 0 8:19 [facility] HDL 42 40 - 60 mg/dL 01/07/2020 10:06 [facility] Comment: ?? Reference Range Low: ? < 40 ??mg/dL Normal: ??40-60 mg/dL High: ?>= 60 mg/dL LDL CHOLESTEROL - [facility] 91 60 - 100 mg/dL 01/07/2020 10:06 [facility] Non HDL Cholesterol 164 mg/dl 01/07/2020 10:06 [facility] Comment: Desirable: ?Less than 130 Borderline High: ??130-159 High: ? 160-189 Very High: ?Greater than or equal to 190 01/07/2020 8:17 EST 01/07/2020 8:18 EST Narrative [facility] - 01/07/2020 10:06 EST Does PT Have a Latex Allergy? NO us Carlee Castillo DNP CHEMISTRY & BLOOD GAS ORDERABLES Final Result [facility] documented in this encounter Visit Diagnoses Not on filedocumented in this encounter Care Teams Gold Leaf Laborer Relationship Specialty Start Date End Date Carlee Castillo DNP [address] [place] [id number] PCP - General 10/25/19 07/20/23 documented as of this encounter
--- OUTSIDE RECORDS SUMMARY | 2024-11-27 15:43 | XMS_ITS | Encounter Summary ---
Author Organization [facility] Address [address] [place] [address] Care Team Providers Care Duct Maker Name Role Phone Dennis Cooper MD Primary Care Provider [phone] Encounter Details Date Type Department Care Team (Late st Contact Info) Description 06/18/2017 Historical Results Only [facility] - Main [place] [address] [place], [place] [phone] Carlee Castillo DNP [address] [place] [phone] Social History Tobacco Use Types Packs/Day Years [...] Diagnosis Comments COMPREHENSIVE METABOLIC PANEL (CMP) Routine 06/18/2017 9:13 EDT documented in this encounter Results * COMPREHENSIVE METABOLIC PANEL (CMP) (06/18/2017 9:13 EDT) Albumin % 4.5 3.4 - 5.0 g/dL 06/18/2017 10:33 EDT [facility] ALKALINE PHOSPHATASE - [facility] 42 42 - 122 U/L 06/18/2017 10:33 EDT [facility] BILIRUBIN TOTAL 0.6 0.0 - 1.0 mg/dL 06/18/2017 10:33 [facility] BUN - [facility] 14 7 - 18 mg/dL 06/18/2017 10:33 [facility] CALCIUM - [facility] 9.3 8.5 - 10.1 mg/dL 06/18/2017 10:33 [facility] Chloride 103 98 - 107 mEq/L 06/18/2017 10:33 [facility] CO2 Total 28 21 - 32 mEq/L 06/18/2017 10:33 [facility] CREATININE 1.05 0.5 - 1.3 mg/dL 06/18/2017 10:33 [facility] eGFR >60 06/18/2017 10:33 [facility] Comment: Chronic renal impairment is defined as GFR <60 Multiply result by 1.210 for patients. Anion Gap 7 5 - 15 06/18/2017 10:33 [facility] GLUCOSE - [facility] 92 70 - 100 mg/dL 06/18/2017 10:33 [facility] Potassium 4.4 3.5 - 5.0 mEq/L 06/18/2017 10:33 [facility] Sodium 138 135 - 145 mEq/L 06/18/2017 10:33 [facility] TOTAL PROTEIN - [facility] 7.8 6.4 - 8.2 gm/dl 06/18/2017 10:33 [facility] SGOT/AST - [facility] 21 10 - 37 U/L 06/18/2017 10:33 [facility] SGPT/ALT - [facility] 39 12 - 78 U/L 06/18/2017 10:33 [facility] 06/18/2017 9:13 EDT 06/18/2017 9:13 T Narrative [facility] - 06/18/2017 10:33 EDT Does PT Have a Latex Allergy? NO us Carlee Castillo DNP CHEMISTRY & BLOOD GAS ORDERABLES Final Result [facility] documented in this encounter Visit Diagnoses Not on filedocumented in this encounter Care Teams Duct Maker Relationship Specialty Start Date End Date Dennis Cooper MD [address] [place] [address] PCP - General 01/29/14 10/24/19 documented as of this encounter
--- OUTSIDE RECORDS SUMMARY | 2024-11-27 15:43 | XMS_ITS | Encounter Summary ---
Author Organization [facility] Address [address] [place] [address] Care Team Providers Care Food And Beverage Assistant Name Role Phone Carlee Castillo DNP Primary Care Provider [phone] Encounter Details Date Type Department Care Team (Latest Contact Info) Description 06/03/2021 Travel Social History Tobacco Use Types Packs/Day [...] have Coronavirus / COVID-19? No / Unsure 06/03/2021 8:00 EDT documented as of this encounter Plan of Treatment Not on file documented as of this encounter Visit Diagnoses Not on filedocumented in this encounter Care Teams Food And Beverage Assistant Relationship Specialty Start Date End Date Carlee Castillo DNP [address] [place] [id number] PCP - General 10/25/19 07/20/23 documented as of this encounter
--- OUTSIDE RECORDS SUMMARY | 2024-11-27 15:43 | XMS_ITS | Encounter Summary ---
Author Organization [facility] Address [address] [place] [address] Care Team Providers Care Finisher Wallboard And Plasterboard Name Role Phone Carlee Castillo DNP Primary Care Provider Encounter Details Date Type Department Care Team (Late st Contact Info) Description 01/07/2020 Results Only [facility] [address] [address] Carlee Castillo DNP [address] [place] [phone] Social History Tobacco Use Types Packs/Day Years [...] Procedure Name Priority Date/Time Associated Diagnosis Comments BASIC METABOLIC PANEL (BMP) Routine 01/07/2020 8:17 EST documented in this encounter Results * (ABNORMAL) BASIC METABOLIC PANEL (BMP) (01/07/2020 8:17 EST) BUN - [facility] 15 10 - 26 mg/dL 01/07/2020 10:06 [facility] CALCIUM - [facility] 9.5 8.5 - 10.5 mg/dL 01/07/2020 10:06 [facility] Chloride 104 96 - 110 mmol/L 01/07/2020 10:06 [facility] CO2 Total 27 21 - 32 mEq/L 01/07/2020 10:06 [facility] CREATININE 0.91 0.66 - 1.25 mg/dL 01/07/2020 10:06 [facility] eGFR >60 01/07/2020 10:06 [facility] Comment: Chronic renal impairment is defined as GFR <60 Multiply result by 1.210 for patients. Anion Gap 10 0 - 18 01/07/2020 10:06 [facility] GLUCOSE - [facility] 102(H) 70 - 100 mg/dL 01/07/2020 10:06 [facility] Potassium 5.2(H) 3.5 - 5.0 mEq/L 01/07/2020 10:06 [facility] Sodium 141 136 - 145 mEq/L 01/07/2020 10:06 [facility] 01/07/2020 8:17 EST 01/07/2020 8:18 EST Narrative [facility] - 01/07/2020 10:06 EST Does PT Have a Latex Allergy? NO us Carlee Castillo DNP CHEMISTRY & BLOOD GAS ORDERABLES Final Result [facility] documented in this encounter Visit Diagnoses Not on filedocumented in this encounter Care Teams Finisher Wallboard And Plasterboard Relationship Specialty Start Date End Date Carlee Castillo DNP [address] [place] [address] PCP - General 10/25/19 07/20/23 documented as of this encounter
--- OUTSIDE RECORDS SUMMARY | 2024-11-27 15:43 | XMS_ITS | Encounter Summary ---
Author Organization [facility] Address [address] [place] [address] Care Team Providers Care Brace Maker Name Role Phone Iveth Iverson MD Primary Care Provider [phone] Encounter Details Date Type Department Care Team (Latest Contact Info) Description 01/24/2014 8:49 EST - 01/24/2014 23:59 EST Hospital Encounter [address] [address] Iveth Iverson MD [place] Location [address] [place] [address] Discharge Disposition: Home or Self Care Social History Tobacco Use Types Packs/Day Years Used Date Smoking Tobacco: Never Assessed Sex and Gender Information Value Date Recorded Sex Assigned at Male 10/24/2024 7:41 EST Legal Sex Male 18:41 EST Gender Identity Male 01/03/2020 14:38 EST Sexual Orientation Not on file documented as of this encounter Discharge Disposition Disposition Code Departure Means Destination Home or Self Long-Term documented in this encounter Plan of Treatment Not on file documented as of this encounter Visit Diagnoses Not on filedocumented in this encounter Care Teams Brace Maker Relationship Specialty Start Date End Date Iveth Iverson MD [place] Location [address] [place] [address] PCP - General 01/24/14 01/28/14 documented as of this encounter
--- OUTSIDE RECORDS SUMMARY | 2024-11-27 15:43 | XMS_ITS | Encounter Summary ---
Author Organization [facility] Address [address] [place] [address] Care Team Providers Care Mailroom Assistant Name Role Phone Dennis Cooper MD Primary Care Provider [phone] Encounter Details Date Type Department Care Team (Late st Contact Info) Description 08/19/2018 Historical Results Only [facility] [place] [address] [address] Raymundo Brothers MD [address] [place] [phone] Social History Tobacco Use Types Packs/Day [...] PROFILE (INCLUDES CHOLESTEROL, TRIGLYCERIDES, HDL, LDL) Routine 08/19/2018 9:13 EDT documented in this encounter Results * (ABNORMAL) LIPID PROFILE (INCLUDES CHOLESTEROL, TRIGLYCERIDES, HDL, LDL) (08/19/2018 9:13 EDT) Triglyceride 257 <150 mg/dL 08/19/2018 10:22 EDT [facility] Comment: Adult: Normal: ?<150 mg/dl ? Borderline High: 150-199 mg/dl ? High: ?200-499 mg/dl ? Very High: >cr=447 Cholesterol 163 <200 mg/dL 08/19/2018 10:22 [facility] Comment: Acceptable: ??<200 Borderline: ??200-239 High: ?> or = 240 Chol/HDL Ratio 4.4 0 - 5.0 08/19/2018 10:22 [facility] Comment: DESIRABLE RATIO IS LESS THAN 4.1 PATIENTS ARE CONSIDERED AT RISK: WOMEN RATIO >5 MEN RATIO >6 FASTING? - [facility] Yes 8 9:13 [facility] HDL 37(L) 40 - 60 mg/dL 08/19/2018 10:22 [facility] Comment: ?? Reference Range Low: ? < 40 ??mg/dL Normal: ??40-60 mg/dL High: ?>= 60 mg/dL LDL CHOLESTEROL - [facility] 75 60 - 100 mg/dL 08/19/2018 10:22 [facility] Non HDL Cholesterol 126 mg/dl 08/19/2018 10:22 [facility] Comment: Desirable: ?Less than 130 Borderline High: ??130-159 High: ? 160-189 Very High: ?Greater than or equal to 190 08/19/2018 9:13 EDT 08/19/2018 9:13 EDT Narrative [facility] - 08/19/2018 10:22 EDT Does PT Have a Latex Allergy? NO us Raymundo Brothers MD CHEMISTRY & BLOOD GAS ORDERABLE S Final Result [facility] documented in this encounter Visit Diagnoses Not on filedocumented in this encounter Care Teams Mailroom Assistant Relationship Specialty Start Date End Date Dennis Cooper MD [address] [place] [address] PCP - General 3/3/14 11/26/19 documented as of this encounter
--- OUTSIDE RECORDS SUMMARY | 2024-11-27 15:43 | XMS_ITS | Encounter Summary ---
Author Organization [facility] Address [address] [place] [address] Care Team Providers Care Molder Fitting Name Role Phone Carlee Castillo DNP Primary Care Provider [phone] Reason for Visit * Reason Comments Immunizations Encounter Details Date Type Department Care Team (Late st Contact Info) Description 07/07/2021 8:15 EDT Nurse Only [facility] Family [address] [address] Nurse, [facility] Need for vaccination (Primary Dx) Social History [...] 8:06 EDT documented as of this encounter Last Filed Vital Signs Vital Sign Reading Time Taken Comments Blood Pressure - - Pulse - - Temperature 36.8 ??C (98.2 ??F) 07/07/2021 0941 EDT Respiratory Rate - - Oxygen Saturation - - Inhaled Oxygen Concentration - - Weight - - Height - - Body Mass Index - - documented in this encounter Progress Notes * Desire Copeland LPN - 07/07/2021 0815 EDT Patient presents to the office for a Hep B immunization(s). Procedure Note: Patient tolerates procedure well and leaves the suite without complaint. Patient instructed to contact the office with any further questions or concerns. I was supervised by Carlee Castillo DNP, PIANO MAKER who was present and immediately available in the office suite. DESIRE COPELAND LPN 07/07/2021 9:40 documented in this encounter Plan of Treatment Not on file documented as of this encounter Visit Diagnoses Diagnosis Need for vaccination- Primary Need for prophylactic vaccination and inoculation against unspecified single disease documented in this encounter Orders Immunization/Injection Count Last Ordered Date First Ordered Date HEPATITIS B VACCINE ADULT IM 1 07/07/2021 documented in this encounter Care Teams Molder Fitting Relationship Specialty Start Date End Date Carlee Castillo DNP [address] [place] [address] PCP - General 10/25/19 07/20/23 documented as of this encounter
--- OUTSIDE RECORDS SUMMARY | 2024-11-27 15:43 | XMS_ITS | Encounter Summary ---
Author Organization [facility] Address [address] [place] [address] Care Team Providers Care Cutter First Name Role Phone Carlee Castillo DNP Primary Care Provider [phone] Encounter Details Date Type Department Care Team (Late st Contact Info) Description 04/16/2021 Results Only [facility] [address] [address] Carlee Castillo DNP [address] [place] [address] Social History Tobacco Use Types [...] Associated Diagnosis Comments RUBELLA IGG ANTIBODY Routine 04/16/2021 13:53 EDT documented in this encounter Results * RUBELLA IGG ANTIBODY (04/16/2021 13:53 EDT) RUBELLA IGG ANTIBODY - [facility] Positive 04/16/2021 17:23 EDT [facility] Comment: Expected value: Positive The presence of Rubella IgG suggest immunity against rubella 04/16/2021 13:5 3 EDT 04/16/2021 13:53 EDT Narrative [facility] - 04/16/2021 17:23 EDT Does PT Have a Latex Allergy? NO Carlee Castillo DNP CHEMISTRY & BLOOD GAS ORDERABLES Final Result Performing Organization Address City/State/[facility] Co de Phone Number [facility] [address] [place] [address] documented in this encounter Visit Diagnoses Not on filedocumented in this encounter Care Teams Cutter First Relationship Specialty Start Date End Date Carlee Castillo DNP [address] [place] [address] PCP - General 10/25/19 07/20/23 documented as of this encounter
--- OUTSIDE RECORDS SUMMARY | 2024-11-27 15:43 | XMS_ITS | Encounter Summary ---
Author Organization [facility] Address [address] [place] [address] Care Team Providers Care Bottle Tester Name Role Phone Carlee Castillo DNP Primary Care Provider [phone] Reason for Visit * Reason Onset Date Comments Other 02/15/2020 New fever, new b gianfranco aches and ongoing cough Encounter Details Date Type Department Care Team (Late st Contact Info) Description 02/15/2020 Telephone [facility] Integrative Family Medicine [address] [address] Carlee Castillo DNP [address] [place] [address] Other (New fever, new body aches and ongoing cough) Social History Tobacco Use Types Packs/Day Years Used Date Smoking Tobacco: Former Smokeless Tobacco: Never Sex and Gender Information Value Date Recorded Sex Assigned at Male 10/24/2024 7:41 EST Legal Sex Male 18:41 EST Gender Identity Male 01/03/2020 14:38 EST Sexual Orientation Not on file documented as of this encounter Miscellaneous Notes * Telephone Encounter - Velvet Fishman RN - 02/15/2020 0817 EDT [facility] [place] Triage for COVID-19 Illness/symptoms onset Jan 20 Current symptoms Aches cough Fever?Tmax, current temp, last dose of tylenol/ibuprofen. 100 this am Cough yes Myalgias yes Chest pain no Shortness of breath beyond baseline no Contact with a person who has been diagnosed with COVID-19 or a person who is a Person Under Investigation no If YES to fever/cough or shortness of breath AND travel to these areas in the last 14 days, patientis now considered high risk Healthcare worker or residential instructor? no High risk travel/cruises within 14 days of symptom onset. See form/intranet for current list. no If YES to fever/cough or shortness of breath Current immunosuppressed? See form. Recent time at assisted facility? Are your symptoms getting better or worse or not change? Aches and pain started this am temp of 100.0 this am. Cough is better from jan 20. Traveled to [place]. Got home on dec / Homeless? no I explained he does not fit the criteria for testing. To treat his symptoms. Rest fluids. Call withhigher fever SOB CP Patient understnads * Telephone Encounter - Saadia Benjamin - 02/15/2020 0814 EDT Pt was in [place] a few weeks ago. documented in this encounter Plan of Treatment Not on file documented as of this encounter Visit Diagnoses Not on filedocumented in this encounter Care Teams Bottle Tester Relationship Specialty Start Date End Date Carlee Castillo DNP [address] [place] [address] PCP - General 10/25/19 07/20/23 documented as of this encounter
--- OUTSIDE RECORDS SUMMARY | 2024-11-27 15:43 | XMS_ITS | Encounter Summary ---
Author Organization [facility] Address [address] [place] [address] Care Team Providers Care Resolution Manager Name Role Phone Dennis Cooper MD Primary Care Provider [phone] Encounter Details Date Type Department Care Team (Late st Contact Info) Description 09/17/2017 Historical Results Only [facility] - Main [place] [address] [place], [place] [id number] Carlee Castillo DNP [address] [place] [phone] Social History Tobacco Use Types Packs/Day Years [...] Procedure Name Priority Date/Time Associated Diagnosis Comments HEPATIC FUNCTION PANEL (ALB,ALK PHOS,ALT,AST,DBIL,T OT DERICK,TOT PROT) Routine 09/17/2017 9:03 EDT documented in this encounter Results * (ABNORMAL) HEPATIC FUNCTION PANEL (ALB,ALK PHOS,ALT,AST,DBIL,TOT DERICK,TOT PROT) (09/17/2017 9:03 EDT) Albumin % 4.8 3.4 - 4.9 g/dL 09/17/2017 11:36 EDT [facility] ALKALINE PHOSPHATASE - [facility] 40 38 - 126 U/L 09/17/2017 11:36 EDT [facility] BILIRUBIN DIRECT CALC - MC 0.5(H) 0.0 - 0.3 mg/dL 09/17/2017 11:36 EDT [facility] BILIRUBIN TOTAL 0.6 0.2 - 1.3 mg/dL 09/17/2017 11:36 EDT [facility] Unconjugated Bilirubin 0.1(L) 0.6 - 10.5 mg/dL 09/17/2017 11:36 EDT [facility] TOTAL PROTEIN - [facility] 7.6 6.2 - 8.2 gm/dL 09/17/2017 11:36 EDT [facility] SGOT/AST - [facility] 42 17 - 59 U/L 09/17/2017 11:36 EDT [facility] SGPT/ALT - [facility] 87(H) 21 - 72 U/L 09/17/2017 11:36 T [facility] 09/17/2017 9:03 EDT 09/17/2017 9:03 EDT Narrative [facility] - 09/17/2017 11:36 EDT Does PT Have a Latex Allergy? NO us Carlee Castillo DNP CHEMISTRY & BLOOD GAS ORDERABLES Final Result [facility] documented in this encounter Visit Diagnoses Not on filedocumented in this encounter Care Teams Resolution Manager Relationship Specialty Start Date End Date Dennis Cooper MD [address] [place] [address] PCP - General 01/29/14 10/24/19 documented as of this encounter
--- OUTSIDE RECORDS SUMMARY | 2024-11-27 15:43 | XMS_ITS | Encounter Summary ---
Author Organization [facility] Address [address] [place] [address] Care Team Providers Care Chainstitch Binder Name Role Phone Carlee Castillo DNP Primary Care Provider [phone] Reason for Visit * Reason Comments Immunizations Encounter Details Date Type Department Care Team (Late st Contact Info) Description 02/03/2021 7:30 EST Nurse Only [facility] Family [address] [address] Nurse, [facility] Need for vaccination (Primary Dx) Social History [...] Pressure - - Pulse - - Temperature 36.4 ??C (97.6 ??F) 02/03/2021 0726 EST Respiratory Rate - - Oxygen Saturation - - Inhaled Oxygen Concentration - - Weight - - Height - - Body Mass Index - - documented in this encounter Progress Notes * Katie Carranza RN - 02/03/2021 0730 EST Here for Hep B#2 VIS given from previous and patient bought in with him; SE reviewed and ?'s answered. documented in this encounter Plan of Treatment Not on file documented as of this encounter Visit Diagnoses Diagnosis Need for vaccination- Primary Need for prophylactic vaccination and inoculation against unspecified single disease documented in this encounter Orders Immunization/Injection Count Last Ordered Date First Ordered Date HEPATITIS B VACCINE ADULT IM 1 02/03/2021 documented in this encounter Care Teams Chainstitch Binder Relationship Specialty Start Date End Date Carlee Castillo DNP [address] [place] [address] PCP - General 10/25/19 07/20/23 documented as of this encounter
--- OUTSIDE RECORDS SUMMARY | 2024-11-27 15:43 | XMS_ITS | Encounter Summary ---
Author Organization [facility] Address [address] [place] [address] Care Team Providers Care Order Runner Name Role Phone Dennis Cooper MD Primary Care Provider [phone] Encounter Details Date Type Department Care Team (Late st Contact Info) Description 12/17/2017 Historical Results Only [facility] - Main [place] [address] [place], [place] [phone] Carlee Castillo DNP [address] [place] [phone] Social History Tobacco Use Types Packs/Day Years [...] PROFILE (INCLUDES CHOLESTEROL, TRIGLYCERIDES, HDL, LDL) Routine 12/17/2017 8:59 EST documented in this encounter Results * LIPID PROFILE (INCLUDES CHOLESTEROL, TRIGLYCERIDES, HDL, LDL) (12/17/2017 8:59 EST) Triglyceride 222 <150 mg/dL 12/17/2017 13:44 EST [facility] Comment: Adult: Normal: ?<150 mg/dl ? Borderline High: 150-199 mg/dl ? High: ?200-499 mg/dl ? Very High: >cs=759 Cholesterol 164 <200 mg/dL 12/17/2017 13:44 [facility] Comment: Acceptable: ??<200 Borderline: ??200-239 High: ?> or = 240 Chol/HDL Ratio 3.9 0 - 5.0 12/17/2017 13:44 [facility] Comment: DESIRABLE RATIO IS LESS THAN 4.1 PATIENTS ARE CONSIDERED AT RISK: WOMEN RATIO >5 MEN RATIO >6 FASTING? - [facility] Yes 8 8:59 [facility] HDL 42 40 - 60 mg/dL 12/17/2017 13:44 [facility] Comment: ?? Reference Range Low: ? < 40 ??mg/dL Normal: ??40-60 mg/dL High: ?>= 60 mg/dL LDL CHOLESTEROL - [facility] 78 60 - 100 mg/dL 12/17/2017 13:44 [facility] Non HDL Cholesterol 122 mg/dl 12/17/2017 13:44 [facility] Comment: Desirable: ?Less than 130 Borderline High: ??130-159 High: ? 160-189 Very High: ?Greater than or equal to 190 12/17/2017 8:59 EST 12/17/2017 8:59 EST Narrative [facility] - 12/17/2017 13:44 EST Does PT Have a Latex Allergy? NO Carlee Castillo [facility] CHEMISTRY & BLOOD GAS ORDERABLES Final Result [facility] documented in this encounter Visit Diagnoses Not on filedocumented in this encounter Care Teams Order Runner Relationship Specialty Start Date End Date Dennis Cooper MD [address] [place] [address] PCP - General 01/29/14 10/24/19 documented as of this encounter
--- OUTSIDE RECORDS SUMMARY | 2024-11-27 15:43 | XMS_ITS | Encounter Summary ---
Author Organization [facility] Address [address] [place] [address] Care Team Providers Care Dean Of Boys Name Role Phone Carlee Castillo DNP Primary Care Provider [phone] Reason for Visit * Reason Onset Date Comments Medications Refill 11/18/2020 Encounter Details Date Type Department Care Team (Late st Contact Info) Description 11/18/2020 Refill [facility] Integrative Family Medicine [address] [address] Carlee Castillo DNP [address] [place] [address] Medications Refill Social History Tobacco Use [...] orally once a day 90 Tab 3 11/18/2020 1 rosuvastatin (CRESTOR) 20 mg tabletIndications:Mi xed hyperlipidemia 1 tab(s) orally once a day (at bedtime) 90 Tab 3 11/18/2020 1 fluocinonide (LIDEX) 0.05 % creamIndications:Ecz kaden, unspecified type 1 linda applied topically 3 times a day 30 g 1 11/18/2020 1 documented in this encounter Miscellaneous Notes * Telephone Encounter - Deidra Ott RN - 11/18/2020 1528 EST [facility] -07/08/20 NOV - 12/06/20 labs - 01/07/20 Rx(s) escribed to pharmacy. DEIDRA OTT RN * Telephone Encounter - Deidra Ott RN - 11/18/2020 1528 ESTFrom: Mike Stovall To: Office of Carlee Castillo APRN Sent: 11/18/2020 14:28 EST Subject: Medication Renewal Request Refills have been requested for the following medications: fluocinonide (LIDEX) 0.05 % cream [Carlee Castillo APRN] rosuvastatin (CRESTOR) 20 mg tablet [Carlee Castillo APRN] lisinopriL (PRINIVIL) 40 mg tablet [Carlee Castillo APRN] Preferred pharmacy: [id number] - [facility] [place] - [address] [facility] documented in this encounter Plan of Treatment Not on file documented as of this encounter Visit Diagnoses Diagnosis Eczema, unspecified type Mixed hyperlipidemia Essential (primary) hypertension Unspecified essential hypertension documented in this encounter Discontinued Medications Medication Sig Discontinue Reason Start Date End Da te fluocinonide (LIDEX) 0.05 % creamIndications:Eczema, unspecified type 1 linda applied topically 3 times a day Reorder 12/01/2019 11/18/2020 rosuvastatin (CRESTOR) 20 mg tabletIndications:Mixed hyperlipidemia 1 tab(s) orally once a day (at bedtime) Reorder 07/08/2020 11/18/2020 lisinopriL (PRINIVIL) 40 mg tabletIndications:Essenti al (primary) hypertension 1 tab(s) orally once a day Reorder 07/08/2020 11/18/2020 documented as of this encounter Care Teams Dean Of Boys Relationship Specialty Start Date End Date Carlee Castillo DNP [address] [place] [address] PCP - General 10/25/19 07/20/23 documented as of this encounter
--- OUTSIDE RECORDS SUMMARY | 2024-11-27 15:43 | XMS_ITS | Encounter Summary ---
Author Organization [facility] Address [address] [place] [address] Care Team Providers Care Medical Billing Assistant Name Role Phone Carlee Castillo DNP Primary Care Provider [phone] Reason for Visit * Reason Comments PPD Reading Encounter Details Date Type Department Care Team (Late st Contact Info) Description 04/18/2021 15:00 EDT Nurse Only [facility] Integrative Family Medicine [address] [address] Nurse, [facility] Screening-pulmonary TB (Primary Dx) Social History Tobacco [...] 14:56 EDT documented as of this encounter Progress Notes * Dusty Pacheco, SHERRY - 04/18/2021 1500 EDT Patient here for PPD Reading PPD read and results documented in Enter Edit Results. Result: 0 mm induration. I was supervised by Carlee Hightower MD who was present and immediately available in the office suite. DUSTY PACHECO RN 04/18/2021 15:52 documented in this encounter Plan of Treatment Not on file documented as of this encounter Visit Diagnoses Diagnosis Screening-pulmonary TB- Primary Screening examination for pulmonary tuberculosis documented in this encounter Care Teams Medical Billing Assistant Relationship Specialty Start Date End Date Carlee Castillo DNP [address] [place] [id number] PCP - General 10/25/19 07/20/23 documented as of this encounter
--- OUTSIDE RECORDS SUMMARY | 2024-11-27 15:43 | XMS_ITS | Encounter Summary ---
Author Organization [facility] Address [address] [place] [address] Care Team Providers Care Child And Adolescent Psychiatrist Name Role Phone Carlee Castillo DNP Primary Care Provider [phone] Reason for Visit * Reason Onset Date Comments Medications Refill 11/30/2019 Encounter Details Date Type Department Care Team (Late st Contact Info) Description 11/30/2019 Refill [facility] Integrative Family Medicine [address] [id number] Carlee Castillo DNP [address] [place] [phone] Medications Refill Social History Tobacco Use Types Packs/Day Years Used Date Smoking Tobacco: Never Assessed Sex and Gender Information Value Date Recorded Sex Assigned at Male 10/24/2024 7:41 EST Legal Sex Male 18:41 EST Gender Identity Male 01/03/2020 14:38 EST Sexual Orientation Not on file documented as of this encounter Miscellaneous Notes * Telephone Encounter - Deidra Ott RN - 12/01/2019 0843 EST Rx sent 11/09/19. Confirmed with [facility] that they do have active rx on file - they will prepare it for him. DEIDRA OTT RN * Telephone Encounter - Deidra Ott RN - 12/01/2019 0841 ESTFrom: Mike Stovall Sent: 11/30/2019 15:36 EST Subject: Medication Renewal Request Mike Stovall would like a refill of the following medications: rosuvastatin (CRESTOR) 20 mg tablet [Carlee Castillo APRN] Preferred pharmacy: [id number] - [place], [place] - [address] [facility] documented in this encounter Plan of Treatment Not on file documented as of this encounter Visit Diagnoses Diagnosis Mixed hyperlipidemia- Primary documented in this encounter Care Teams Child And Adolescent Psychiatrist Relationship Specialty Start Date End Date Carlee Castillo DNP [address] [place] [id number] PCP - General 10/25/19 07/20/23 documented as of this encounter
--- OUTSIDE RECORDS SUMMARY | 2024-11-27 15:43 | XMS_ITS | Encounter Summary ---
Author Organization [facility] Address [address] [place] [address] Care Team Providers Care Glass Etcher Helper Name Role Phone Iveth Iverson MD Primary Care Provider [phone] Encounter Details Date Type Department Care Team (Late st Contact Info) Description 01/24/2014 Results Only [facility] [phone] Leta Gomes, DO [address] [place] [address] Social History Tobacco Use Types Packs/Day Years [...] Procedure Name Priority Date/Time Associated Diagnosis Comments SURGICAL PATHOLOGY Routine 01/24/2014 18 :41 EST documented in this encounter Results * SURGICAL PATHOLOGY (01/24/2014 18:41 EST) Pathology Report: SURGICAL PATHOLOGY REPORT Reports generated via electronic interface contain original data; however they are lacking the format of the original report. Caution should be taken when reading/interpreti ng unformatted reports. Name: ? STOVALLZACH Pelaez ? Accession #: ? [id number] ? : ? 1975 (Age: 38) ??M ? Collect Date: ? 01/24/2014 ? Location: ? [facility] ? Receive Date: ? 01/24/2014 ? Provider: LETA GOMES DO Copy to: ALHAJI YADAV MD ? Final Pathologic Diagnosis: ANAL MUCOSA AND SOFT TISSUE, HEMORRHOIDECTOMY: - ??Hemorrhoids. Document reviewed and electronically signed by: BG JENNINGS MD Report ??Date: 01/29/2014 13:10 By the signature above, the attending physician certifies that he/she has personally conducted a gross and/or microscopic examination of the described specimens and rendered or confirmed the above diagnosis. Specimen(s) Received: Hemorrhoid Clinical History: Ext/internal hemorrhoid Gross Description: ? Received in formalin labelled with proper patient identification (initials R, S) and hemorrhoid are three mucosal covered pieces of tissue (3.2 x 1.5 cm x 0.9 cm in thickness, 2.0 x 1.5 cm x 1.0 cm in thickness, and 1.4 x 0.6 cm x 0.5 cm in thickness). The mucosa is pleitez, focally blue-weinstein, and focally slightly convex, but is otherwise generally smooth. ??Sections reveal the subcutaneous tissue contains dilated vessels. Test Facility Engineer sections of the specimen are submitted as follows: BLOCK ANDERSON 1- ??two sections of largest piece 2- ??one manufacturer's representative section of two remaining pieces Jose Whittenestefanía 01/25/2014 09:50 AM End of Report MARLY ENRIQUE 01/24/2014 18:4 1 EST 01/24/2014 18:41 EST us Leta Gomes DO PATHOLOGY ORDERABLES Final Res ult MARLY ENRIQUE [address] [place] [address] documented in this encounter Visit Diagnoses Not on filedocumented in this encounter Care Teams Glass Etcher Helper Relationship Specialty Start Date End Date Iveth Iverson MD [place] Location [address] [place] [address] PCP - General 01/24/14 01/28/14 documented as of this encounter
--- OUTSIDE RECORDS SUMMARY | 2024-11-27 15:43 | XMS_ITS | Encounter Summary ---
Author Organization [facility] Address [address] [place] [address] Care Team Providers Care Warehouse Team Member Name Role Phone Carlee Castillo DNP Primary Care Provider [phone] Reason for Referral * Laboratory Services (Routine) - New Request Specialty Diagnoses / Procedures Referred By Belle choi Referred To Contact Diagnoses Mixed hyperlipidemia Procedures LIPID PROFILE (INCLUDES CHOLESTEROL, TRIGLYCERIDES, HDL, LDL) Carlee Castillo DNP Phone: tel: fax: Referral ID Status Reason Start Date Expiration Date V isits Requested Visits Authorized [id number] New Request 06/03/2021 1 1 * Laboratory Services (Routine) - New Request Specialty Diagnoses / Procedures Referred By Belle choi Referred To Contact Diagnoses Essential (primary) hypertension Procedures COMPREHENSIVE METABOLIC PANEL (CMP) Carlee Castillo DNP Phone: tel: fax: Referral ID Status Reason Start Date Expiration Date V isits Requested Visits Authorized [id number] New Request 06/03/2021 1 1 Reason for Visit * Reason Comments Hypertension c/o more frequent he adaches- Ibuprofen helps Encounter Details Date Type Department Care Team (Latest Contact Info) Description 06/03/2021 8:20 EDT Office Visit [facility] Family Medicine [address] [address] Carlee Castillo [facility] [address] [place] [address] Essential (primary) hypertension (Primary Dx); Mixed hyperlipidemia [...] 8:00 EDT documented as of this encounter Last Filed Vital Signs Vital Sign Reading Time Taken Comments Blood Pressure 112/80 06/03/2021 0809 EDT Pulse 60 06/03/2021 0809 EDT Temperature 37 ??C (98.6 ??F) 06/03/2021 0809 EDT Respiratory Rate - - Oxygen Saturation - - Inhaled Oxygen Concentration - - Weight 93.4 kg (205 lb 12.8 oz) 06/03/2021 0809 EDT Height 174 cm (5' 8.5) 06/03/2021 0809 EDT Body Mass Index 30.84 06/03/2021 0809 EDT documented in this encounter Ordered Prescriptions Prescription Sig Dispense Quantity Refills Last Filled Start Date End Date lisinopriL (PRINIVIL) 40 mg tabletIndications: Essential (primary) hypertension 1 tab(s) orally once a day 90 Tablet 3 06/03/2021 12/02/2021 documented in this encounter Progress Notes * Carlee Castillo, PRODUCT MANAGEMENT ANALYST - 06/03/2021 0820 EDT [facility] [place] Subjective: Chief Complaint(s): Hypertension (c/o more frequent headaches- Ibuprofen helps) HPI Follow up hypertension. He is compliant with lisinopril 40mg/day. No home BP monitoring. Is enrolled in accelerated BSN program at [facility]. Compliant with rosuvastatin 20mg daily for hyperlipidemia. Last CMP and lipids 12/06/2020. Occasional mild headache, left side of head. Resolves w/ ibuprofen. Vision screening up to date. Hereceived new glasses 2 months ago. I have reviewed patient's tobacco history: reports [...] Systems Constitutional: Negative for unexpected weight change. Eyes: Negative for visual disturbance. Cardiovascular: Negative for chest pain, palpitations and leg swelling. Neurological: Positive for headaches (occassional). Negative for dizziness and light-headedness. Objective: Examination: Vitals: BP 112/80 (BP Cuff Location: Left arm, BP Patient Position: Sitting, BP Cuff Sizes: Adult, regular) Pulse 60 Temp 37 ??C (98.6 ??F) Ht 174 cm (68.5) Wt 93.4 kg (205 lb 12.8 oz) BMI 30.84 kg/m?? Body mass index is 30.84 kg/m??. Physical Exam GENERAL APPEARANCE: no acute distress, pleasant, cooperative. HEENT EYES:, conjunctiva clear. HEART: normal S1S2, no murmurs. LUNGS: good air entry bilaterally, clear to auscultation. SKIN: warm & dry. NEUROLOGIC EXAM: alert & oriented x3, gait normal. Data reviewed with patient (past results): Reviewed and/or ordered active problem list, medication list, allergies, health maintenance, notes from last encounter tests Assessment & Plan: 1. Essential (primary) hypertension Blood pressure reviewed, at goal. Continue lisinopril 40 mg daily. Will recheck renal function and electrolytes prior to next appointment in 6 months. - lisinopriL (PRINIVIL) 40 mg tablet; 1 tab(s) orally once a day Dispense: 90 Tablet; Refill: 3 - COMPREHENSIVE METABOLIC PANEL (CMP); Future 2. Mixed hyperlipidemia Continue rosuvastatin 20 mg daily. Order annual lipid panel for him to complete prior to his next appointment in 6 months. - LIPID PROFILE (INCLUDES CHOLESTEROL, TRIGLYCERIDES, HDL, LDL); Future Return in about 6 months (around 12/04/2021) for HTN, after results. documented in this encounter Plan of Treatment Not on file documented as of this encounter Results * LIPID PROFILE (INCLUDES CHOLESTEROL, TRIGLYCERIDES, HDL, LDL) (12/11/2021 11:34 EST) Cholesterol 198 See Note mg/dL 12/11/2021 13:11 [facility] Comment: Acceptable: ?<200 mg/dL Borderline High: 200-239 mg/dL High: ?> or = 240 mg/dL HDL 52 See Note mg/dL 12/11/2021 13:11 [facility] Comment: Low: ? <40 mg/dL Normal: ??40-60 mg/dL High: ?>60 mg/dL LDL, Calculated 88 See Note mg/dL 12/11/2021 13:11 [facility] Comment: Optimal: ? <100 mg/dL Near Optimal: ?100-129 mg/dL Borderline High: 130-159 mg/dL High: ?160-189 mg/dL Very High: ? > or = 190 mg/dL Triglyceride 292 See Note mg/dL 12/11/2021 13:11 [facility] Comment: Normal: ? <150 mg/dL Borderline High: ??150 - 199 mg/dL High: ? 200 - 499 mg/dL Very High: ?> or = 500 mg/dL Chol/HDL Ratio 3.8 See Note 12/11/2021 13:11 [facility] Comment: NOTE: Desirable Ratio = <4.1 Patient At Risk Ratio = >5.0(Males) ?>6.0(Females) Non HDL Cholesterol 146 See Note mg/dL 12/11/2021 13:11 [facility] Comment: Desirable: ?<130 mg/dL Borderline High: ??130-159 mg/dL High: ? 160-189 mg/dL Very High: ?> or = 190 mg/dL Blood VENOUS BLOOD / Unknown Venipuncture / Unknown 12/11/2021 11:34 EST 12/11/2021 12:41 EST Carlee Castillo [facility] CHEMISTRY & BLOOD GAS ORDERABLES Final Result [facility] [address] [place] [address] * (ABNORMAL) COMPREHENSIVE METABOLIC PANEL (CMP) (12/11/2021 11:34 EST) Sodium 139 136 - 145 mmol/L 12/11/2021 13:11 EST [facility] Potassium 4.8 3.5 - 5.0 mmol/L 12/11/2021 13:11 [facility] Chloride 100 96 - 110 mmol/L 12/11/2021 13:11 [facility] CO2 Total 24 22 - 32 mmol/L 12/11/2021 13:11 [facility] Glucose 116(H) 70 - 100 mg/dL 12/11/2021 13:11 [facility] BUN 12 10 - 26 mg/dL 12/11/2021 13:11 [facility] Creatinine 0.95 0.66 - 1.25 mg/dL 12/11/2021 13:11 [facility] eGFR 97 >60 mL/min/1.7 3m2 12/11/2021 13:11 [facility] Total Protein 8.4(H) 6.3 - 8.2 g/dL 12/11/2021 13:11 [facility] Albumin 5.2(H) 3.4 - 4.9 g/dL 12/11/2021 13:11 [facility] Alkaline Phosphatase 42 38 - 126 U/L 12/11/2021 13:11 [facility] AST 32 15 - 46 U/L 12/11/2021 13:11 [facility] ALT 31 <50 U/L 12/11/2021 13:11 [facility] Bilirubin, Total 0.7 <1.4 mg/dL 12/11/19 13:11 [facility] Calcium 9.9 8.5 - 10.5 mg/dL 12/11/2021 13:11 [facility] Albumin/Globulin Ratio 1.6 1.0 - 2.5 12/11/2021 13:11 [facility] Anion Gap 15 8 - 16 12/11/2021 13:11 [facility] Blood VENOUS BLOOD / Unknown Venipuncture / Unknown 12/11/2021 11:34 EST 12/11/2021 12:41 EST us Carlee Castillo DNP CHEMISTRY & BLOOD GAS ORDERABLES Final Result [facility] [address] [place] [address] documented in this encounter Visit Diagnoses Diagnosis Essential (primary) hypertension- Primary Unspecified essential hypertension Mixed hyperlipidemia documented in this encounter Discontinued Medications Medication Sig Discontinue Reason Start Date End Da te lisinopriL (PRINIVIL) 40 mg tabletIndications:Radha al (primary) hypertension 1 tab(s) orally once a day Reorder 11/18/2020 06/03/2021 pseudoephedrine (SUDAFED) 30 mg tablet Take 1 Tab by mouth every 6 hours. Therapy completed 06/03/2021 documented as of this encounter Care Teams Warehouse Team Member Relationship Specialty Start Date End Date Carlee Castillo DNP [address] [place] [id number] PCP - General 10/25/19 07/20/23 documented as of this encounter
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
--- OUTSIDE RECORDS SUMMARY | 2024-11-27 15:43 | XMS_ITS | Encounter Summary ---
Author Organization [facility] Address [address] [place] [address] Care Team Providers Care Gas Station Clerk Name Role Phone Dennis Cooper MD Primary Care Provider [phone] Encounter Details Date Type Department Care Team (Late st Contact Info) Description 09/17/2017 Historical Results Only [facility] - Main [place] [address] [place], [place] [phone] Carlee Castillo DNP [address] [place] [id number] Social History Tobacco Use Types Packs/Day Years [...] PROFILE (INCLUDES CHOLESTEROL, TRIGLYCERIDES, HDL, LDL) Routine 09/17/2017 9:03 EDT documented in this encounter Results * (ABNORMAL) LIPID PROFILE (INCLUDES CHOLESTEROL, TRIGLYCERIDES, HDL, LDL) (09/17/2017 9:03 EDT) Triglyceride 239 <150 mg/dL 09/17/2017 11:36 EDT [facility] Comment: Adult: Normal: ?<150 mg/dl ? Borderline High: 150-199 mg/dl ? High: ?200-499 mg/dl ? Very High: >gh=363 Cholesterol 162 <200 mg/dL 09/17/2017 11:36 EDT [facility] Comment: Acceptable: ??<200 Borderline: ??200-239 High: ?> or = 240 Chol/HDL Ratio 4.3 0 - 5.0 09/17/2017 11:36 EDT [facility] Comment: DESIRABLE RATIO IS LESS THAN 4.1 PATIENTS ARE CONSIDERED AT RISK: WOMEN RATIO >5 MEN RATIO >6 FASTING? - [facility] [place] 7 9:04 EDT [facility] HDL 37(L) 40 - 60 mg/dL 09/17/2017 11:36 EDT [facility] Comment: ?? Reference Range Low: ? < 40 ??mg/dL Normal: ??40-60 mg/dL High: ?>= 60 mg/dL LDL CHOLESTEROL - [facility] 77 60 - 100 mg/dL 09/17/2017 11:36 EDT [facility] Non HDL Cholesterol 125 mg/dl 09/17/2017 11:36 EDT [facility] Comment: Desirable: ?Less than 130 Borderline High: ??130-159 High: ? 160-189 Very High: ?Greater than or equal to 190 09/17/2017 9:03 EDT 09/17/2017 9:03 EDT Narrative [facility] - 09/17/2017 11:36 EDT Does PT Have a Latex Allergy? NO us Carlee Castillo DNP CHEMISTRY & BLOOD GAS ORDERABLES Final Result [facility] documented in this encounter Visit Diagnoses Not on filedocumented in this encounter Care Teams Gas Station Clerk Relationship Specialty Start Date End Date Dennis Cooper MD [address] [place] [address] PCP - General 01/29/14 10/24/19 documented as of this encounter
--- OUTSIDE RECORDS SUMMARY | 2024-11-27 15:43 | XMS_ITS | Encounter Summary ---
Author Organization [facility] Address [address] [place] [address] Care Team Providers Care Product Development Worker Name Role Phone Dennis Cooper MD Primary Care Provider [phone] Encounter Details Date Type Department Care Team (Late st Contact Info) Description 12/17/2017 Historical Results Only [facility] - Main [place] [address] [place], [place] [phone] Carlee Castillo [address] [id number] Social History Tobacco Use Types Packs/Day Years [...] PANEL (ALB,ALK PHOS,ALT,AST,DBIL,T OT DERICK,TOT PROT) Routine 12/17/2017 8:59 EST documented in this encounter Results * (ABNORMAL) HEPATIC FUNCTION PANEL (ALB,ALK PHOS,ALT,AST,DBIL,TOT DERICK,TOT PROT) (12/17/2017 8:59 EST) Albumin % 5.0(H) 3.4 - 4.9 g/dL 12/17/2017 13:44 EST [facility] ALKALINE PHOSPHATASE - [facility] 48 38 - 126 U/L 12/17/2017 13:44 [facility] BILIRUBIN DIRECT CALC - [facility] 0.3 0.0 - 0.4 mg/dL 12/17/2017 13:44 [facility] BILIRUBIN TOTAL 0.6 0.2 - 1.3 mg/dL 12/17/2017 13:44 [facility] Unconjugated Bilirubin 0.3 0.0 - 1.1 mg/dL 12/17/2017 13:44 [facility] TOTAL PROTEIN - [facility] 8.3(H) 6.2 - 8.2 gm/dL 12/17/2017 13:44 [facility] SGOT/AST - [facility] 30 17 - 59 U/L 12/17/2017 13:44 [facility] SGPT/ALT - [facility] 54 21 - 72 U/L 12/17/2017 13:44 [facility] 12/17/2017 8:59 EST 12/17/2017 8:59 EST Narrative [facility] - 12/17/2017 13:44 EST Does PT Have a Latex Allergy? NO us Carlee Castillo DNP CHEMISTRY & BLOOD GAS ORDERABLES Final Result [facility] documented in this encounter Visit Diagnoses Not on filedocumented in this encounter Care Teams Product Development Worker Relationship Specialty Start Date End Date Dennis Cooper MD [address] [place] [id number] PCP - General 01/29/14 10/24/19 documented as of this encounter
--- OUTSIDE RECORDS SUMMARY | 2024-11-27 15:43 | XMS_ITS | Encounter Summary ---
Author Organization [facility] Address [address] [place] [address] Care Team Providers Care [employer] Supervisor Name Role Phone Dennis Cooper MD Primary Care Provider [phone] Encounter Details Date Type Department Care Team (Late st Contact Info) Description 06/18/2017 Historical Results Only [facility] [address] [place], [place] [id number] Carlee Castillo DNP [address] [place] [address] [id number] Social History Tobacco Use Types Packs/Day Years [...] PROFILE (INCLUDES CHOLESTEROL, TRIGLYCERIDES, HDL, LDL) Routine 06/18/2017 9:13 EDT documented in this encounter Results * (ABNORMAL) LIPID PROFILE (INCLUDES CHOLESTEROL, TRIGLYCERIDES, HDL, LDL) (06/18/2017 9:13 EDT) Triglyceride 252(H) 35 - 150 mg/dL 06/18/2017 10:33 EDT [facility] Cholesterol 310(H) 120 - 200 mg/dL 06/18/2017 10:33 EDT [facility] Chol/HDL Ratio 7.7(H) 0 - 5.0 06/18/2017 10:33 EDT [facility] Comment: DESIRABLE RATIO IS LESS THAN 4.1 PATIENTS ARE CONSIDERED AT RISK: WOMEN RATIO >5 MEN RATIO >6 FASTING? [place] [facility] [place] 7 9:13 EDT [facility] HDL 40 40 - 60 mg/dL 06/18/2017 10:33 EDT [facility] LDL CHOLESTEROL - [facility] 220(H) 60 - 100 mg/dL 06/18/2017 10:33 EDT [facility] Non HDL Cholesterol 270 mg/dl 06/18/2017 10:33 EDT [facility] Comment: Desirable: ?Less than 130 Borderline High: ??130-159 High: ? 160-189 Very High: ?Greater than or equal to 190 06/18/2017 9:13 EDT 06/18/2017 9:13 EDT Narrative [facility] - 06/18/2017 10:33 EDT Does PT Have a Latex Allergy? NO us Carlee Castillo DNP CHEMISTRY & BLOOD GAS ORDERABLES Final Result [facility] documented in this encounter Visit Diagnoses Not on filedocumented in this encounter Care Teams [employer] Supervisor Relationship Specialty Start Date End Date Dennis Cooper MD [address] [place] [address] PCP - General 01/29/14 10/24/19 documented as of this encounter
--- OUTSIDE RECORDS SUMMARY | 2024-11-27 15:43 | XMS_ITS | Encounter Summary ---
Author Organization [facility] Address [address] [place] [address] Care Team Providers Care E Learning Coordinator Name Role Phone Carlee Castillo DNP Primary Care Provider [phone] Reason for Visit * Reason Comments Labs Only PPD Encounter Details Date Type Department Care Team (Late st Contact Info) Description 04/16/2021 15:00 EDT Nurse Only [facility] [address] [address] Nurse, [facility] Screening-pulmonary TB (Primary Dx) Social History [...] 14:46 EDT documented as of this encounter Last Filed Vital Signs Vital Sign Reading Time Taken Comments Blood Pressure - - Pulse - - Temperature 36.4 ??C (97.6 ??F) 04/16/2021 1451 EDT Respiratory Rate - - Oxygen Saturation - - Inhaled Oxygen Concentration - - Weight - - Height - - Body Mass Index - - documented in this encounter Progress Notes * Katie Carranza RN - 04/16/2021 1500 EDT Here for PPD Plant Confirmed patient Name//Allergies/No BCG exposure and ability to RTC in 48-72 hours. documented in this encounter Plan of Treatment Not on file documented as of this encounter Procedures Procedure Name Priority Date/Time Associated Diagnosis Comments PLACE PPD Routine 04/18/2021 15:53 EDT Screening-pulmonary TB documented in this encounter Results * PLACE PPD (04/18/2021 15:53 EDT) TB Skin Test neg [facility] P OINT OF CARE Induration 0 mm [facility] POI NT OF CARE Skin TISSUE SPECIMEN FROM SKIN / Unknown 04/18/2021 15:53 EDT Carlee Castillo DNP POINT OF CARE TEST ORDERABLES Fi nal Result [facility] POINT OF CARE documented in this encounter Visit Diagnoses Diagnosis Screening-pulmonary TB- Primary Screening examination for pulmonary tuberculosis documented in this encounter Care Teams E Learning Coordinator Relationship Specialty Start Date End Date Carlee Castillo DNP [address] [place] [id number] PCP - General 10/25/19 07/20/23 documented as of this encounter
[2024-11-28 20:48] LABS: HIV-1/2 Ag & Ab Screen Negative (Negative)
[2024-11-28 21:27] LABS: Hepatitis C Ab w Rflx HCV PCR Reactive (Negative)
[2024-11-29 10:09] LABS: Syphilis Serology (RPR) Negative (Negative)
[2024-11-30 08:30] LABS: HCV RNA Qualitative Undetected (Undetected)
[2024-11-30 23:18] LABS: HBV DNA Detect/Quant, PCR Undetected IU/mL (Undetected)
== END 2024-11-27 15:40 | disposition home or self-care (01) ==
LOC: LBO 15:39
PROVIDERS: PCP Nurse Practitioner; Visit Provider Nurse Practitioner
DX: Z11.3 Encounter for screening for infections with a predominantly sexual mode of transmission (principal); I10 Essential (primary) hypertension
CPT/HCPCS: 36415; 86803; 87389; 87517; 87522; 86592